=== PATIENT | male | born 1965 | race Caucasian/White ===

== ENCOUNTER → 2016-06-26 | Outpatient (CLI) | payer OTHER ==
[~2016-06-26] MED LIST: CHOL100010 PO; CINN500T PO; CLOB-65 EXT; FEXO3TAB PO; FINA5TAB PO; FLM4 PO; FURO80TA63 PO; INSU1INJ33 SC; INSUINJ4 SQ; LIDO5DIS10 TD; LORA-741 PO; LPR50X PO; LPT/40 PO; MAGN1TAB19 PO; METH-446 PO; MORP1TAB11 PO; MULT-884 PO; NTRGSL/4 UT; NVLGI SC; NXM/40 PO; OMEG10007 PO; OXYC-57 PO; PARO1TAB27 PO; POTA-74 PO; PROM25TA16 PO; RANI300T PO; SPIR50TA3 PO; SYMIN160 INH; TRAZ50TA35 PO; VNTHFA/IN INH; ZFRODT4HP PO; ZOLP5TAB6 PO; ZRX5 PO
[2016-06-26 17:59] LABS: BASO % 0.7 %; BASO ABS # 0.05 K/uL (0-0.2); COMPLETE YES; EOS % 4.8 %; HEMATOCRIT 41.6 % (42-52); IG% 0.1 %; LYMPH % 48.8 %; LYMPH ABS # 3.37 K/uL (1.2-3.4); MEAN CELL VOLUME 90.8 fL (80-100); MEAN CORPUSCULAR HEMOGLOBIN 32.5 pg (25-34); MEAN CORPUSCULAR HGB CONC 35.8 g/dl (32-36); MEAN PLATELET VOLUME 10.6 fL (7.4-10.4); NEUT % 32.6 %; PLATELET COUNT 263 K/uL (130-400); RED BLOOD COUNT 4.58 M/uL (4.7-6.1); WHITE BLOOD COUNT 6.91 K/uL (4.8-10.8)
[2016-06-26 19:00] LABS: ALT/SGPT 27 U/L (12-78); BLOOD UREA NITROGEN 12 mg/dl (7-18); BUN/CREATININE RATIO 11.2 (10-20); CALCIUM 8.7 mg/dl (8.5-10.1); CARBON DIOXIDE 27 mmol/L (21-32); CHLORIDE 101 mmol/L (98-107); GLUCOSE 215 mg/dl (70-99); POTASSIUM 3.7 mmol/L (3.5-5.1); SODIUM 138 mmol/L (136-145)
[2016-06-26 19:10] LABS: ALKALINE PHOSPHATASE 95 U/L (45-117); AST/SGOT 19 U/L (15-37); THYROID STIMULATING HORMONE 0.946 uIu/ml (0.300-4.500)
== END | disposition home or self-care (01) ==
LOC: C.RAD1850 15:59
PROVIDERS: ATTEND Family Medicine
DX: R06.02 Shortness of breath (principal)

== ENCOUNTER → 2016-07-09 | Outpatient (CLI) | payer OTHER ==
[2016-07-09 13:18] LABS: CHOLESTEROL/HDL RATIO 4.7
== END | disposition home or self-care (01) ==
LOC: C.LAB 10:38
PROVIDERS: ATTEND Nurse Practitioner Family
DX: E78.5 Hyperlipidemia, unspecified (principal)

== ENCOUNTER → 2016-07-28 | Outpatient (CLI) | payer OTHER ==
--- NOTE | 2016-07-28 12:36 | DIAGNOSTIC IMAGING REPORT ---
CHEST 2 VIEWS ROUTINE CLINICAL HISTORY: [id number] dyspnea COMPARISON STUDY: 03/11/2015 FINDINGS: The bones soft tissues and hemidiaphragms are normal. The cardiomediastinal silhouette is normal. The lungs are clear. The pulmonary vasculature is normal. IMPRESSION: Negative chest. Electronically signed by: Gaudencio Manley M.D. 07/28/2016 12:34 PM Dictated Date/Time: 07/28/2016 12:34 PM
== END | disposition home or self-care (01) ==
LOC: C.RAD 11:25
PROVIDERS: ATTEND Family Medicine
DX: R06.02 Shortness of breath (principal)

== ENCOUNTER → 2016-07-28 | Outpatient (CLI) | payer OTHER | END | disposition home or self-care (01) | LOC: C.RDSM 08:00 | PROVIDERS: ATTEND Physical Medicine & Rehabilitation Sports Medicine | DX: M25.561 Pain in right knee (principal); R06.02 Shortness of breath ==

== ENCOUNTER → 2016-08-21 | Outpatient (CLI) | payer OTHER ==
[2016-08-21 17:47] LABS: BLOOD UREA NITROGEN 13 mg/dl (7-18); BUN/CREATININE RATIO 9.4 (10-20); CALCIUM 8.4 mg/dl (8.5-10.1); CARBON DIOXIDE 33 mmol/L (21-32); CHLORIDE 103 mmol/L (98-107); GLUCOSE 177 mg/dl (70-99); SODIUM 141 mmol/L (136-145)
[2016-08-22 06:28] LABS: ESTIMATED AVERAGE GLUCOSE 169 mg/dl; HA1C FLAG Normal (Normal)
== END ==
LOC: C.LAB 16:05
PROVIDERS: ATTEND Family Medicine
DX: E11.9 Type 2 diabetes mellitus without complications (principal); E55.9 Vitamin D deficiency, unspecified; R60.9 Edema, unspecified

== ENCOUNTER → 2016-10-21 | Outpatient (CLI) | payer OTHER ==
[2016-10-21 17:12] LABS: BLOOD UREA NITROGEN 16 mg/dl (7-18); BUN/CREATININE RATIO 12.5 (10-20); CALCIUM 8.8 mg/dl (8.5-10.1); CARBON DIOXIDE 32 mmol/L (21-32); CHLORIDE 102 mmol/L (98-107); GLUCOSE 128 mg/dl (70-99); MAGNESIUM 2.3 mg/dl (1.8-2.4); PHOSPHORUS 3.8 mg/dl (2.5-4.9); SODIUM 142 mmol/L (136-145)
== END | disposition home or self-care (01) ==
LOC: C.LAB 15:36
PROVIDERS: ATTEND Internal Medicine Nephrology
DX: E87.6 Hypokalemia (principal)

== ENCOUNTER → 2016-12-18 | Outpatient (CLI) | payer OTHER ==
[2016-12-18 17:14] LABS: BLOOD UREA NITROGEN 10 mg/dl (7-18); BUN/CREATININE RATIO 9.1 (10-20); CALCIUM 8.6 mg/dl (8.5-10.1); CARBON DIOXIDE 32 mmol/L (21-32); CHLORIDE 100 mmol/L (98-107); GLUCOSE 152 mg/dl (70-99); POTASSIUM 3.7 mmol/L (3.5-5.1); SODIUM 137 mmol/L (136-145)
[2016-12-18 17:16] LABS: MAGNESIUM 2.1 mg/dl (1.8-2.4)
[2016-12-18 17:17] LABS: URINE TOTAL PROTEIN < 5.0 mg/dl (0-11.9)
[2016-12-19 07:19] LABS: ESTIMATED AVERAGE GLUCOSE 163 mg/dl; HA1C FLAG Normal (Normal)
--- NOTE | 2016-12-24 07:35 | CODING QUERY MEDICAL NECESSITY ---
CQSUPPORTING DIAGNOSIS NEEDED A supporting diagnosis is required for the test/procedure performed on this patient in order for us to be reimbursed by the patient's insurance. Please provide a supporting diagnosis for the following test/procedure listed below next to the test name along with your signature. *If there is no additional diagnosis for this patient that would support the following test/procedure please document that below next to the test/procedure. Test(s)/Procedure(s) that require a supporting diagnosis: DOS 12/18/16 VITAMIN B12 TEST ORDERED BY LEXIE PLUMMER Provider Signature: Date: Thank you Yazmin Andrews Health Information Management Once completed, please kindly fax back to [phone] For questions please call [phone]
== END | disposition home or self-care (01) ==
LOC: C.LAB 15:27
PROVIDERS: ATTEND Physician Assistant
DX: E11.42 Type 2 diabetes mellitus with diabetic polyneuropathy (principal); E11.22 Type 2 diabetes mellitus with diabetic chronic kidney disease; N18.3 Chronic kidney disease, stage 3 (moderate); E55.9 Vitamin D deficiency, unspecified; R60.9 Edema, unspecified; E11.9 Type 2 diabetes mellitus without complications; Z79.899 Other long term (current) drug therapy

== ENCOUNTER → 2016-12-26 | Day surgery (SDC) | payer OTHER ==
[2016-12-18 10:22] VITALS: Ht 182.9 cm; Wt 119.1 kg
[~2016-12-26] VITALS: Ht 182.9 cm; Wt 119.1 kg
[~2016-12-26] MED LIST changes: -FINA5TAB PO; -FLM4 PO; -INSUINJ4 SQ; -LIDO5DIS10 TD; +LIDOCAINE HCL 2% 2 ML VIAL (20MG/ML) ONE; -OMEG10007 PO; +PROPOFOL IV EMULSION 10 MG/ML 20 ML VIAL IV ONE; +SODIUM CHLORIDE 0.9% 500ML 500 ML IV ONE
--- NOTE | 2016-12-26 12:54 | Endo History and Physical ---
History & Physical Date of Service: Dec 26, 2016. Chief Complaint: Dysphagia, Hx of colon polyps Referring Physician: Dr Elkins History of Present Illness 51 yo CM who presents for EGD secondary to dysphagia and GERD and colonoscopy secondary to history of colon polyps. Past Medical History Diabetes, Arthritis, Male Genitourinary Prob., Reflux, High Cholesterol, Sleep Apnea, Hypertension, COPD Past Surgical History Hx Cardiac Surgery: Yes (HEART CATH, NO STENT) Hx Internal Defibrillator: No Hx Pacemaker: No Hx Abdominal Surgery: Yes (LT INGUINAL HERNIA REPAIR, APPY, STEPHANY) Hx of Implantable Prosthesis: No Hx Post-Op Nausea and Vomiting: No Hx Cancer Surgery: No Hx Thoracic Surgery: No Hx Orthopedic: Yes (LT/RT ELBOW, BACK SURGERY, CERVICAL SURGERY (FULL ROM), LT CTR, RT SHOULDER) Hx Urinary Tract Surgery: No Family History None Social History Smoking Status: Former Smoker Hx Substance Use: Yes (SEE MED LIST) Hx Alcohol Use: No Allergies Coded Allergies: Codeine (Verified Allergy, Intermediate, PRURITIS, HIVES, 12/18/16) CAN TOLERATE HYDROCODONE (ON AT HOME) Iodinated Diagnostic Agents (Verified Allergy, Unknown, HIVES, 12/18/16) Iodine (Verified Allergy, Unknown, HIVES, 12/18/16) Meperidine (Verified Allergy, Unknown, HIVES, 12/18/16) Morphine (Verified Allergy, Unknown, PRURITIS, HIVES, 12/18/16) CAN TOLERATE HYDROCODONE (ON AT HOME) Metformin (Verified Adverse Reaction, Intermediate, severe diarrhea, cramping, 12/18/16) Amoxicillin (Verified Adverse Reaction, Mild, GI SYMPTOMS, 12/18/16) Clavulanic Acid (Verified Adverse Reaction, Mild, GI SYMPTOMS, 12/18/16) Current Medications Reported Home Medications Medications Dose Route/Sig Max Daily Dose Days Date Category Dose Instructions Mucinex Allergy (Fexofenadine HCl) 180 Mg Tab 2 Tabs PO QPM 12/18/16 Reported Trazodone (Trazodone HCl) 50 Mg Tab 50 Mg PO HS 12/18/16 Reported Ventolin Hfa (Albuterol) 200 Puffs/20376 Mcg Aers 2-4 Puffs INH Q6H PRN 12/18/16 Reported Symbicort 160/4.5 Inhaler (Budesonide/Formoterol Fumarate) Aero 2 Puffs INH BID PRN 12/18/16 Reported Paxil (Paroxetine HCl) 20 Mg Tab 20 Mg PO QPM 12/18/16 Reported Robaxin (Methocarbamol) 750 Mg Tab 750 Mg PO TID PRN 12/18/16 Reported Tresiba Flextouch (Insulin Degludec) 100 Unit/Ml Inj 50-76 Units SC HS 12/18/16 Reported Percocet 5MG/325MG (Oxycodone/Acetaminophen) Tab 1 Tablet PO TID 03/04/16 Reported Morphine Sulfate Er (Morphine Sulfate) 15 Mg Tab 1 Tab PO BID 03/04/16 Reported Lipitor (Atorvastatin) 40 Mg Tab 40 Mg PO HS 03/04/16 Reported Nitrostat (Nitroglycerin) 0.4 Mg Tab 0.4 Mg UT PRN PRN 10/29/15 Reported Temovate 0.05% (Clobetasol Propionate) Cr 1 Appln EXT DIRECTED PRN 10/29/15 Reported Paxil (Paroxetine HCl) 20 Mg Tab 20 Mg PO QPM 10/29/15 Reported Lasix (Furosemide) 80 Mg Tab 120 Mg PO QAM 10/29/15 Reported Zolpidem Tartrate 5 Mg Tab 1 Tab PO HS PRN 06/04/15 Reported Metoprolol Tartrate 50 Mg Tab 1 Tab PO BID 06/04/15 Reported Magnesium Oxide (Magnesium Oxide (Mg Supplement) 400 Mg Tab 1 Tab PO QPM 06/04/15 Reported Ativan (Lorazepam) 0.5 Mg Tab 0.5 Mg PO TID 06/04/15 Reported Cinnamon 500 Mg Tab 2 Tab PO QAM 06/04/15 Reported Aldactone (Spironolactone) 50 Mg Tab 50 Mg PO QAM 03/11/15 Reported Zantac (Ranitidine Hcl) 300 Mg Tab 300 Mg PO BID 12/17/14 Reported Promethazine HCl 25 Mg Tab 25 Mg PO UD PRN 12/17/14 Reported Potassium Chloride Er (Potassium Chloride) 10 Meq Tab 10 Meq PO BID 12/17/14 Reported Novolog (Insulin Aspart) 100 Unit/ Inj Units SC TIDM 12/17/14 Reported sliding scale 20 UNITS WITH BREAKFAST 30 UNITS WITH LUNCH 50 UNITS WITH SUPPER + Nexium (Esomeprazole Magnesium) 40 Mg Cap 40 Mg PO BIDM 12/17/14 Reported Vital Signs Weight (Kilograms): 119.09 Height (Feet): 6 Height (Inches): 0 Date Time Temp Pulse Resp B/P (MAP) Pulse Ox O2 Delivery O2 Flow Rate FiO2 12/26/16 12:23 36.7 60 20 119/73 (88) 95 Room Air Physical Exam General Appearance: WD/WN, no apparent distress Respiratory/Chest: Auscultation: breath sounds normal Cardiovascular: Heart Auscultation: RRR Abdomen: Bowel Sounds: normal Inspection & Palpation: soft, non-distended, no tenderness, guarding & rebound Assessment and Plan Assessment: 51 yo CM who presents for EGD secondary to dysphagia and GERD and colonoscopy secondary to history of colon polyps. Plan: Proceed with EGD and colonoscopy.
--- NOTE | 2016-12-26 13:32 | GI REPORT ---
Procedure Date: 12/26/2016 1:02 PM Procedure: Upper GI endoscopy Indications: Dysphagia, Gastro-esophageal reflux disease Medicines: Monitored Anesthesia Care Complications: No immediate complications. Estimated Blood Loss: Estimated blood loss: none. Procedure: Pre-Anesthesia Assessment: - Prior to the procedure, a History and Physical was performed, and patient medications and allergies were reviewed. The patient's tolerance of previous anesthesia was also reviewed. The risks and benefits of the procedure and the sedation options and risks were discussed with the patient. All questions were answered, and informed consent was obtained. Prior Anticoagulants: The patient has taken no previous anticoagulant or antiplatelet agents. ASA Grade Assessment: III - A patient with severe systemic disease. After reviewing the risks and benefits, the patient was deemed in satisfactory condition to undergo the procedure. After obtaining informed consent, the endoscope was passed under direct vision. Throughout the procedure, the patient's blood pressure, pulse, and oxygen saturations were monitored continuously. The On-site loaner was introduced through the mouth, and advanced to the second part of duodenum. The upper GI endoscopy was accomplished without difficulty. The patient tolerated the procedure well. Findings: The esophagus was normal. A small hiatus hernia was present. One 10 mm sessile polyp with bleeding and no stigmata of recent bleeding was found in the gastric body. The polyp was removed with a saline injection-lift technique using a hot snare at 20 schneider. Resection and retrieval were complete. One hemostatic clip was successfully placed (MR conditional). Localized mild inflammation characterized by erythema was found in the gastric antrum. Biopsies were taken with a cold forceps for histology. The examined duodenum was normal. Impression: - Normal esophagus. - Small hiatus hernia. - One gastric polyp. Resected and retrieved. Clip (MR conditional) was placed. - Gastritis. Biopsied. - Normal examined duodenum. Recommendation: - Resume previous diet. - Continue present medications. - Return to primary care physician as previously scheduled. - Await pathology results. Garrison Fish, DO 12/26/2016 1:31:49 PM This report has been signed electronically. Note Initiated On: 12/26/2016 1:02 PM I attest to the content of the Intraoperative Record and orders documented therein, exceptions below
--- NOTE | 2016-12-26 14:00 | Anesthesiology Progress Note ---
Anesthesia Post Op Note Date & Time Dec 26, 2016 at 14:00 Vital Signs Vital Signs Past 12 Hours Date Time Temp Pulse Resp B/P (MAP) Pulse Ox O2 Delivery O2 Flow Rate FiO2 12/26/16 12:23 36.7 60 20 119/73 (88) 95 Room Air Notes Mental Status: alert / awake / arousable, participated in evaluation Pt Amnestic to Procedure: Yes Nausea / Vomiting: adequately controlled Pain: adequately controlled Airway Patency, RR, SpO2: stable & adequate BP & HR: stable & adequate Hydration State: stable & adequate Anesthetic Complications: no major complications apparent
--- NOTE | 2016-12-26 14:23 | GI REPORT ---
Procedure Date: 12/26/2016 1:31 PM Procedure: Colonoscopy Indications: High risk colon cancer surveillance: Personal history of colonic polyps Medicines: Monitored Anesthesia Care Complications: No immediate complications. Estimated Blood Loss: Estimated blood loss: none. Procedure: Pre-Anesthesia Assessment: - Prior to the procedure, a History and Physical was performed, and patient medications and allergies were reviewed. The patient's tolerance of previous anesthesia was also reviewed. The risks and benefits of the procedure and the sedation options and risks were discussed with the patient. All questions were answered, and informed consent was obtained. Prior Anticoagulants: The patient has taken no previous anticoagulant or antiplatelet agents. ASA Grade Assessment: III - A patient with severe systemic disease. After reviewing the risks and benefits, the patient was deemed in satisfactory condition to undergo the procedure. After I obtained informed consent, the scope was passed under direct vision. Throughout the procedure, the patient's blood pressure, pulse, and oxygen saturations were monitored continuously. The Scope was introduced through the anus and advanced to the cecum, identified by appendiceal orifice and ileocecal valve. The colonoscopy was performed without difficulty. The patient tolerated the procedure well. The quality of the bowel preparation was fair. The ileocecal valve and the rectum were photographed. Findings: Solid stool was found in the cecum, precluding visualization. Three flat polyps were found in the transverse colon. The polyps were 4 to 7 mm in size. These polyps were removed with a hot snare. Resection was complete, but the polyp tissue was only partially retrieved. Internal hemorrhoids were found during retroflexion. The hemorrhoids were small. Impression: - Stool in the cecum. - Three 4 to 7 mm polyps in the transverse colon, removed with a hot snare. Complete resection. Partial retrieval. - Internal hemorrhoids. Recommendation: - Resume previous diet. - Continue present medications. - Repeat colonoscopy for surveillance based on pathology results. - Return to primary care physician as previously scheduled. Garrison Fish, DO 12/26/2016 2:22:16 PM This report has been signed electronically. Note Initiated On: 12/26/2016 1:31 PM I attest to the content of the Intraoperative Record and orders documented therein, exceptions below
[2016-12-26 14:26] VITALS: BP 111/75; PULSE 56; O2SAT 95
--- NOTE | 2016-12-26 14:41 | Discharge Instructions ---
Endoscopy Patient Instructions Date / Procedure(s) Performed Dec 26, 2016. Colonoscopy, EGD Allergy Information Coded Allergies: Codeine (Verified Allergy, Intermediate, PRURITIS, HIVES, 12/18/16) CAN TOLERATE HYDROCODONE (ON AT HOME) Iodinated Diagnostic Agents (Verified Allergy, Unknown, HIVES, 12/18/16) Iodine (Verified Allergy, Unknown, HIVES, 12/18/16) Meperidine (Verified Allergy, Unknown, HIVES, 12/18/16) Morphine (Verified Allergy, Unknown, PRURITIS, HIVES, 12/18/16) CAN TOLERATE HYDROCODONE (ON AT HOME) Metformin (Verified Adverse Reaction, Intermediate, severe diarrhea, cramping, 12/18/16) Amoxicillin (Verified Adverse Reaction, Mild, GI SYMPTOMS, 12/18/16) Clavulanic Acid (Verified Adverse Reaction, Mild, GI SYMPTOMS, 12/18/16) Discharge Date / Findings Dec 26, 2016. EGD: Gastric polyp s/p resection, Gastritis with biopsies, Hiatal hernia Colonoscopy: Colon polyps, Internal hemorrhoids Medication Instructions Stopped Medication(s): Insulin OK to resume all medications today as prescribed Reported Home Medications Medications Dose Route/Sig Max Daily Dose Days Date Category Dose Instructions Mucinex Allergy (Fexofenadine HCl) 180 Mg Tab 2 Tabs PO QPM 12/18/16 Reported Trazodone (Trazodone HCl) 50 Mg Tab 50 Mg PO HS 12/18/16 Reported Ventolin Hfa (Albuterol) 200 Puffs/67622 Mcg Aers 2-4 Puffs INH Q6H PRN 12/18/16 Reported Symbicort 160/4.5 Inhaler (Budesonide/Formoterol Fumarate) Aero 2 Puffs INH BID PRN 12/18/16 Reported Paxil (Paroxetine HCl) 20 Mg Tab 20 Mg PO QPM 12/18/16 Reported Robaxin (Methocarbamol) 750 Mg Tab 750 Mg PO TID PRN 12/18/16 Reported Tresiba Flextouch (Insulin Degludec) 100 Unit/Ml Inj 50-76 Units SC HS 12/18/16 Reported Percocet 5MG/325MG (Oxycodone/Acetaminophen) Tab 1 Tablet PO TID 03/04/16 Reported Morphine Sulfate Er (Morphine Sulfate) 15 Mg Tab 1 Tab PO BID 03/04/16 Reported Lipitor (Atorvastatin) 40 Mg Tab 40 Mg PO HS 03/04/16 Reported Nitrostat (Nitroglycerin) 0.4 Mg Tab 0.4 Mg UT PRN PRN 10/29/15 Reported Temovate 0.05% (Clobetasol Propionate) Cr 1 Appln EXT DIRECTED PRN 10/29/15 Reported Paxil (Paroxetine HCl) 20 Mg Tab 20 Mg PO QPM 10/29/15 Reported Lasix (Furosemide) 80 Mg Tab 120 Mg PO QAM 10/29/15 Reported Zolpidem Tartrate 5 Mg Tab 1 Tab PO HS PRN 06/04/15 Reported Metoprolol Tartrate 50 Mg Tab 1 Tab PO BID 06/04/15 Reported Magnesium Oxide (Magnesium Oxide (Mg Supplement) 400 Mg Tab 1 Tab PO QPM 06/04/15 Reported Ativan (Lorazepam) 0.5 Mg Tab 0.5 Mg PO TID 06/04/15 Reported Cinnamon 500 Mg Tab 2 Tab PO QAM 06/04/15 Reported Aldactone (Spironolactone) 50 Mg Tab 50 Mg PO QAM 03/11/15 Reported Zantac (Ranitidine Hcl) 300 Mg Tab 300 Mg PO BID 12/17/14 Reported Promethazine HCl 25 Mg Tab 25 Mg PO UD PRN 12/17/14 Reported Potassium Chloride Er (Potassium Chloride) 10 Meq Tab 10 Meq PO BID 12/17/14 Reported Novolog (Insulin Aspart) 100 Unit/ Inj Units SC TIDM 12/17/14 Reported sliding scale 20 UNITS WITH BREAKFAST 30 UNITS WITH LUNCH 50 UNITS WITH SUPPER + Nexium (Esomeprazole Magnesium) 40 Mg Cap 40 Mg PO BIDM 12/17/14 Reported Provider Instructions Activity Restrictions - No exercising or heavy lifting for 24 hours. - Do not drink alcohol the day of the procedure. - Do not drive a car or operate machinery until the day after the procedure. - Do not make any important decisions or sign important papers in 24 hours after the procedure. Following Day: - Return to full activity which may include returning to work/school. Diet Start your diet with liquids and light foods (jello, soup, juice, toast). Then eat your usual diet if not nauseated. Treatment For Common After Affects For mild abdominal pain, bloating, or excessive gas: - Rest - Eat lightly - Lie on right side Follow-Up Information Follow-up with Dr Elkins as scheduled Anesthesia Information What You Should Know You have had a procedure that required some medicine to reduce anxiety and discomfort. This treatment is called moderate sedation. After receiving the treatment, you may be sleepy, but you will be able to breathe on your own. The effects of the treatment may last for several hours. Follow these instructions along with Activity/Diet recommendations noted above: * Do NOT do anything where dizziness or clumsiness would be dangerous. * Rest quietly at home today, then you can be up and about tomorrow. * Have a responsible person stay with you the rest of today. * You may have had an I.V. today. If so, you may take the dressing off later today. Recommendations Call your doctor if: * Trouble breathing * Continuous vomiting for more than 24 hours * Temperature above 101 degrees * Severe abdominal pain or bloating * Pain not relieved by pain medicine ordered * There is increased drainage or redness from any incision * A large amount of rectal bleeding greater than 2-3 tablespoons. (If you had a polyp/s removed or have hemorrhoids, a small amount of blood - from the rectum is to be expected.) * You have any unanswered questions or concerns. IN THE EVENT OF A SERIOUS EMERGENCY, GO TO THE NEAREST EMERGENCY ROOM Your discharge instructions were prepared by provider Garrison Fish. Patient Instructions Signature Page Tommie Gomez Patient (or Guardian) Signature/Date: I have read and understand the instructions given to me by my caregivers. Caregiver/RN/Doctor Signature/Date: The above-named patient and/or guardian has received patient instructions on this date. + Original Patient Signature Page (only) stays with chart. Please make copy for patient.
== END | disposition home or self-care (01) ==
LOC: C.GI 11:27
PROVIDERS: ATTEND Internal Medicine
DX: Z12.11 Encounter for screening for malignant neoplasm of colon (principal); D12.3 Benign neoplasm of transverse colon; K29.50 Unspecified chronic gastritis without bleeding; K64.8 Other hemorrhoids; D13.1 Benign neoplasm of stomach; K44.9 Diaphragmatic hernia without obstruction or gangrene; K21.9 Gastro-esophageal reflux disease without esophagitis; Z79.899 Other long term (current) drug therapy

== ENCOUNTER 2017-01-20 17:25 | Inpatient (IN) | payer OTHER ==
[~2017-01-20] VITALS: Ht 182.9 cm; Wt 117.6 kg
[~2017-01-20 17:25] MED LIST changes: -ZFRODT4HP PO; -ZRX5 PO
--- NOTE | 2017-01-20 17:50 | EMERGENCY ROOM VISIT NOTE ---
History Report prepared by Apolinar: Annita Villarreal Under the Supervision of: Dr. Gonsalo Warren D.O. 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 The patient states that for the last 2 weeks he has not been feeling well and had labs ordered by his doctor. He reports that he was at [facility] today when his nose started bleeding and he got a call from Randi Fish PA-C about his labs that came back abnormal. He notes that he was told to come into the ED for low potassium and electrolytes. The patient complains of intermittent headaches, shortness of breath, nausea, vomiting, constipation, and urinary frequency. He states that he did have a 14 pound weight loss over the last week. He notes a history of kidney disease and neuropathy. The patient states that he has had some chest pain from his acid reflux that he takes nitroglycerin for. Chest pain from acid reflux takes nitroglycerin. He reports that he is on Aldactone and was taken off of Lasix recently. He states that he recently had an echo done of his heart when he saw his bell spinner. Source of History: patient Onset: today Position: other (global) Quality: other (abnormal labs) Timing: other (episode) Associated Symptoms: + headache, + chest pain, + SOB, + nausea, + vomiting, + urinary symptoms Note: The patient complains of constipation. Review of Systems See HPI for pertinent positives & negatives. A total of 10 systems reviewed and were otherwise negative. Past Medical & Surgical Medical Problems: (1) Diab Gabrielle Wo Compl, Type Ii Or Unspec Type, Not Uncntrld (2) Diabetes (3) Edema (4) Esophageal Reflux (5) Hyperlipidemia Nec/Nos (6) Hypertension Nos (7) Hypomagnesemia (8) Neuropathy (9) severe hypokalemia, acute on crhonic renal injury Surgical Problems: (1) History of cholecystectomy (2) Hx of cervical spine surgery Family History Cancer Diabetes mellitus FH: heart disease FHx: gallbladder disease FHx: lung disease Hypertension Kidney disease Kidney stones Social History Smoking Status: Never Smoker Alcohol Use: none Drug Use: none Marital Status: Housing Status: lives with family Occupation Status: employed Current/Historical Medications Scheduled Atorvastatin (Lipitor), 40 MG PO HS Cinnamon (Cinnamon), 2 TAB PO QAM Esomeprazole Magnesium (Nexium), 40 MG PO BIDM Furosemide (Lasix), 120 MG PO QAM Insulin Aspart (Novolog), UNITS SC TIDM Insulin Degludec (Tresiba Flextouch), 50-76 UNITS SC HS Lorazepam (Ativan), 0.5 MG PO TID Magnesium Oxide (Mg Supplement (Magnesium Oxide), 1 TAB PO QPM Metolazone (Metolazone), 5 MG PO DAILY Metoprolol Tartrate (Metoprolol Tartrate), 1 TAB PO BID Morphine Sulfate (Morphine Sulfate Er), 1 TAB PO BID Oxycodone/Acetaminophen 5MG/325MG (Percocet 5MG/325MG), 1 TABLET PO TID Paroxetine (Paxil), 20 MG PO QPM Potassium Chloride (Potassium Chloride Er), 10 MEQ PO BID Ranitidine Hcl (Zantac), 300 MG PO BID Trazodone Hcl (Trazodone), 50 MG PO HS Scheduled PRN Albuterol Hfa (Ventolin Hfa), 2-4 PUFFS INH Q6H PRN for SOB/Wheezing Budesonide/Formoterol Fumarate (Symbicort 160/4.5 Inhaler ), 2 PUFFS INH BID PRN for Shortness of Breath Nitroglycerin (Nitrostat), 0.4 MG UT PRN PRN for chest pain Ondansetron (Ondansetron Odt), 4 MG PO Q4 PRN for Nausea Promethazine HCl (Promethazine HCl), 25 MG PO UD PRN for Nausea Allergies Coded Allergies: Codeine (Verified Allergy, Intermediate, PRURITIS, HIVES, 01/20/17) CAN TOLERATE HYDROCODONE (ON AT HOME) ON MS CONTIN WELL Iodinated Diagnostic Agents (Verified Allergy, Unknown, HIVES, 01/20/17) Iodine (Verified Allergy, Unknown, HIVES, 01/20/17) Meperidine (Verified Allergy, Unknown, HIVES, 01/20/17) Spironolactone (Unverified Allergy, Unknown, GROWING BREASTS, 01/20/17) Metformin (Verified Adverse Reaction, Intermediate, severe diarrhea, cramping, 01/20/17) Amoxicillin (Verified Adverse Reaction, Mild, GI SYMPTOMS, 01/20/17) Clavulanic Acid (Verified Adverse Reaction, Mild, GI SYMPTOMS, 01/20/17) Physical Exam Vital Signs Date Time Temp Pulse Resp B/P (MAP) Pulse Ox O2 Delivery O2 Flow Rate FiO2 01/20/17 19:02 121/77 01/20/17 18:55 69 15 91 01/20/17 18:31 124/78 01/20/17 18:25 67 10 91 01/20/17 18:20 74 01/20/17 18:13 69 18 124/70 94 Room Air 01/20/17 18:11 124/70 01/20/17 17:30 36.6 70 18 156/88 93 Room Air Physical Exam GENERAL: Patient is awake, alert, and in no acute distress. Patient is resting comfortably and showing no signs of anxiety EYES: The conjunctivae are clear. The pupils are round and reactive. EARS, NOSE, MOUTH AND THROAT: The nose is without any evidence of any deformity. Mucous membranes are moist tongue is midline NECK: The neck is nontender and supple. RESPIRATORY: Lung sounds diminished throughout, scattered rhonchi, no tachypnea or conversational dyspnea noted. CARDIOVASCULAR: Regular rate and rhythm noted there no murmurs rubs or gallops normal S1 normal S2 GASTROINTESTINAL: The abdomen is soft. Bowel sounds are present in all quadrants. Abdomen is nontender MUSCULOSKELETAL/EXTREMITIES: There is no evidence of gross deformity full range of motion is noted in the hips and shoulders SKIN: There is no obvious evidence of any rash. Pedal edema with venostasis changes NEUROLOGIC: Patient is awake alert and oriented x3 strength is symmetric patellar reflexes are 1+ bilaterally Medical Decision & Procedures ER Provider Diagnostic Interpretation: X-ray results as stated below per interpretation by me and the radiologist. CHEST ONE VIEW PORTABLE FINDINGS: Anterior cervical spine fusion is incidentally noted. There is no pneumothorax or pleural effusion. There is no consolidation to suggest pneumonia. Pulmonary vascularity is normal. Cardiomediastinal silhouette is normal. No lucency is identified under the hemidiaphragms to suggest pneumoperitoneum. IMPRESSION: No acute cardiopulmonary findings. Electronically signed by: El Phelan M.D. 01/20/2017 6:43 PM Dictated Date/Time: 01/20/2017 6:43 PM Laboratory Results Test 01/20/17 17:55 Prothrombin Time 10.9 SECONDS (9.0-12.0) Prothromb Time International Ratio 1.0 (0.9-1.1) Activated Partial Thromboplast Time 26.7 SECONDS (21.0-31.0) Partial Thromboplastin Ratio 1.0 Osmolality 287 mOsm/kg (280-300) Total Bilirubin 0.9 mg/dl (0.2-1) Direct Bilirubin 0.2 mg/dl (0-0.2) Aspartate Amino Transf (AST/SGOT) 31 U/L (15-37) Alanine Aminotransferase (ALT/SGPT) 25 U/L (12-78) Alkaline Phosphatase 94 U/L (45-117) Troponin I 0.016 ng/ml (0-0.045) Pro-B-Type Natriuretic Peptide 143 pg/ml (0-900) Total Protein 8.3 gm/dl (6.4-8.2) Albumin 4.1 gm/dl (3.4-5.0) Lipase 104 U/L (73-393) Hepatitis C Antibody Screen NEG (NEG) Laboratory results per my review. Medications Administered Medications (Trade) Dose Ordered Sig/Mamadou Route Start Time Stop Time Status Last Admin Dose Admin Sodium Chloride 500 ml @ 999 mls/hr Q31M STAT IV 01/20/17 17:53 01/20/17 18:23 DC 01/20/17 18:09 999 MLS/HR Potassium Chloride (Kcl 10 Meq / Wtr) 10 meq NOW STAT IV 01/20/17 17:53 01/20/17 17:54 DC 01/20/17 18:09 10 MEQ Potassium Chloride (Kcl 10 Meq / Wtr) 10 meq NOW STAT IV 01/20/17 18:48 01/20/17 18:49 DC 01/20/17 18:48 10 MEQ Ondansetron HCl (Zofran Inj) 4 mg Q6H PRN IV 01/20/17 19:00 02/19/17 18:59 01/20/17 21:53 4 MG Potassium Chloride (Klor-Con M10) 40 meq NOW STAT PO 01/20/17 18:51 01/20/17 19:29 DC 01/20/17 18:51 40 MEQ ECG Indication: weakness Rate (beats per minute): 70 Rhythm: normal sinus Findings: ST depression (inferior and lateral), no ectopy Comparison ECG Date: 10/29/15 Change: Changes are new. ED Course 1734: The patient was evaluated in room A3. A complete history and physical examination were performed. 175: Potassium Chloride 10meq IV, NSS 500 @ 999 mls/hr IV. ' 1810: I discussed the patient's case with Dr. Camarillo of [facility] [place]. The patient will be evaluated for further management. 1847: Potassium Chloride 10meq IV. 185: Upon reevaluation, the patient is doing well. I discussed results and treatment plan with the patient. He verbalizes agreement and understanding. I spoke with Dr. Camarillo of the [facility] [place]. The patient will be evaluated for further management and care. Medical Decision Differential diagnosis: Etiologies such as premature contractions, electrolyte abnormality, cardiac dysrhythmia, thyroid dysfunction, pulmonary embolism, infection, gastrointestinal, as well as others were entertained. Nursing notes reviewed. The patient's recent laboratory values were reviewed. The patient is a 51-year-old male who has a history of heart failure as well as renal problems who was sent to the emergency department after laboratory studies revealed hypokalemia and hyponatremia. The patient has had some medication changes recently and I do feel this is the cause for his abnormal laboratory studies however they were repeated in the emergency department. I discussed the patient's laboratory results with him as well as his family members. I also discussed his case with the on-call [facility] hospitalist group. He was treated with IV potassium as well as normal saline in the emergency department. He was reevaluated multiple times. Medication Reconcilliation Current Medication List: was personally reviewed by me Blood Pressure Screening Patient's blood pressure: Elevated blood pressure Blood pressure disposition: Elevated BP felt to be situational Consults Time Called: 1805 Consulting Physician: Dr. Rabia GARCIAS Returned Call: 1810 I discussed the patient's case with Dr. Rabia GARCIAS. The patient will be evaluated for further management. Impression Primary Impression: Weakness Additional Impressions: Hyponatremia Hypokalemia Abnormal EKG Scribe Attestation The scribe's documentation has been prepared under my direction and personally reviewed by me in its entirety. I confirm that the note above accurately reflects all work, treatment, procedures, and medical decision making performed by me. Departure Information Dispostion Being Evaluated By Hospitalist Referrals Saleeby, Hussam G., M.D. (PCP) Patient Instructions My [facility] Problem Qualifiers
[2017-01-20] MEDS ORDERED: POTASSIUM CHLORIDE 10 MEQ / 100ML WTR IV STA ×2 (17:53→18:48)
[2017-01-20] MEDS ORDERED: SODIUM CHLORIDE 0.9% 500ML 500 ML IV STA (17:53)
[2017-01-20] MEDS ORDERED: ZRX5 PO (17:59)
[2017-01-20] MEDS ORDERED: ZFRODT4HP PO (17:59)
[2017-01-20 18:09] LABS: BASO % 0.4 %; BASO ABS # 0.04 K/uL (0-0.2); COMPLETE YES; EOS % 0.5 %; IG% 0.2 %; LYMPH % 33.6 %; MEAN CORPUSCULAR HEMOGLOBIN 31.9 pg (25-34); MEAN CORPUSCULAR HGB CONC 36.7 g/dl (32-36); MEAN PLATELET VOLUME 10.2 fL (7.4-10.4); MONO % 12.6 %; NEUT % 52.7 %; PLATELET COUNT 302 K/uL (130-400); RED BLOOD COUNT 5.17 M/uL (4.7-6.1); WHITE BLOOD COUNT 9.23 K/uL (4.8-10.8)
[2017-01-20 18:27] LABS: PROTHROMBIN TIME (PATIENT) 10.9 SECONDS (9.0-12.0)
[2017-01-20 18:39] LABS: BUN/CREATININE RATIO 19.4 (10-20); CALCIUM 9.5 mg/dl (8.5-10.1); CREATININE 1.4 mg/dl (0.60-1.40); MAGNESIUM 2.1 mg/dl (1.8-2.4)
--- NOTE | 2017-01-20 18:45 | DIAGNOSTIC IMAGING REPORT ---
CHEST ONE VIEW PORTABLE CLINICAL HISTORY: Abdominal pain. COMPARISON STUDY: Chest radiograph July 28, 2016. FINDINGS: Anterior cervical spine fusion is incidentally noted. There is no pneumothorax or pleural effusion. There is no consolidation to suggest pneumonia. Pulmonary vascularity is normal. Cardiomediastinal silhouette is normal. No lucency is identified under the hemidiaphragms to suggest pneumoperitoneum. IMPRESSION: No acute cardiopulmonary findings. Electronically signed by: El Phelan M.D. 01/20/2017 6:43 PM Dictated Date/Time: 01/20/2017 6:43 PM
[2017-01-20] MEDS ORDERED: POTASSIUM CHLORIDE 10 MEQ TABCR PO STA (18:51)
[2017-01-20] MEDS ORDERED: ALUMINUM/MAGNESIUM/SIMETH (MAALOX MAX) 30 ML UDC PO PRN (19:00)
[2017-01-20] MEDS ORDERED: ZOLPIDEM TARTRATE 5 MG TAB PO PRN (19:00)
[2017-01-20] MEDS ORDERED: POLYETHYLENE (MIRALAX) 17 GM PACK PO PRN ×2 (19:00→19:15)
[2017-01-20] MEDS ORDERED: ACETAMINOPHEN 325 MG TAB PO PRN (19:00)
[2017-01-20] MEDS ORDERED: ALBUTEROL HFA 8 GM INHALER INH PRN (19:00)
[2017-01-20] MEDS ORDERED: PROMETHAZINE HCL 25 MG TAB PO PRN (19:00)
[2017-01-20] MEDS ORDERED: ONDANSETRON INJ 2 MG/ML 2 ML VIAL IV PRN (19:00)
[2017-01-20] MEDS ORDERED: MAGNESIUM HYDROXIDE SUSP 30 ML UDC PO PRN (19:00)
[2017-01-20] MEDS ORDERED: NITROGLYCERIN 0.4 MG SL PER TAB CHARGE UT PRN (19:00)
--- NOTE | 2017-01-20 19:25 | History and Physical ---
History & Physical Date of Service Jan 20, 2017. History & Physical severe hypokalemia, acute on chronic renal injury, [id number]
[2017-01-20] MEDS ORDERED: POLYETHYLENE (MIRALAX) 17 GM PACK PO ONE (21:00)
[2017-01-20] MEDS ORDERED: TRAZODONE HCL 50 MG TAB PO SCH (21:00)
[2017-01-20 21:08] VITALS: BP 145/69; PULSE 68; TEMP 37.4; O2SAT 92; BMI 35.4
--- NOTE | 2017-01-20 21:08 | HISTORY & PHYSICAL EXAMINATION ---
DATE OF ADMISSION: 01/20/2017 This is a level 3 inpatient admission, 40 minutes. CHIEF COMPLAINT: Severe hypokalemia and constipation. HISTORY OF PRESENT ILLNESS: The patient is a 51-year-old white male with a significant past medical history of diabetes, on insulin pump, GERD, dyslipidemia, hypertension, neuropathy, history of CHF and fluid retention, coming to the hospital Emergency Department because of the above chief complaint. The patient was advised to come to the Emergency Room because of abnormal labs. He reports having problem of weight gaining 2 weeks ago after stopping medication of Aldactone. He had gained 14 pounds. About 2 weeks ago, his pantry attendant changed his medication with Lasix plus metolazone. After he taking this medication, he has good urine output. The lower extremity swelling was significantly improved and weight lost was 14 pounds. However, he reports today he may have some nose bleedings. He was told has lab abnormals was well, which is potassium 2.0. He was advised to come to the Emergency Department. He complained about intermittent abdominal pain, but no bowel movement for 1 week, passing gas. Also, reports intermittent headache, shortness of breath, nausea, occasional vomiting, but no vomiting for recent 2 days. He has a history of chronic kidney disease and also neuropathy. Occasionally has chest pain which is from acid reflux. He takes a nitroglycerin for that. In the Emergency Room, he was found to have significant low potassium at 2.0 in repeated lab. When I interviewed with him, he was awake, alert and oriented, conversational, follows all commands. He confirmed me the above information. Denied fever or chills. Denied cough, sputum. Denied nausea, vomiting. Denied diarrhea, but positive for constipation. He reported generalized weakness. PAST MEDICAL HISTORY: Like I mentioned in the above, diabetic, edema, insulin pump, GERD, dyslipidemia, hypertension, hypomagnesemia, neuropathy. PAST SURGICAL HISTORY: Include, cholecystectomy and cervical spine surgery. FAMILY HISTORY: Include cancer, diabetic, heart disease, gallbladder disease, lung disease, hypertension, kidney disease and a kidney stone. SOCIAL HISTORY: He never smoked. Denied alcohol abuse disorder, denied illicit drug abuse. Lives with his family. MEDICATIONS: Currently include, Lipitor 40 mg p.o. at bedtime, cinnamon 2 tab p.o. q.a.m., Nexium 40 mg p.o. b.i.d., Lasix 120 mg p.o. q.a.m., insulin aspart use t.i.d., insulin Degludec 50 -76 units subQ at bedtime, Ativan 0.5 mg p.o. t.id Mag oxide 400mg., 1 tab p.o. q.p.m., metolazone 5 mg p.o. daily, metoprolol 1 tab p.o. b.i.d., morphine 1 tab p.o. b.i.d. Percocet 5/325 mg one tab p.o. t.i.d., Paxil 20 mg p.o. q.p.m., potassium chloride 10 mEq p.o. b.i.d., ranitidine 300 mg p.o. b.i.d., trazodone 50 mg p.o. at bedtime. Albuterol 2-4 puffs q 6 hours as needed for shortness of breath, Symbicort 160/4.5 inhaler two puffs inhaled b.i.d. p.r.n. for shortness of breath, Nitrostat 0.4 mg p.r.n. for chest pain, Zofran 4 mg p.o. q. 4 hours p.r.n. for nausea, promethazine 25 mg p.o. use as directed for nausea. ALLERGIES: TO CODEINE, IODINATED DIAGNOSTIC AGENTS, MEPERIDINE, MORPHINE, SPIRONOLACTONE, METFORMIN, AMOXICILLIN, CLAVULANIC ACID. PHYSICAL EXAMINATION: VITAL SIGNS: Temperature 36.6, pulse 70, respiration rate 18, blood pressure 156/88. Improved to 124/70, pulse ox was 93% on room air. GENERAL: The patient is a white male, awake, alert, and oriented, conversational, obesity, BMI 35.4. HEAD: Normocephalic. EYES: Pupils equal, round responds to light. EARS: Ear was normal. NOSE: Normal. NECK: Supple. Thyroid no enlargement. Trachea midline. HEART: Regular rhythm. S1, S2. LUNGS: Decreased breathing sounds. There was no obvious wheezing, rhonchi or crackles. ABDOMEN: Mildly distended. Mild diffuse tender. EXTREMITIES: Lower extremities, no obvious swelling. Homans sign was negative. Calf was nontender. SKIN: No abrasions. NEUROLOGICAL: Cranial nerve II-XII was intact. There was no local deficit. LABORATORY STUDIES: WBC 9.2, hemoglobin 16, platelet 302. PT/INR was 10/1. Sodium 129, potassium 2, chloride 83, bicarbonate 38. BUN 27, creatinine 1.4. Blood glucose 242. Uric acid 10.2. Calcium 9.5. AST, ALT liver function test was normal. Total protein 8.3. IMAGING STUDIES: Emergency Room did a chest x-ray. There was no acute pulmonary finding. EKG was done in the Emergency Room, which was normal sinus rhythm. There was nonspecific T-wave changes, and there was prolonged QT. ASSESSMENT AND PLAN: A 51-year-old white male with the conditions seen below. 1. Severe hypokalemia. 2. Elevated uric acid level. 3. Abdominal pain likely because of constipation. 4. History of congestive heart failure. 5. Possible acute on chronic kidney injuries. 6. Insulin-dependent diabetic, on insulin pump and uncontrolled, recent A1c was 7.3 on 12/18/2016. 7. History of gastroesophageal reflux disease. 8. History of hypertension. 9. Neuropathy. PLAN: 1. Because the patient has severe hypokalemia, I will give 40 mEq IV for now and we will check potassium level at midnight. We will tele admission. Follow up tomorrow morning lab. I will hold Lasix and metolazone for now. Tomorrow, we will reevaluation after the labs levels are repeated. I will consult pantry attendant to adjust his medication. We will watch renal functions. 2. The patient need to follow up with PCP for the elevated uric acid levels. 3. For the uncontrolled diabetic type 2, on insulin pump. We will have pharmacy consultation for blood glucose management. 4. History of congestive heart failure, currently is compensated, but obviously diuretic cause severe hypokalemia and mild hyponatremia. 5. Hyponatremia. We will continue current home medications for the treatment of anxiety, neuropathy, chronic pain, hypertension, dyslipidemia, and the above-mentioned insulin-dependent diabetes. Discussed with patient and family about the care plan. I answered all the questions. The patient is full code. MTDD
[2017-01-20] MEDS ORDERED: PHARMACY GLYCEMIC MGMT CONSULT PRN (21:30)
[2017-01-20] MEDS: POTASSIUM CHLR 10 MEQ / WTR 10 MEQ in PREMIXED WATER 100 ML IV SCH ×3 (21:32→23:58)
[2017-01-20] MEDS: METOPROLOL TARTRATE 50 MG TAB PO SCH (21:33)
[2017-01-20] MEDS: MAGNESIUM OXIDE 400 MG TAB PO SCH (21:34)
[2017-01-20] MEDS: PAROXETINE 20 MG TAB PO SCH (21:34)
[2017-01-20] MEDS: ATORVASTATIN 40 MG TAB PO SCH (21:35)
[2017-01-20] MEDS: RANITIDINE HCL 150 MG TAB PO SCH (21:35)
[2017-01-20] MEDS: HEPARIN SOD 5000 UNIT/0.5 ML CARP SQ SCH (21:37)
[2017-01-20] MEDS: LORAZEPAM 0.5 MG TAB PO SCH (21:43)
[2017-01-20] MEDS: MoRPHine SULFATE CR 15 MG TAB (MS CONTIN) PO SCH (21:43)
[2017-01-20] MEDS: OXYCODONE/ACETAMINOPHEN 5-325 TAB PO SCH (21:44)
[2017-01-20] MEDS ORDERED: GLUCOSE 10 TABS/TUBE PO PRN (22:15)
[2017-01-20] MEDS ORDERED: GLUCOSE 40% GEL 15 GM TUBE PO PRN (22:15)
[2017-01-20] MEDS ORDERED: DEXTROSE 50% 50 ML SYR IV PRN (22:15)
[2017-01-20] MEDS ORDERED: GLUCAGON FOR INJ 1 MG VIAL SQ PRN (22:15)
[2017-01-20] MEDS ORDERED: INSULIN GLARGINE SOLOSTAR 100 UNITS/ML 3 ML PEN SC SCH (22:30)
[2017-01-20] MEDS: INSULIN ASPART 100 UNITS/ML 3 ML PEN SC SCH (22:33)
[2017-01-20] MEDS ORDERED: PNEUMOCOCCAL ADMINISTRATION CHARGE ONE (23:15)
[2017-01-20] MEDS ORDERED: PNEUMOCOCCAL POLYSACCHARIDES 25 MCG/0.5 ML VIAL/SYR IM. ONE (23:15)
[2017-01-20 23:52] LABS: BUN/CREATININE RATIO 17.5 (10-20); CALCIUM 8.9 mg/dl (8.5-10.1); CREATININE 1.4 mg/dl (0.60-1.40); POTASSIUM 2.3 mmol/L (3.5-5.1)
[2017-01-20 23:59] VITALS: BP 150/77; PULSE 73; TEMP 37; O2SAT 94
[2017-01-21 00:56] LABS: THYROID STIMULATING HORMONE 1.54 uIu/ml (0.300-4.500)
[2017-01-21] MEDS: POTASSIUM CHLR 10 MEQ / WTR 10 MEQ in PREMIXED WATER 100 ML IV SCH (01:53)
[2017-01-21] MEDS ORDERED: POTASSIUM CHLORIDE 20 MEQ TABCR PO STA ×2 (03:00→16:10)
[2017-01-21 04:00] VITALS: BP 125/77; PULSE 58; TEMP 36.5; O2SAT 95
[2017-01-21 05:49] LABS: BASO % 0.3 %; BASO ABS # 0.03 K/uL (0-0.2); COMPLETE YES; EOS % 1.2 %; HEMATOCRIT 42.4 % (42-52); IG% 0.2 %; LYMPH % 42.8 %; LYMPH ABS # 4.21 K/uL (1.2-3.4); MEAN CORPUSCULAR HEMOGLOBIN 32.4 pg (25-34); MEAN CORPUSCULAR HGB CONC 36.8 g/dl (32-36); MEAN PLATELET VOLUME 10.3 fL (7.4-10.4); MONO % 15.4 %; NEUT % 40.1 %; PLATELET COUNT 262 K/uL (130-400); RED BLOOD COUNT 4.82 M/uL (4.7-6.1); WHITE BLOOD COUNT 9.83 K/uL (4.8-10.8)
[2017-01-21 06:20] LABS: BUN/CREATININE RATIO 18.5 (10-20); CALCIUM 8.9 mg/dl (8.5-10.1); CREATININE 1.1 mg/dl (0.60-1.40); MAGNESIUM 2.4 mg/dl (1.8-2.4); POTASSIUM 2.4 mmol/L (3.5-5.1)
[2017-01-21] MEDS ORDERED: POTASSIUM CHLORIDE 10 MEQ TABCR PO SCH (07:15)
[2017-01-21] MEDS: PANTOprazole SOD 40 MG TAB PO SCH ×2 (07:27→16:53)
[2017-01-21] MEDS: RANITIDINE HCL 150 MG TAB PO SCH ×2 (07:27→20:14)
[2017-01-21] MEDS: METOPROLOL TARTRATE 50 MG TAB PO SCH ×2 (07:28→20:13)
[2017-01-21] MEDS: LORAZEPAM 0.5 MG TAB PO SCH ×2 (07:30→14:00)
[2017-01-21] MEDS: HEPARIN SOD 5000 UNIT/0.5 ML CARP SQ SCH ×2 (07:31→20:13)
[2017-01-21] MEDS: OXYCODONE/ACETAMINOPHEN 5-325 TAB PO SCH ×2 (07:31→14:00)
[2017-01-21] MEDS: MoRPHine SULFATE CR 15 MG TAB (MS CONTIN) PO SCH ×2 (07:31→20:19)
[2017-01-21] MEDS: INSULIN ASPART 100 UNITS/ML 3 ML PEN SC SCH ×4 (07:36→20:12)
[2017-01-21 07:46] VITALS: BP 125/80; PULSE 62; TEMP 36.4; O2SAT 91
[2017-01-21] MEDS ORDERED: CINNAMON PO SCH (09:00)
[2017-01-21] MEDS ORDERED: POTASSIUM CHLORIDE 20 MEQ TABCR PO ONE ×2 (09:45→12:00)
--- NOTE | 2017-01-21 10:48 | Clinical Documentation Query ---
QUERY 1 OF [address] CAMARENA, In your clinical opinion is this patient being managed for: (x ) Chronic kidney disease, stage 2-3 ( ) Not Agree ( ) Other explanation of clinical findings (Please Explain) ( ) Unable to determine (Please Define) ( ) Need to Discuss The medical record reflects the following clinical findings, treatment, and risk factors. Clinical Indicators: 51 yo male presenting with hypokalemia and hyponatremia, noted to have kidney disease. Review of historical GFR showed range of 57-76.8 Treatment: monitor PRP, treat comorbid conditions Risk Factors: DM with neuropathy, HTN QUERY 2 OF 2 In your clinical opinion is this patient being managed for: (x ) Chronic diastolic CHF ( ) Not Agree ( ) Other explanation of clinical findings (Please Explain) ( ) Unable to determine (Please Define) ( ) Need to Discuss The medical record reflects the following clinical findings, treatment, and risk factors. Clinical Indicators: Pt noted to have a history of CHF. Review of cardiac cath from 2016 showed EF of 65%. Treatment:chronic meds include lasix, metolazone and metoprolol Risk Factors:DM, HTN Please clarify and document your clinical opinion in the progress notes and discharge summary. Terms such as "probable", "suspected", "likely", "questionable", "possible", or "still to be ruled out" are acceptable. IF IN AGREEMENT, YOU MUST DOCUMENT ABOVE DIAGNOSTIC STATEMENT IN DAILY PROGRESS NOTES AND DISCHARGE SUMMARY. This document is not part of the patient's record. Thank You, Elsa Rodriguez, RN [phone]
--- NOTE | 2017-01-21 11:19 | Pharmacy Progress Note ---
Glycemic Control Intl Consult Date of Service Jan 21, 2017. Scope Glycemic Pharmacist consulted by Dr Camarillo on 01/20/17 for glycemic control and to write orders per [facility] inpatient glycemic control protocol Objective Weight (Kilograms): 118.000 Accuchecks BSG (last 24hrs): Test 01/20/17 17:55 01/20/17 20:54 01/20/17 22:28 01/20/17 23:09 Random Glucose 242 mg/dl (70-99) 194 mg/dl (70-99) Bedside Glucose 217 mg/dl (70-99) 239 mg/dl (70-99) Test 01/21/17 05:13 Random Glucose 156 mg/dl (70-99) Laboratory Data (last 24hrs) Test 01/20/17 17:55 01/20/17 23:09 01/21/17 05:13 Anion Gap 8.0 mmol/L 8.0 mmol/L 8.0 mmol/L BUN/Creatinine Ratio 19.4 17.5 18.5 Blood Urea Nitrogen 27 mg/dl 24 mg/dl 20 mg/dl Creatinine 1.40 mg/dl 1.40 mg/dl 1.10 mg/dl Potassium Level 2.0 mmol/L 2.3 mmol/L 2.4 mmol/L Sodium Level 129 mmol/L 133 mmol/L 137 mmol/L White Blood Count 9.23 K/uL 9.83 K/uL Red Blood Count 5.17 M/uL 4.82 M/uL Hemoglobin 16.5 g/dL 15.6 g/dL Hematocrit 45.0 % 42.4 % Mean Corpuscular Volume 87.0 fL 88.0 fL Mean Corpuscular Hemoglobin 31.9 pg 32.4 pg Mean Corpuscular Hemoglobin Concent 36.7 g/dl 36.8 g/dl Platelet Count 302 K/uL 262 K/uL Mean Platelet Volume 10.2 fL 10.3 fL Neutrophils (%) (Auto) 52.7 % 40.1 % Lymphocytes (%) (Auto) 33.6 % 42.8 % Monocytes (%) (Auto) 12.6 % 15.4 % Eosinophils (%) (Auto) 0.5 % 1.2 % Basophils (%) (Auto) 0.4 % 0.3 % Neutrophils # (Auto) 4.86 K/uL 3.94 K/uL Lymphocytes # (Auto) 3.10 K/uL 4.21 K/uL Monocytes # (Auto) 1.16 K/uL 1.51 K/uL Eosinophils # (Auto) 0.05 K/uL 0.12 K/uL Basophils # (Auto) 0.04 K/uL 0.03 K/uL Recent Pertinent Medications Outpatient Anti-diabetic Regimen: * Tresiba 50-76 units HS * Novolog TIDM 20/30/50 units * A1c = 7.3 % 12/18/16 The patient is currently receiving: * Basal insulin: Lantus 40 units HS * Correctional Insulin: Novolog Correction per scale ACHS Goal Range: Low 110 mg/dL - High 140 mg/dL Correction Factor: 15 mg/dL/unit * Prandial insulin: Per carb ratio of 1 unit per 5 grams CHO consumed Risk Factors for Insulin Resistance: * IVF * Diet Assessment & Plan ASSESSMENT: * 51 yo diabetic M admitted with acute hypokalemia * Most recent A1c indicative of adequate outpatient glycemic control * Pt takes ~150-176 units of insulin per day at home * Overnight pharmacist initiated basal/bolus regimen for BSGs in the low-mid 200 's * Fasting BSG this AM = 156 mg/dL * Plan will be to likely increase Lantus tonight more towards home regimen and change CF/CR based on BSG trend * ADA & AACE recommend a goal blood sugar range 140-180 mg/dl for the majority of critically ill & non-critically ill patients. However, more stringent targets may be selected in individual cases. Tighten to 110-140 mg/dL based on outpatient control. PLAN FOR INPATIENT GLYCEMIC CONTROL: * Basal insulin with LANTUS 50 units SQ HS * Correctional Insulin with NOVOLOG per scale ACHS + 0200 check * Goal Range: Low 110 mg/dL - High 140 mg/dL * Correction Factor: 15 mg/dL/unit * Nutritional / Prandial insulin per carb ratio of 1 unit per 5 grams CHO consumed * If BSGs rise through the night, consider tightening to CF 10, CR 4 * Please note that the plan above was derived based on current level of insulin resistance and hospital stress. These recommendations are appropriate for inpatient admission only. Plan of care upon discharge will need to be reassessed to avoid potential outpatient hypo/hyperglycemia. Thank you.
--- NOTE | 2017-01-21 11:20 | CARDIOLOGY CONSULTATION REPORT ---
DATE OF CONSULTATION: 01/21/2017 DATE OF CONSULTATION: 01/21/2017 HISTORY OF PRESENT ILLNESS: Mr. Gomze is a 51-year-old white male with history of Hypertension, Dyslipidemia, poorly controlled Type 2 Diabetes Mellitus, Sleep Apnea, obesity, Chronic Leg Edema, Intimal Thickening of Bilateral Carotids, Nonobstructive CAD on Cardiac Catheterization 05/2015 (showing luminal irregularities only), and RV Systolic Dysfunction who presented acutely to our office on 01/14/2017 complaining of diffuse edema including his legs, fingers, and abdomen along with increased SOB and GRIFFITH over the preceding year or possibly longer. It seemed to be getting progressively worse as time went on. For example, he complained of dyspnea when walking form his living room to the kitchen and then back to the living room. He would feel short of breath for up to a minute or 2, and then recover his breathing. His also noticed that he was working harder to breathe when that occurred. The patient gained approximately 14 pounds in the preceding weeks before I saw him. He was not observing a low sodium diet and even admitted to "salting his pizza". Additionally, the patient had stopped taking spironolactone leading up to this due to gynecomastia. When I saw him he was taking between 120 mg to 240 mg of Lasix each day with a variable diuretic response. He appeared to be volume overloaded, had diffuse edema, JVP was above the clavicles bilaterally, and he had +1 pitting edema to the level of the knee bilaterally. His lungs were clear. At that point he was advised to take Lasix 120 mg daily, add Metolazone 5 mg daily 1 hour before morning Lasix dose, and to take KCl 20 mEq b.i.d. follow-up blood work was scheduled for 1 week later, and an echocardiogram was also ordered. Over the ensuing week, the patient had a brisk diuretic response -- losing 14 pounds of fluid weight. He still had exertional dyspnea, but his edema was significantly better. Unfortunately, the patient was noted to have a marked hypokalemia as of yesterday, with a serum potassium level of 2.0 mmol/L. He was referred for admission. He patient has been stable in the ICU. His rhythm has been predominantly normal sinus rhythm to sinus bradycardia. He has not had any dysrhythmias. His current serum potassium level is up to 2.4, so we still have a ways to go with that. Creatinine has improved from 1.40 overnight to 1.10 mg/dL. The patient offers no other complaints. He denies any chest pain, heaviness, tightness, or pressure. He denies any orthopnea or PND. No palpitations, tachypalpitations, syncope or near syncope. MEDICATIONS: 1. Protonix 40 mg b.i.d. 2. KCl 10 mEq b.i.d. 3. Lantus 40 units subcutaneous injection at bedtime. 4. NovoLog sliding scale insulin. 5. Heparin 5000 units subcutaneous injection q. 12 hours. 6. Lipitor 40 mg daily. 7. Lorazepam 0.5 mg t.i.d. 8. Lopressor 50 mcg b.i.d. 9. Morphine sulfate 15 mg p.o. b.i.d. 10. Percocet 5/325 1 tablet p.o. t.i.d. 11. Paxil 20 mg daily. 12. Desyrel 50 mg at bedtime. 13. Mag Ox 400 mg q.p.m. 14. Ranitidine 300 mg b.i.d. 15. Tylenol p.r.n. 16. Milk of Magnesia p.r.n. 17. Maalox Max p.r.n. 18. Ambien 5 mg at bedtime p.r.n. for sleep. 19. Zofran p.r.n. 20. MiraLax p.r.n. 21. Sublingual nitroglycerin p.r.n. 22. Phenergan 25 mg p.o. q. 8 hours p.r.n. for nausea. ALLERGIES: 1. AMOXICILLIN. 2. CLAVULANIC ACID. 3. CODEINE. 4. IODINATED CONTRAST MEDIA. 5. IODINE. 6. MEPERIDINE. 7. METFORMIN. 8. SPIRONOLACTONE CAUSED GYNECOMASTIA. PAST MEDICAL HISTORY: 1. Anxiety. 2. Mild CAD on cardiac cauterization May 2015 (luminal irregularities only). 3. History of biliary dyskinesia. 4. Obesity. 5. Carotid artery intimal thickening. 6. Stage 3 chronic kidney disease. 7. Chronic reflux esophagitis. 8. Chronic sinusitis. 9. Poorly controlled type 2 diabetes mellitus. 10. Diabetic nephropathy and neuropathy. 11. Dysesthesia. 12. Dyslipidemia. 13. Edema. 14. BPH. 15. History of erectile dysfunction. 16. Esophageal dysmotility. 17. Fibromyalgia. 18. Prior history of tobacco use. 19. Hypertension. 20. History of hyperventilation. 21. Lumbar radiculopathy. 22. Hyperuricemia. 23. Psoriasis. 24. Obstructive sleep apnea on CPAP. 25. History of RV dilatation and systolic dysfunction. 26. Status post appendectomy, colonoscopy, elbow surgery, hernia repair, neck surgery, and shoulder surgery. 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 He is a former smoker. He is physically disabled, no longer working. He does admit to drinking socially. FAMILY HISTORY: Significant for heart disease and diabetes mellitus in his father, cancer in his mother. Family history of hypertension. PHYSICAL EXAMINATION: VITAL SIGNS: Temperature 36.4?C, pulse 62 and regular, respiration rate is 14 unlabored, blood pressure 125/80, SPO2 is 91% on room air. I&O +798 mL total. Body weight 118.4 kg (260.48 pounds, down 14 pounds from 01/14/2017). GENERAL: The patient is in no acute distress. HEAD, EYES, EARS, NOSE, AND THROAT: Head is atraumatic, normocephalic. EOM intact. Sclera anicteric. Faces symmetric. No perioral cyanosis. Mucous membranes moist. NECK: Without adenopathy or JVD. Jugular venous pressure is just above the clavicle lying in a 45 degree angle. Carotid upstrokes are +2 bilaterally without bruits. CHEST AND LUNGS: Are with slightly harsh breath sounds in the left base, otherwise clear. No wheezes, rales, or crackles. CARDIOVASCULAR SYSTEM: S1 and S2 are regular without murmur, gallop, or rub. PMI is nondisplaced. No lifts, heaves, or thrills. No abdominal, aortic or renal bruits. ABDOMINAL EXAMINATION: Bowel sounds present. No masses, organomegaly, or tenderness. EXTREMITIES: Are without edema. Intact posterior tibial and radial pulses bilaterally. NEUROLOGIC EXAMINATION: The patient is awake, alert and interactive. Answers questions appropriately. Speech is clear. Normal movement in all 4 extremities. Gait pattern not assessed. Telemetry monitoring reveals normal sinus rhythm to sinus bradycardia. EKG on admission shows normal sinus rhythm at the rate of 70 beats per minute with left axis deviation, nonspecific ST T-wave abnormality, QT prolonged. Corrected QT interval is 594 milliseconds. Probable left anterior fascicular block. LABORATORY DATA: White blood cell count is 9.83. Hemoglobin 15.6 g/dL, hematocrit 42.4%, and platelet count 262,000. Sodium is 137 mmol/L, potassium 2.4 mmol/L, BUN 20 mg/dL, creatinine 1.10 mg/dL. Blood sugar is 156 mg/dL. Magnesium level is normal at 2.4 mg/dL. Total CK is 254 units per liter. Troponin I is normal at 0.016 mg/mL on admission. TSH normal at 1.540 uIU/mL. ASSESSMENT: 1. Marked hypokalemia. 2. Recent episode of hypervolemia, likely secondary to RV Systolic Dysfunction. 3. Sleep apnea. 4. Noncompliant with low sodium diet. 5. Chronic kidney disease. 6. No angina pectoris or anginal equivalent symptoms. 7. Volume status appears to be euvolemic to slightly hypervolemic today. 8. No evidence of dysrhythmia. 9. Long QT. PLAN: 1. The patient is doing reasonably well. Fortunately his rhythm has remained stable despite prolonged QT and hypokalemia. 2. Continue supplemental potassium chloride. Increase oral supplement upon discharge. 3. Continue to closely monitor daily laboratories. 4. Continue Lopressor 50 mg b.i.d. 5. Continue Insulin for treatment of diabetes mellitus. 6. Continue Protonix for GI protection. 7. Continue long-term Lipitor 40 mg daily. 8. The patient will likely need to be on a diuretic upon discharge. Potentially restart on Lasix +/- Amiloride. 9. Recommend remaining off of metolazone for the time being. 10. The patient is stable from a cardiac standpoint for transfer to telemetry unit. CARDIOLOGY ATTENDING ADDENDUM (Dr. Talbert): Patient seen, interviewed, and examined. Agree with above assessment and recommendations by Theo Venegas PA-C. No evidence of dysrhythmias or myocardial ischemia. Upon discharge, will work closely with the patient to establish an outpatient diuretic regimen which will achieve euvolemia without electrolyte depletion. [facility]
[2017-01-21 12:00] VITALS: BP 123/80; PULSE 63; TEMP 36.6; O2SAT 90
[2017-01-21 14:02] LABS: URINE APPEARANCE CLEAR (CLEAR); URINE BILIRUBIN NEG (NEG); URINE COLOR YELLOW; URINE NITRITE NEG (NEG); URINE PH 7.5 (4.5-7.5); URINE SPECIFIC GRAVITY 1.015 (1.000-1.030); UROBILINOGEN NEG (NEG)
[2017-01-21 14:08] LABS: MANUAL MICROSCOPIC REQUIRED? NO; REVIEW REQ? NO
[2017-01-21 14:30] LABS: BLOOD UREA NITROGEN 17 mg/dl (7-18); BUN/CREATININE RATIO 13.8 (10-20); CALCIUM 9.5 mg/dl (8.5-10.1); CARBON DIOXIDE 37 mmol/L (21-32); CHLORIDE 94 mmol/L (98-107); GLUCOSE 213 mg/dl (70-99); SODIUM 135 mmol/L (136-145)
[2017-01-21 15:02] VITALS: Ht 182.9 cm; Wt 117.6 kg
[2017-01-21 16:00] VITALS: BP 121/86; PULSE 58; TEMP 36.6; O2SAT 93
--- NOTE | 2017-01-21 16:14 | Progress Note ---
Subjective Date of Service: Jan 21, 2017. Subjective Pt evaluation today including: conversation w/ patient Pt is feeling "wiped out". States he has had several bowel movements and his abd is softer. No abd pain. Tolerating PO. No chest pain or SOB. Pt denies fever, n/v, LE pain or swelling. Problem List Medical Problems: (1) Abnormal EKG Status: Acute (2) Diab Gabrielle Wo Compl, Type Ii Or Unspec Type, Not Uncntrld Status: Chronic (3) Esophageal Reflux Status: Chronic (4) Hyperlipidemia Nec/Nos Status: Chronic (5) Hypertension Nos Status: Chronic (6) Hypokalemia Status: Acute (7) Hyponatremia Status: Acute (8) Neuropathy Status: Chronic (9) Weakness Status: Acute Review of Systems All Other Systems: Reviewed and Negative Objective Vital Signs Date Time Temp Pulse Resp B/P (MAP) Pulse Ox O2 Delivery O2 Flow Rate FiO2 01/21/17 12:00 36.6 63 18 123/80 (94) 90 Room Air 01/21/17 12:00 Room Air 01/21/17 08:00 Room Air 01/21/17 07:46 36.4 62 18 125/80 (95) 91 Room Air 01/21/17 04:00 Room Air 01/21/17 04:00 36.5 58 18 125/77 (93) 95 Nasal Cannula 2.0 01/20/17 23:59 Room Air 01/20/17 23:59 37.0 73 16 150/77 (101) 94 Nasal Cannula 2.0 01/20/17 21:08 37.4 68 15 145/69 92 Room Air 01/20/17 20:19 36.6 72 20 139/87 95 01/20/17 20:19 71 18 111/69 98 Room Air 01/20/17 20:01 139/87 01/20/17 19:59 136/86 01/20/17 19:55 72 20 01/20/17 19:48 111/69 01/20/17 19:31 127/75 01/20/17 19:25 69 18 95 01/20/17 19:02 121/77 01/20/17 18:55 69 15 91 01/20/17 18:31 124/78 01/20/17 18:25 67 10 91 01/20/17 18:20 74 01/20/17 18:13 69 18 124/70 94 Room Air 01/20/17 18:11 124/70 01/20/17 17:30 36.6 70 18 156/88 93 Room Air Physical Exam General Appearance: WD/WN, no apparent distress Eyes: normal inspection, EOMI Respiratory/Chest: normal breath sounds, no respiratory distress Cardiovascular: regular rate, rhythm, no edema Abdomen: non tender, soft Extremities: non-tender, no pedal edema Neurologic/Psychiatric: alert, oriented x 3 Skin: normal color, warm/dry Laboratory Results Last 24 Hours Test 01/20/17 17:55 01/20/17 20:54 01/20/17 22:28 01/20/17 23:09 White Blood Count 9.23 K/uL Red Blood Count 5.17 M/uL Hemoglobin 16.5 g/dL Hematocrit 45.0 % Mean Corpuscular Volume 87.0 fL Mean Corpuscular Hemoglobin 31.9 pg Mean Corpuscular Hemoglobin Concent 36.7 g/dl Platelet Count 302 K/uL Mean Platelet Volume 10.2 fL Neutrophils (%) (Auto) 52.7 % Lymphocytes (%) (Auto) 33.6 % Monocytes (%) (Auto) 12.6 % Eosinophils (%) (Auto) 0.5 % Basophils (%) (Auto) 0.4 % Neutrophils # (Auto) 4.86 K/uL Lymphocytes # (Auto) 3.10 K/uL Monocytes # (Auto) 1.16 K/uL Eosinophils # (Auto) 0.05 K/uL Basophils # (Auto) 0.04 K/uL RDW Standard Deviation 38.5 fL RDW Coefficient of Variation 12.0 % Immature Granulocyte % (Auto) 0.2 % Immature Granulocyte # (Auto) 0.02 K/uL Prothrombin Time 10.9 SECONDS Prothromb Time International Ratio 1.0 Activated Partial Thromboplast Time 26.7 SECONDS Partial Thromboplastin Ratio 1.0 Sodium Level 129 mmol/L 133 mmol/L Potassium Level 2.0 mmol/L 2.3 mmol/L Chloride Level 83 mmol/L 86 mmol/L Carbon Dioxide Level 38 mmol/L 39 mmol/L Anion Gap 8.0 mmol/L 8.0 mmol/L Blood Urea Nitrogen 27 mg/dl 24 mg/dl Creatinine 1.40 mg/dl 1.40 mg/dl Est Creatinine Clear Calc Drug Dose 81.1 ml/min 80.9 ml/min Estimated GFR () 66.0 66.0 Estimated GFR (Non- 57.0 57.0 BUN/Creatinine Ratio 19.4 17.5 Random Glucose 242 mg/dl 194 mg/dl Osmolality 287 mOsm/kg Calcium Level 9.5 mg/dl 8.9 mg/dl Magnesium Level 2.1 mg/dl Total Bilirubin 0.9 mg/dl Direct Bilirubin 0.2 mg/dl Aspartate Amino Transf (AST/SGOT) 31 U/L Alanine Aminotransferase (ALT/SGPT) 25 U/L Alkaline Phosphatase 94 U/L Troponin I 0.016 ng/ml Pro-B-Type Natriuretic Peptide 143 pg/ml Total Protein 8.3 gm/dl Albumin 4.1 gm/dl Lipase 104 U/L Hepatitis C Antibody Screen NEG Bedside Glucose 217 mg/dl 239 mg/dl Total Creatine Kinase 254 U/L Thyroid Stimulating Hormone (TSH) 1.540 uIu/ml Test 01/21/17 05:13 01/21/17 11:13 01/21/17 12:45 01/21/17 13:50 White Blood Count 9.83 K/uL Red Blood Count 4.82 M/uL Hemoglobin 15.6 g/dL Hematocrit 42.4 % Mean Corpuscular Volume 88.0 fL Mean Corpuscular Hemoglobin 32.4 pg Mean Corpuscular Hemoglobin Concent 36.8 g/dl Platelet Count 262 K/uL Mean Platelet Volume 10.3 fL Neutrophils (%) (Auto) 40.1 % Lymphocytes (%) (Auto) 42.8 % Monocytes (%) (Auto) 15.4 % Eosinophils (%) (Auto) 1.2 % Basophils (%) (Auto) 0.3 % Neutrophils # (Auto) 3.94 K/uL Lymphocytes # (Auto) 4.21 K/uL Monocytes # (Auto) 1.51 K/uL Eosinophils # (Auto) 0.12 K/uL Basophils # (Auto) 0.03 K/uL RDW Standard Deviation 39.9 fL RDW Coefficient of Variation 12.4 % Immature Granulocyte % (Auto) 0.2 % Immature Granulocyte # (Auto) 0.02 K/uL Sodium Level 137 mmol/L 135 mmol/L Potassium Level 2.4 mmol/L mmol/L Chloride Level 89 mmol/L 94 mmol/L Carbon Dioxide Level 39 mmol/L 37 mmol/L Anion Gap 8.0 mmol/L 4.0 mmol/L Blood Urea Nitrogen 20 mg/dl 17 mg/dl Creatinine 1.10 mg/dl 1.20 mg/dl Est Creatinine Clear Calc Drug Dose 103.0 ml/min 94.4 ml/min Estimated GFR () 88.4 79.5 Estimated GFR (Non- 76.2 68.6 BUN/Creatinine Ratio 18.5 13.8 Random Glucose 156 mg/dl 213 mg/dl Calcium Level 8.9 mg/dl 9.5 mg/dl Magnesium Level 2.4 mg/dl Bedside Glucose 171 mg/dl Urine Color YELLOW Urine Appearance CLEAR Urine pH 7.5 Urine Specific [place] 1.015 Urine Protein NEG Urine Glucose (UA) NEG Urine Ketones NEG Urine Occult Blood NEG Urine Nitrite NEG Urine Bilirubin NEG Urine Urobilinogen NEG Urine Leukocyte Esterase NEG Urine Osmolality 427 mOms/kg Urine Random Sodium 48 mEq/L Test 01/21/17 15:30 Assessment and Plan 51 y/o M who was admitted on 01/20 with severe hypokalemia Severe hypokalemia: likely related to high level lasix use Pt was on PO replacement as outpt, but likely not enough Improved QT prolongation noted on admission, now resolved with K improvement Trop neg Ongoing replacement, moving slowly. Does not tolerate IV replacement Recheck later tonight and in AM Cardiology recs noted, continue to hold metolazone and increase K on d/c Bradycardia: likely related to electrolyte issues, monitor Abdominal pain: likely related to constipation Resolved with multiple bowel movements HypoNa: resolved, monitor DM: insulin pump A1c / on 12/18/16 HTN/CHF: stable, monitor with changes in diuretics Pain/anxiety: pt has been very groggy and difficult to arouse at times Will hold ativan, pain meds, tramadol until more alert
--- NOTE | 2017-01-21 17:19 | Nephrology Consultation ---
Nephrology Consultation Date & Providers Date of Consultation: Jan 21, 2017. Primary Care Provider: Dioni Elkins M.D. Referring Provider: Reason for Consultation Hypokalemia, CKD History of Present Illness Mr. Gomez is a 51 year old white male who is seen at the request of Dr. Camarillo for evaluation of hypokalemia and CKD. Medical records in the hospital EMR were reviewed and are summarized as follows: Mr. Gomez has stage III CKD ( moderate impairment). His baseline creatinine has been 1.4 w/ EGFR 57 cc/min. His organ tuner is Dr. Rob Morales. Mr. Gomez suffers from obesity, MARY JANE, RV systolic dysfunction, BPH, fatty liver disease, AODM and chronic lower extremity edema. He has been poorly compliant w/ a low salt diet. As an outpatient he has required high dose loop diuretic therapy and Aldactone for treatment of his LE edema. Recently he stopped the Aldactone due to gynecomastia. He rapidly gained 14 lbs fluid weight. He was then started on a combination of Furosemide 120 mg and Metolazone 5 mg each morning. He had a rapid diuresis and became progressively weak. Laboratory studies were obtained which revealed hypochloremic metabolic alkalosis c/w diuretic therapy and profound hypokalemia. He was subsequently admitted to the hospital for correction of his electrolyte imbalance. Past Medical/Surgical History Medical: # CKD w/ baseline creatinine 1.4 # BMI 35 # MARY JANE # RV systolic dysfunction # BPH # Fatty liver disease # AODM # Chronic lower extremity edema # ASCVD Allergies Coded Allergies: Codeine (Verified Allergy, Intermediate, PRURITIS, HIVES, 01/20/17) CAN TOLERATE HYDROCODONE (ON AT HOME) ON MS CONTIN WELL Iodinated Diagnostic Agents (Verified Allergy, Unknown, HIVES, 01/20/17) Iodine (Verified Allergy, Unknown, HIVES, 01/20/17) Meperidine (Verified Allergy, Unknown, HIVES, 01/20/17) Spironolactone (Unverified Allergy, Unknown, GROWING BREASTS, 01/20/17) Metformin (Verified Adverse Reaction, Intermediate, severe diarrhea, cramping, 01/20/17) Amoxicillin (Verified Adverse Reaction, Mild, GI SYMPTOMS, 01/20/17) Clavulanic Acid (Verified Adverse Reaction, Mild, GI SYMPTOMS, 01/20/17) Inpatient Medications Current Inpatient Medications Medications (Trade) Dose Ordered Sig/Mamadou Route Start Time Stop Time Status Last Admin Dose Admin Heparin Sodium (Porcine) (Heparin Sq 5000 Unit/0.5ml) 5,000 unit Q12 SQ 01/20/17 21:00 02/19/17 20:59 01/21/17 07:31 5,000 UNIT Acetaminophen (Tylenol Tab) 650 mg Q4H PRN PO 01/20/17 19:00 02/19/17 18:59 Al Hydrox/Mg Hydrox/Simethicone (Maalox Max Susp) 15 ml Q4H PRN PO 01/20/17 19:00 02/19/17 18:59 Magnesium Hydroxide (Milk Of Magnesia Susp) 30 ml Q12H PRN PO 01/20/17 19:00 02/19/17 18:59 Zolpidem Tartrate (Ambien Tab) 5 mg HSZ PRN PO 01/20/17 19:00 02/19/17 18:59 Ondansetron HCl (Zofran Inj) 4 mg Q6H PRN IV 01/20/17 19:00 02/19/17 18:59 01/20/17 21:53 4 MG Polyethylene (Miralax Powder Packet) 17 gm DAILY PRN PO 01/20/17 19:00 02/19/17 18:59 Albuterol (Ventolin Hfa Inhaler) 2 puffs Q6H PRN INH 01/20/17 19:00 02/19/17 18:59 Atorvastatin Calcium (Lipitor Tab) 40 mg HS PO 01/20/17 21:00 02/19/17 20:59 01/20/17 21:35 40 MG Lorazepam (Ativan Tab) 0.5 mg TID PO 01/20/17 21:00 02/19/17 20:59 01/21/17 07:30 0.5 MG Metoprolol Tartrate (Lopressor Tab) 50 mg BID PO 01/20/17 21:00 02/19/17 20:59 01/21/17 07:28 50 MG Morphine Sulfate (Oramorph Sr Tab) 15 mg BID PO 01/20/17 21:00 02/03/17 20:59 01/21/17 07:31 15 MG Nitroglycerin (Nitrostat Tab) 0.4 mg PRN PRN [place] 01/20/17 19:00 02/19/17 18:59 Oxycodone/ Acetaminophen (Percocet 5-325mg Tab) 1 tab TID PO 01/20/17 21:00 02/03/17 20:59 01/21/17 07:31 1 TAB Paroxetine HCl (pAXil TAB) 20 mg QPM PO 01/20/17 21:00 02/19/17 20:59 01/20/17 21:34 20 MG Promethazine HCl (Phenergan Tab) 25 mg Q8H PRN PO 01/20/17 19:00 02/19/17 18:59 Trazodone HCl (Desyrel Tab) 50 mg HS PO 01/20/17 21:00 02/19/17 20:59 01/20/17 21:34 50 MG Pantoprazole Sodium (Protonix Tab) 40 mg BIDM PO 01/21/17 07:15 02/20/17 07:59 01/21/17 07:27 40 MG Magnesium Oxide (Mag-Ox Tab) 400 mg QPM PO 01/20/17 21:00 02/19/17 20:59 01/20/17 21:34 400 MG Ranitidine HCl (zANTac TAB) 300 mg BID PO 01/20/17 21:00 02/19/17 20:59 01/21/17 07:27 300 MG Miscellaneous Information (Consult Glycemic Management Pharmacy) 1 ea UD PRN N/A 01/20/17 21:30 02/19/17 21:29 Insulin Aspart (novoLOG ASPART) SLIDING SCALE ACHS SC 01/20/17 22:30 02/19/17 22:29 01/21/17 11:28 18 UNITS Glucose (Glucose 40% Gel) 15-30 GRAMS 15 GRAMS... UD PRN PO 01/20/17 22:15 02/19/17 22:14 Glucose (Glucose Chew Tab) 4-8 Tablets 4 Tabl... UD PRN PO 01/20/17 22:15 02/19/17 22:14 Dextrose (Dextrose 50% 50ML Syringe) 25-50ML OF 50% DW IV FOR... UD PRN IV 01/20/17 22:15 02/19/17 22:14 Glucagon (Glucagon Inj) 1 mg UD PRN SQ 01/20/17 22:15 02/19/17 22:14 Insulin Glargine (Lantus Solostar Pen) 50 units HS MI 01/21/17 21:00 02/20/17 20:59 Insulin Aspart (novoLOG ASPART) SLIDING SCALE 0200 MI 01/22/17 02:00 02/21/17 01:59 Family History Cancer Diabetes mellitus FH: heart disease FHx: gallbladder disease FHx: lung disease Hypertension Kidney disease Kidney stones Negative for CKD / ESRD Social History Smoking Status: Former Smoker Drug Use: none Marital Status: Housing Status: lives with family Occupation: employed . Medically disabled. Former smoker. Review of Systems Constitutional: No fever Respiratory: No cough Cardiovascular: No chest pain Abdomen: No pain A complete review of systems was performed. Pertinent positives are noted above. All other systems are negative. Physical Exam Date Time Temp Pulse Resp B/P (MAP) Pulse Ox O2 Delivery O2 Flow Rate FiO2 01/21/17 12:00 36.6 63 18 123/80 (94) 90 Room Air 01/21/17 12:00 Room Air 01/21/17 08:00 Room Air 01/21/17 07:46 36.4 62 18 125/80 (95) 91 Room Air 01/21/17 04:00 Room Air 01/21/17 04:00 36.5 58 18 125/77 (93) 95 Nasal Cannula 2.0 01/20/17 23:59 Room Air 01/20/17 23:59 37.0 73 16 150/77 (101) 94 Nasal Cannula 2.0 01/20/17 21:08 37.4 68 15 145/69 92 Room Air 01/20/17 20:19 36.6 72 20 139/87 95 01/20/17 20:19 71 18 111/69 98 Room Air 01/20/17 20:01 139/87 01/20/17 19:59 136/86 01/20/17 19:55 72 20 01/20/17 19:48 111/69 01/20/17 19:31 127/75 01/20/17 19:25 69 18 95 01/20/17 19:02 121/77 01/20/17 18:55 69 15 91 01/20/17 18:31 124/78 01/20/17 18:25 67 10 91 01/20/17 18:20 74 01/20/17 18:13 69 18 124/70 94 Room Air 01/20/17 18:11 124/70 01/20/17 17:30 36.6 70 18 156/88 93 Room Air General Appearance: no apparent distress Head: normocephalic, atraumatic Eyes: PERRL, EOMI ENT: + pertinent finding (dry mucous membranes) Neck: no adenopathy, no JVD Respiratory/Chest: lungs clear, no respiratory distress Cardiovascular: regular rate, rhythm Abdomen/GI: normal bowel sounds, non tender, soft Extremities/Musculoskelatal: no calf tenderness, no pedal edema, + pertinent finding (poor skin turgor) Neurologic/Psych: alert, oriented x 3 Laboratory Results Last 24 Hours Test 01/20/17 17:55 01/20/17 20:54 01/20/17 22:28 01/20/17 23:09 White Blood Count 9.23 K/uL Red Blood Count 5.17 M/uL Hemoglobin 16.5 g/dL Hematocrit 45.0 % Mean Corpuscular Volume 87.0 fL Mean Corpuscular Hemoglobin 31.9 pg Mean Corpuscular Hemoglobin Concent 36.7 g/dl Platelet Count 302 K/uL Mean Platelet Volume 10.2 fL Neutrophils (%) (Auto) 52.7 % Lymphocytes (%) (Auto) 33.6 % Monocytes (%) (Auto) 12.6 % Eosinophils (%) (Auto) 0.5 % Basophils (%) (Auto) 0.4 % Neutrophils # (Auto) 4.86 K/uL Lymphocytes # (Auto) 3.10 K/uL Monocytes # (Auto) 1.16 K/uL Eosinophils # (Auto) 0.05 K/uL Basophils # (Auto) 0.04 K/uL RDW Standard Deviation 38.5 fL RDW Coefficient of Variation 12.0 % Immature Granulocyte % (Auto) 0.2 % Immature Granulocyte # (Auto) 0.02 K/uL Prothrombin Time 10.9 SECONDS Prothromb Time International Ratio 1.0 Activated Partial Thromboplast Time 26.7 SECONDS Partial Thromboplastin Ratio 1.0 Sodium Level 129 mmol/L 133 mmol/L Potassium Level 2.0 mmol/L 2.3 mmol/L Chloride Level 83 mmol/L 86 mmol/L Carbon Dioxide Level 38 mmol/L 39 mmol/L Anion Gap 8.0 mmol/L 8.0 mmol/L Blood Urea Nitrogen 27 mg/dl 24 mg/dl Creatinine 1.40 mg/dl 1.40 mg/dl Est Creatinine Clear Calc Drug Dose 81.1 ml/min 80.9 ml/min Estimated GFR () 66.0 66.0 Estimated GFR (Non- 57.0 57.0 BUN/Creatinine Ratio 19.4 17.5 Random Glucose 242 mg/dl 194 mg/dl Osmolality 287 mOsm/kg Calcium Level 9.5 mg/dl 8.9 mg/dl Magnesium Level 2.1 mg/dl Total Bilirubin 0.9 mg/dl Direct Bilirubin 0.2 mg/dl Aspartate Amino Transf (AST/SGOT) 31 U/L Alanine Aminotransferase (ALT/SGPT) 25 U/L Alkaline Phosphatase 94 U/L Troponin I 0.016 ng/ml Pro-B-Type Natriuretic Peptide 143 pg/ml Total Protein 8.3 gm/dl Albumin 4.1 gm/dl Lipase 104 U/L Hepatitis C Antibody Screen NEG Bedside Glucose 217 mg/dl 239 mg/dl Total Creatine Kinase 254 U/L Thyroid Stimulating Hormone (TSH) 1.540 uIu/ml Test 01/21/17 05:13 01/21/17 11:13 01/21/17 12:45 01/21/17 13:50 White Blood Count 9.83 K/uL Red Blood Count 4.82 M/uL Hemoglobin 15.6 g/dL Hematocrit 42.4 % Mean Corpuscular Volume 88.0 fL Mean Corpuscular Hemoglobin 32.4 pg Mean Corpuscular Hemoglobin Concent 36.8 g/dl Platelet Count 262 K/uL Mean Platelet Volume 10.3 fL Neutrophils (%) (Auto) 40.1 % Lymphocytes (%) (Auto) 42.8 % Monocytes (%) (Auto) 15.4 % Eosinophils (%) (Auto) 1.2 % Basophils (%) (Auto) 0.3 % Neutrophils # (Auto) 3.94 K/uL Lymphocytes # (Auto) 4.21 K/uL Monocytes # (Auto) 1.51 K/uL Eosinophils # (Auto) 0.12 K/uL Basophils # (Auto) 0.03 K/uL RDW Standard Deviation 39.9 fL RDW Coefficient of Variation 12.4 % Immature Granulocyte % (Auto) 0.2 % Immature Granulocyte # (Auto) 0.02 K/uL Sodium Level 137 mmol/L 135 mmol/L Potassium Level 2.4 mmol/L mmol/L Chloride Level 89 mmol/L 94 mmol/L Carbon Dioxide Level 39 mmol/L 37 mmol/L Anion Gap 8.0 mmol/L 4.0 mmol/L Blood Urea Nitrogen 20 mg/dl 17 mg/dl Creatinine 1.10 mg/dl 1.20 mg/dl Est Creatinine Clear Calc Drug Dose 103.0 ml/min 94.4 ml/min Estimated GFR () 88.4 79.5 Estimated GFR (Non- 76.2 68.6 BUN/Creatinine Ratio 18.5 13.8 Random Glucose 156 mg/dl 213 mg/dl Calcium Level 8.9 mg/dl 9.5 mg/dl Magnesium Level 2.4 mg/dl Bedside Glucose 171 mg/dl Urine Color YELLOW Urine Appearance CLEAR Urine pH 7.5 Urine Specific [place] 1.015 Urine Protein NEG Urine Glucose (UA) NEG Urine Ketones NEG Urine Occult Blood NEG Urine Nitrite NEG Urine Bilirubin NEG Urine Urobilinogen NEG Urine Leukocyte Esterase NEG Urine Osmolality 427 mOms/kg Urine Random Sodium 48 mEq/L Test 01/21/17 15:30 Potassium Level 2.5 mmol/L Impression (1) Hypokalemia (2) Chronic systolic dysfunction of right ventricle (3) Chronic kidney disease (4) Weakness Recommendations HYPOKALEMIA: -- Serum Mg is within acceptable limits -- Patient is intolerant of IV KCl due to "burning" -- Potassium deficit is on the order of 300 - 400 mEq -- Patient has already been given KCl 20 mEq this am. Will provide additional 80 mEq and obtain a follow up potassium level RV DYSFUNCTION -- Patient is clinically volume contracted at this time -- Hold Metolazone & Furosemide -- When diuretic therapy is again indicated would recommend Torsemide for improved bioavailability and longer half life along with Amiloride to limit urinary potassium losses CHRONIC KIDNEY DISEASE: -- Baseline creatinine has been 1.4 w/ EGFR 57 cc/min. Kidney function is stable at this time.
[2017-01-21 20:03] VITALS: BP 116/77; PULSE 90; TEMP 36.5; O2SAT 92
[2017-01-21] MEDS: ATORVASTATIN 40 MG TAB PO SCH (20:13)
[2017-01-21] MEDS: MAGNESIUM OXIDE 400 MG TAB PO SCH (20:14)
[2017-01-21] MEDS: PAROXETINE 20 MG TAB PO SCH (20:14)
[2017-01-21] MEDS ORDERED: INSULIN GLARGINE SOLOSTAR 100 UNITS/ML 3 ML PEN SC SCH (21:00)
[2017-01-21 22:00] LABS: BUN/CREATININE RATIO 14.1 (10-20); CALCIUM 9.6 mg/dl (8.5-10.1); CREATININE 1.2 mg/dl (0.60-1.40); POTASSIUM 3.1 mmol/L (3.5-5.1)
[2017-01-22] VITALS (10 sets, daily range): BP systolic 115–125; BP diastolic 65–86; PULSE 57–64; TEMP 36.5–36.8; O2SAT 92–97
[2017-01-22] MEDS ORDERED: INSULIN ASPART 100 UNITS/ML 3 ML PEN SC SCH (02:00)
[2017-01-22 07:24] LABS: CALCIUM 9.5 mg/dl (8.5-10.1); CREATININE 0.82 mg/dl (0.60-1.40); MAGNESIUM 2.1 mg/dl (1.8-2.4); POTASSIUM 2.8 mmol/L (3.5-5.1)
[2017-01-22] MEDS ORDERED: POTASSIUM CHLORIDE 20 MEQ TABCR PO STA (09:13)
[2017-01-22] MEDS: RANITIDINE HCL 150 MG TAB PO SCH (09:16)
[2017-01-22] MEDS: METOPROLOL TARTRATE 50 MG TAB PO SCH (09:16)
[2017-01-22] MEDS: PANTOprazole SOD 40 MG TAB PO SCH ×2 (09:16→16:29)
[2017-01-22] MEDS: MoRPHine SULFATE CR 15 MG TAB (MS CONTIN) PO SCH (09:20)
[2017-01-22] MEDS: HEPARIN SOD 5000 UNIT/0.5 ML CARP SQ SCH (09:28)
[2017-01-22] MEDS: INSULIN ASPART 100 UNITS/ML 3 ML PEN SC SCH ×3 (09:28→17:16)
[2017-01-22] MEDS ORDERED: NSS + 20MEQ KCL 1000ML 1,000 ML IV SCH (10:30)
--- NOTE | 2017-01-22 10:39 | Nephrology Progress Note ---
Nephrology Progress Note Date of Service Jan 22, 2017. Chief Complaint Hypokalemia, CKD Subjective Mr. Gomez was seen & examined in his hospital room this morning. He complains of thirst and persistent weakness. He was intolerant of IV KCl due to burning at the IV site but has tolerated oral KCl without GI upset. Review of Systems Constitutional: No fever Cardiovascular: No chest pain Respiratory: No dyspnea at rest Abdomen: No pain, No nausea, No vomiting Extremities: No leg edema A complete review of systems was performed. Pertinent positives are noted above. All other systems are negative. Vital Signs Last 8 Hrs Date Time Temp Pulse Resp B/P (MAP) Pulse Ox O2 Delivery O2 Flow Rate FiO2 01/22/17 07:36 36.5 60 16 125/86 (99) 94 Room Air 01/22/17 04:47 36.6 57 20 120/78 (92) 97 2.0 01/22/17 04:00 92 Nasal Cannula 2.0 Last Recorded Weight Weight (Kilograms): 117.600 Physical Exam General Appearance: no apparent distress Head: normocephalic, atraumatic Eyes: PERRL, EOMI ENT: + pertinent finding (dry mucous membranes) Neck: no adenopathy Respiratory/Chest: lungs clear, no respiratory distress Cardiovascular: regular rate, rhythm, no murmur Abdomen/GI: normal bowel sounds, non tender, soft Extremities/Musculoskelatal: no pedal edema Neurologic/Psych: alert, oriented x 3 Family History Cancer Diabetes mellitus FH: heart disease FHx: gallbladder disease FHx: lung disease Hypertension Kidney disease Kidney stones Negative for CKD / ESRD Social History Smoking Status: Current every day smoker Drug Use: none Marital Status: Housing Status: lives with family Occupation: employed . Medically disabled. Former smoker. Laboratory Results Past 24 Hours 01/21/17 13:50 01/21/17 15:30 01/21/17 20:59 01/22/17 06:31 Test 01/21/17 11:13 01/21/17 12:45 01/21/17 13:50 01/21/17 16:14 Bedside Glucose 171 mg/dl (70-99) 176 mg/dl (70-99) Urine Color YELLOW Urine Appearance CLEAR (CLEAR) Urine pH 7.5 (4.5-7.5) Urine Specific [place] 1.015 (1.000-1.030) Urine Protein NEG (NEG) Urine Glucose (UA) NEG (NEG) Urine Ketones NEG (NEG) Urine Occult Blood NEG (NEG) Urine Nitrite NEG (NEG) Urine Bilirubin NEG (NEG) Urine Urobilinogen NEG (NEG) Urine Leukocyte Esterase NEG (NEG) Urine Osmolality 427 mOms/kg (500-800) Urine Random Sodium 48 mEq/L Anion Gap 4.0 mmol/L (3-11) Est Creatinine Clear Calc Drug Dose 94.4 ml/min Estimated GFR () 79.5 Estimated GFR (Non- 68.6 BUN/Creatinine Ratio 13.8 (10-20) Calcium Level 9.5 mg/dl (8.5-10.1) Test 01/21/17 19:52 01/21/17 20:59 01/22/17 06:31 01/22/17 07:49 Bedside Glucose 215 mg/dl (70-99) 140 mg/dl (70-99) Anion Gap 5.0 mmol/L (3-11) 6.0 mmol/L (3-11) Est Creatinine Clear Calc Drug Dose 94.4 ml/min 137.9 ml/min Estimated GFR () 79.5 117.0 Estimated GFR (Non- 68.6 101.0 BUN/Creatinine Ratio 14.1 (10-20) 17.0 (10-20) Calcium Level 9.6 mg/dl (8.5-10.1) 9.5 mg/dl (8.5-10.1) Magnesium Level 2.1 mg/dl (1.8-2.4) Allergies Coded Allergies: Codeine (Verified Allergy, Intermediate, PRURITIS, HIVES, 01/20/17) CAN TOLERATE HYDROCODONE (ON AT HOME) ON MS CONTIN WELL Iodinated Diagnostic Agents (Verified Allergy, Unknown, HIVES, 01/20/17) Iodine (Verified Allergy, Unknown, HIVES, 01/20/17) Meperidine (Verified Allergy, Unknown, HIVES, 01/20/17) Spironolactone (Unverified Allergy, Unknown, GROWING BREASTS, 01/20/17) Metformin (Verified Adverse Reaction, Intermediate, severe diarrhea, cramping, 01/20/17) Amoxicillin (Verified Adverse Reaction, Mild, GI SYMPTOMS, 01/20/17) Clavulanic Acid (Verified Adverse Reaction, Mild, GI SYMPTOMS, 01/20/17) Medications Current Inpatient Medications Medications (Trade) Dose Ordered Sig/Mamadou Route Start Time Stop Time Status Last Admin Dose Admin Heparin Sodium (Porcine) (Heparin Sq 5000 Unit/0.5ml) 5,000 unit Q12 SQ 01/20/17 21:00 02/19/17 20:59 01/22/17 09:28 5,000 UNIT Acetaminophen (Tylenol Tab) 650 mg Q4H PRN PO 01/20/17 19:00 02/19/17 18:59 Al Hydrox/Mg Hydrox/Simethicone (Maalox Max Susp) 15 ml Q4H PRN PO 01/20/17 19:00 02/19/17 18:59 Magnesium Hydroxide (Milk Of Magnesia Susp) 30 ml Q12H PRN PO 01/20/17 19:00 02/19/17 18:59 Zolpidem Tartrate (Ambien Tab) 5 mg HSZ PRN PO 01/20/17 19:00 02/19/17 18:59 Ondansetron HCl (Zofran Inj) 4 mg Q6H PRN IV 01/20/17 19:00 02/19/17 18:59 01/20/17 21:53 4 MG Polyethylene (Miralax Powder Packet) 17 gm DAILY PRN PO 01/20/17 19:00 02/19/17 18:59 Albuterol (Ventolin Hfa Inhaler) 2 puffs Q6H PRN INH 01/20/17 19:00 02/19/17 18:59 Atorvastatin Calcium (Lipitor Tab) 40 mg HS PO 01/20/17 21:00 02/19/17 20:59 01/21/17 20:13 40 MG Lorazepam (Ativan Tab) 0.5 mg TID PO 01/20/17 21:00 02/19/17 20:59 Future Hold 01/21/17 07:30 0.5 MG Metoprolol Tartrate (Lopressor Tab) 50 mg BID PO 01/20/17 21:00 02/19/17 20:59 01/22/17 09:16 50 MG Morphine Sulfate (Oramorph Sr Tab) 15 mg BID PO 01/20/17 21:00 02/03/17 20:59 01/22/17 09:20 15 MG Nitroglycerin (Nitrostat Tab) 0.4 mg PRN PRN UT 01/20/17 19:00 02/19/17 18:59 Oxycodone/ Acetaminophen (Percocet 5-325mg Tab) 1 tab TID PO 01/20/17 21:00 02/03/17 20:59 Future Hold 01/21/17 07:31 1 TAB Paroxetine HCl (pAXil TAB) 20 mg QPM PO 01/20/17 21:00 02/19/17 20:59 01/21/17 20:14 20 MG Promethazine HCl (Phenergan Tab) 25 mg Q8H PRN PO 01/20/17 19:00 02/19/17 18:59 Trazodone HCl (Desyrel Tab) 50 mg HS PO 01/20/17 21:00 02/19/17 20:59 Future Hold 01/20/17 21:34 50 MG Pantoprazole Sodium (Protonix Tab) 40 mg BIDM PO 01/21/17 07:15 02/20/17 07:59 01/22/17 09:16 40 MG Magnesium Oxide (Mag-Ox Tab) 400 mg QPM PO 01/20/17 21:00 02/19/17 20:59 01/21/17 20:14 400 MG Ranitidine HCl (zANTac TAB) 300 mg BID PO 01/20/17 21:00 02/19/17 20:59 01/22/17 09:16 300 MG Miscellaneous Information (Consult Glycemic Management Pharmacy) 1 ea UD PRN N/A 01/20/17 21:30 02/19/17 21:29 Insulin Aspart (novoLOG ASPART) SLIDING SCALE ACHS SC 01/20/17 22:30 02/19/17 22:29 01/22/17 09:28 13 UNITS Glucose (Glucose 40% Gel) 15-30 GRAMS 15 GRAMS... UD PRN PO 01/20/17 22:15 02/19/17 22:14 Glucose (Glucose Chew Tab) 4-8 Tablets 4 Tabl... UD PRN PO 01/20/17 22:15 02/19/17 22:14 Dextrose (Dextrose 50% 50ML Syringe) 25-50ML OF 50% DW IV FOR... UD PRN IV 01/20/17 22:15 10/12/17 22:14 Glucagon (Glucagon Inj) 1 mg UD PRN SQ 01/20/17 22:15 02/19/17 22:14 Insulin Glargine (Lantus Solostar Pen) 50 units HS SC 01/21/17 21:00 02/20/17 20:59 01/21/17 20:13 50 UNITS Insulin Aspart (novoLOG ASPART) SLIDING SCALE 0200 SC 01/22/17 02:00 02/21/17 01:59 Potassium Chloride (Klor-Con Tab) 40 meq ONE ONCE PO 01/22/17 12:00 01/22/17 12:01 Potassium Chloride/Sodium Chloride 1,000 ml @ 125 mls/hr Q8H IV 01/22/17 10:30 01/22/17 18:29 Impression (1) Hypokalemia (2) Chronic systolic dysfunction of right ventricle (3) Chronic kidney disease (4) Weakness Recommendations HYPOKALEMIA: -- Serum Mg is within acceptable limits -- Patient is intolerant of IV KCl due to "burning" -- Potassium deficit is on the order of 300 - 400 mEq -- Patient has already been given KCl 80 mEq po x 1 this am -- Patient appears clinically volume contracted and has a persistent hypochloremic metabolic alkalosis. Will provide 1 L 0.9 NS w/ 20 mEq KCL IV today -- Follow up serum K level has been ordered for ~ 1 pm today RV DYSFUNCTION -- Patient is clinically volume contracted at this time -- Hold Metolazone & Furosemide -- When diuretic therapy is again indicated would recommend Torsemide for improved bioavailability and longer half life along with Amiloride to limit urinary potassium losses CHRONIC KIDNEY DISEASE: -- Baseline creatinine has been 1.4 w/ EGFR 57 cc/min. Kidney function is stable at this time.
[2017-01-22] MEDS ORDERED: POTASSIUM CHLORIDE 20 MEQ TABCR PO ONE (12:00)
--- NOTE | 2017-01-22 13:40 | Cardiology Follow-Up ---
Cardiology Follow-Up Date of Service Jan 22, 2017. Cardiology Follow-Up SUBJECTIVE: 51-year-old man with HTN, DM, chronic leg edema, and CAD (luminal irregularities only at cath 2016) who was taking metolazone for weight gain/ edema/dyspnea and was admitted 2 days ago after being found to have potassium of 2.0. He had an uneventful night and feels well presently. His potassium is up to 2.8. Denies any dyspnea, chest pain, palpitations, presyncope, or syncope. PHYSICAL EXAMINATION: No distress. Vitals: BP 115/74 mm Hg, pulse 62 and regular, respirations 16 and unlabored. Skin: No unusual lesions or ecchymosis. HEENT: Unremarkable. Neck: Jugular venous pulse 1/[address] the angle of the jaw at 90, no carotid bruits. Lungs: Clear and equal breath sounds bilaterally. No wheezing or crackles. Cardiac: Regular rhythm with normal S1 and S2. No murmur or gallop. Abdomen: Benign. Extremities: Nontender with 1+ edema. Intact peripheral pulses. Neurologic: Normal affect, nonfocal. DATA: Normal sodium, potassium 2.8, CO2 35, chloride 97, BUN 14, creatinine 0.82 (17 and 1.2 yesterday). Magnesium 2.1. IMPRESSION: 1. Marked hypokalemia, resolving with supplementation. 2. Recent right greater than left congestive heart failure secondary to RV systolic dysfunction, compensated currently. 3. Mild chronic kidney disease, normal creatinine currently. 4. Coronary artery disease, nonobstructive/no ischemia. DISCUSSION: Agree with Dr. Muller's recommendation for potassium supplementation. Also, agree with torsemide/amiloride diuretic combination to be initiated upon discharge (patient is clinically stable, no immediate need for diuretic). Avoid metolazone if possible. Will need close follow-up as outpatient with close compliance to low-sodium diet and volume status.
[2017-01-22] MEDS ORDERED: POTASSIUM CHLORIDE 10 MEQ TABCR PO ONE (16:00)
[2017-01-22] MEDS ORDERED: POTA-74 PO (17:17)
--- NOTE | 2017-01-22 17:25 | Discharge Instructions ---
Discharge Instructions Date of Service Jan 22, 2017. Admission Reason for Admission: Severe Hypokalemia, Acute On Chronic Renal Injury Discharge Discharge Diagnosis / Problem: Severe Hypokalemia (very low potassium level) Discharge Goals Goal(s): Learn about illness, Diagnostic testing, Therapeutic intervention Activity Recommendations Activity Limitations: resume your previous activity . Instructions / Follow-Up Instructions / Follow-Up From Dr. Trinidad: 1. Low potassium ("hypokalemia") - Your potassium just prior to discharge was 3.4 (normal is 3.5 to 5). Please continue your potassium supplement -- 20meq twice a day as previous. You can start this TONIGHT at bedtime. 2. Please come to [facility] on 01/24/17 or 01/25/17 for a blood draw to recheck your potassium level. Report to the main entrance of [facility] and let the administrative assistant front desk know you are there for a blood draw. Best time is in the morning. I will call you with your test results. Bring the prescription with you for the lab test. 3. STOP your furosemide (lasix) and STOP your metazolone water pills for now. You will likely resume diuretics/water pills next week. 4. Check your weight every day in the morning on a standing scale. Please let Dr. Talbert or Dr. Morales know right away if your weight is rising rapidly over the next few days. Look for weight gains of more than 2-3 pounds in 1-2 days. If that occurs again please contact your doctors. 5. Follow-up with Dr. Morales within 1 week. 6. Return to [facility] with - * difficulty breathing, chest pain, palpitations/racing heart * extreme weakness/fatigue * any other concerns Current Hospital Diet Patient's current hospital diet: Regular Diet, Diabetes Type 2 Diet Discharge Diet Recommended Diet: Diabetes Type 2 Diet Pending Studies Studies pending at discharge: no Laboratory Results Hemoglobin A1c Test 12/18/16 15:40 Range/Units Estimated Average Glucose 163 mg/dl Hemoglobin A1c 7.3 H 4.5-5.6 % Medical Emergencies . Who to Call and When: Medical Emergencies: If at any time you feel your situation is an emergency, please call 911 immediately. . Non-Emergent Contact Non-Emergency issues call your: Primary Care Provider, Semiautomatic Taper Operator Call Non-Emergent contact if: temperature is above 100.5, you have any medication questions . . "Provider Documentation" section prepared by Travis Trinidad. . VTE Core Measure Inpt VTE Proph given/why not?: Unfractionated heparin SQ
--- NOTE | 2017-01-28 06:11 | Discharge Summary ---
Discharge Summary Date of Service Jan 27, 2017. Discharge Summary Admission Date: Jan 20, 2017 at 19:05 Discharge Date: Jan 22, 2017 Discharge Disposition: Home Principal Diagnosis: severe hypokalemia 2nd to diuretic therapy Problems/Secondary Diagnoses: 1. Hypertension 2. T2DM on insulin pump 3. hyperlipidemia 4. MARY JANE 5. obesity 6. chronic LE edema 7. chronic cor pulmonale / RV systolic failure 8. acute kidney injury Immunizations: Have You Had Influenza Vaccine: Unknown History of Tetanus Vaccine?: Unknown History of Pneumococcal: Unknown History of Hepatitis B Vaccine: Unknown Consultations: cardiology - LEXIE Rodriguez nephrology - Maxi Muller MD Medication Reconciliation Changed Medications: Potassium Chloride (Potassium Chloride Er) 10 Meq Tab 20 MEQ PO BID, #120 TAB 2 Refills (Changed from: 10 MEQ; Refills: ) Continued Medications: Albuterol Hfa (Ventolin Hfa) 200 Puffs/48967 Mcg Aers 2-4 PUFFS INH Q6H PRN for SOB/Wheezing Atorvastatin (Lipitor) 40 Mg Tab 40 MG PO HS, TAB Budesonide/Formoterol Fumarate (Symbicort 160/4.5 Inhaler ) Aero 2 PUFFS INH BID PRN for Shortness of Breath Cinnamon (Cinnamon) 500 Mg Tab 2 TAB PO QAM Esomeprazole Magnesium (Nexium) 40 Mg Cap 40 MG PO BIDM, CAP Insulin Aspart (Novolog) 100 Unit/ Inj UNITS SC TIDM sliding scale 20 UNITS WITH BREAKFAST 30 UNITS WITH LUNCH 50 UNITS WITH SUPPER + Insulin Degludec (Tresiba Flextouch) 100 Unit/Ml Inj 50-76 UNITS SC HS Lorazepam (Ativan) 0.5 Mg Tab 0.5 MG PO TID, TAB Magnesium Oxide (Mg Supplement (Magnesium Oxide) 400 Mg Tab 1 TAB PO QPM Metoprolol Tartrate (Metoprolol Tartrate) 50 Mg Tab 1 TAB PO BID Morphine Sulfate (Morphine Sulfate Er) 15 Mg Tab 1 TAB PO BID Nitroglycerin (Nitrostat) 0.4 Mg Tab 0.4 MG UT PRN PRN for chest pain, BTL Ondansetron (Ondansetron Odt) 1 Homepack Ea 4 MG PO Q4 PRN for Nausea, #90 Oxycodone/Acetaminophen 5MG/325MG (Percocet 5MG/325MG) Tab 1 TABLET PO TID Paroxetine (Paxil) 20 Mg Tab 20 MG PO QPM Promethazine HCl (Promethazine HCl) 25 Mg Tab 25 MG PO UD PRN for Nausea, TAB Ranitidine Hcl (Zantac) 300 Mg Tab 300 MG PO BID, TAB Trazodone Hcl (Trazodone) 50 Mg Tab 50 MG PO HS Discontinued Medications: Furosemide (Lasix) 80 Mg Tab 120 MG PO QAM, TAB Metolazone (Metolazone) 5 Mg Tab 5 MG PO DAILY, #10 Referrals At Discharge Follow up Referrals: Video Systems Engineer Referral - Within 1 Week with Rob Morales D.O. Discharge Exam Physical Exam: General Appearance: no apparent distress ENT: pharynx normal Neck: no JVD Respiratory/Chest: lungs clear, no respiratory distress, no accessory muscle use Cardiovascular: regular rate, rhythm, no gallop, no murmur, normal peripheral pulses Abdomen / GI: normal bowel sounds, non tender, soft, no organomegaly Extremities: no pedal edema Neurologic/Psychiatric: alert, oriented x 3 Hospital Course HISTORY OF PRESENT ILLNESS: The patient is a 51-year-old white male with a significant past medical history of type 2 diabetes on insulin pump, GERD, dyslipidemia, hypertension, and chronic cor pulmonale / RV systolic CHF who presented with severe hypokalemia. He reports having gained about 14 pounds of fluid weight over the preceding last 2 weeks. At that time his travel agent added metazolone to his lasix. He had a brisk diuresis with loss of nearly all of the excess fluid weight. He had repeat blood work to ensure stability of his electrolytes and creatinine. At that time his potassium was found to be 2. In addition to the above he reported some mild, intermittent abdominal pain, constipation, shortness of breath, nausea, emesis, headache, and weakness. HOSPITAL COURSE: The patient's hypokalemia was corrected over a 2-day period with IV and oral potassium supplementation. Discharge potassium was 3.4. Acute kidney injury resolved with IV hydration. The DEIRDRE was felt to be due to dehydration. He was seen in consult by both nephrology and cardiology; both concurred the severe hypokalemia was due to the metazolone. He remained compensated from a CHF standpoint his entire stay. Telemetry remained normal as well. At discharge the following were recommended - 1. potassium supplement 20meq BID 2. HOLDING all diuretic therapy until seen in the clinic 3. repeat BMP on 01/24/17 . Total Time Spent: Less than 30 minutes This includes examination of the patient, discharge planning, medication reconciliation, and communication with other providers. Discharge Instructions Please refer to the electronic Patient Visit Report (Discharge Instructions) for additional information. Follow-Up report to [facility] on January 24, 2017 for repeat potassium level see Dr. Rob Morales, nephrology, within 1 week Additional Copies To Theo Venegas,P.Lina.; Rob Morales D.O.; Dioni Elkins M.D.
== END 2017-01-22 17:53 | disposition home or self-care (01) | DRG 641 ==
LOC: C.EDB 17:27 → C.MSICU 19:05 → ENRESERV 19:54 → C.MED 01-21 18:46
PROVIDERS: ADMIT Hospitalist; ATTEND Internal Medicine
DX: E87.6 Hypokalemia (principal); N17.9 Acute kidney failure, unspecified; I13.0 Hypertensive heart and chronic kidney disease with heart failure and stage 1 through stage 4 chronic kidney disease, or unspecified chronic kidney disease; Z83.3 Family history of diabetes mellitus; E87.1 Hypo-osmolality and hyponatremia; Z82.49 Family history of ischemic heart disease and other diseases of the circulatory system; R94.31 Abnormal electrocardiogram [ECG] [EKG]; Z96.41 Presence of insulin pump (external) (internal); K21.9 Gastro-esophageal reflux disease without esophagitis; E78.5 Hyperlipidemia, unspecified; E11.40 Type 2 diabetes mellitus with diabetic neuropathy, unspecified; Z79.4 Long term (current) use of insulin; Z79.01 Long term (current) use of anticoagulants; F41.9 Anxiety disorder, unspecified; I25.10 Atherosclerotic heart disease of native coronary artery without angina pectoris; N18.3 Chronic kidney disease, stage 3 (moderate); E11.22 Type 2 diabetes mellitus with diabetic chronic kidney disease; M79.7 Fibromyalgia; G47.33 Obstructive sleep apnea (adult) (pediatric); I50.9 Heart failure, unspecified; E11.42 Type 2 diabetes mellitus with diabetic polyneuropathy; R60.9 Edema, unspecified

== ENCOUNTER → 2017-01-20 | Outpatient (CLI) | payer OTHER ==
[~2017-01-20] MED LIST changes: -CHOL100010 PO; -LIDOCAINE HCL 2% 2 ML VIAL (20MG/ML) ONE; -MULT-884 PO; -PROPOFOL IV EMULSION 10 MG/ML 20 ML VIAL IV ONE; -SODIUM CHLORIDE 0.9% 500ML 500 ML IV ONE
[2017-01-20 15:08] LABS: ALKALINE PHOSPHATASE 103 U/L (45-117); ALT/SGPT 30 U/L (12-78); AST/SGOT 31 U/L (15-37); BLOOD UREA NITROGEN 24 mg/dl (7-18); BUN/CREATININE RATIO 17.3 (10-20); CALCIUM 9.4 mg/dl (8.5-10.1); CARBON DIOXIDE 39 mmol/L (21-32); CHLORIDE 79 mmol/L (98-107); GLUCOSE 308 mg/dl (70-99); MAGNESIUM 2.4 mg/dl (1.8-2.4); SODIUM 126 mmol/L (136-145); URIC ACID 10.2 mg/dl (2.6-7.2)
[2017-01-20 15:25] LABS: BETA-HYDROXYBUTYRATE 1.07 mg/dL (0.2-2.81)
== END | disposition home or self-care (01) ==
LOC: C.LAB 12:13
PROVIDERS: ATTEND Internal Medicine Nephrology
DX: E11.42 Type 2 diabetes mellitus with diabetic polyneuropathy (principal); R60.9 Edema, unspecified

== ENCOUNTER → 2017-01-24 | Outpatient (CLI) | payer OTHER ==
[~2017-01-24] MED LIST changes: -CLOB-65 EXT; -FEXO3TAB PO; -FURO80TA63 PO; -METH-446 PO; -SPIR50TA3 PO; +ZFRODT4HP PO; -ZOLP5TAB6 PO
[2017-01-24 10:38] LABS: BLOOD UREA NITROGEN 14 mg/dl (7-18); BUN/CREATININE RATIO 13.8 (10-20); CALCIUM 8.8 mg/dl (8.5-10.1); CARBON DIOXIDE 29 mmol/L (21-32); CHLORIDE 103 mmol/L (98-107); GLUCOSE 133 mg/dl (70-99); POTASSIUM 3.8 mmol/L (3.5-5.1); SODIUM 138 mmol/L (136-145)
== END | disposition home or self-care (01) ==
LOC: C.LAB 09:57
PROVIDERS: ATTEND Internal Medicine
DX: E87.6 Hypokalemia (principal)

== ENCOUNTER → 2017-01-27 | Outpatient (CLI) | payer OTHER | END | disposition home or self-care (01) | LOC: C.LAB 12:04 | PROVIDERS: ATTEND Nurse Practitioner Family | DX: N39.0 Urinary tract infection, site not specified (principal) ==

== ENCOUNTER → 2017-01-30 | Outpatient (CLI) | payer OTHER ==
[~2017-01-30] MED LIST changes: +CLOB-65 EXT; +FEXO3TAB PO; +FURO80TA63 PO; +METH-446 PO; +SPIR50TA3 PO; +ZOLP5TAB6 PO; +ZRX5 PO
[2017-01-30 13:57] LABS: BLOOD UREA NITROGEN 7 mg/dl (7-18); BUN/CREATININE RATIO 5.6 (10-20); CALCIUM 8.6 mg/dl (8.5-10.1); CARBON DIOXIDE 33 mmol/L (21-32); CHLORIDE 100 mmol/L (98-107); GLUCOSE 113 mg/dl (70-99); MAGNESIUM 1.9 mg/dl (1.8-2.4); PHOSPHORUS 3.6 mg/dl (2.5-4.9); POTASSIUM 4.1 mmol/L (3.5-5.1); SODIUM 139 mmol/L (136-145)
== END | disposition home or self-care (01) ==
LOC: C.LAB 12:46
PROVIDERS: ATTEND Internal Medicine Nephrology
DX: N18.3 Chronic kidney disease, stage 3 (moderate) (principal)

== ENCOUNTER → 2017-02-10 | Outpatient (CLI) | payer OTHER ==
[~2017-02-10] MED LIST changes: -CLOB-65 EXT; -FEXO3TAB PO; -FURO80TA63 PO; -METH-446 PO; -SPIR50TA3 PO; -ZOLP5TAB6 PO; -ZRX5 PO
[2017-02-10 12:39] LABS: URINE TOTAL PROTEIN < 5.0 mg/dl (0-11.9)
[2017-02-10 12:40] LABS: BLOOD UREA NITROGEN 12 mg/dl (7-18); BUN/CREATININE RATIO 12.2 (10-20); CALCIUM 8.6 mg/dl (8.5-10.1); CARBON DIOXIDE 33 mmol/L (21-32); CHLORIDE 102 mmol/L (98-107); GLUCOSE 126 mg/dl (70-99); PHOSPHORUS 3.6 mg/dl (2.5-4.9); POTASSIUM 3.4 mmol/L (3.5-5.1); SODIUM 142 mmol/L (136-145)
== END | disposition home or self-care (01) ==
LOC: C.LAB 09:59
PROVIDERS: ATTEND Physician Assistant Medical
DX: R60.9 Edema, unspecified (principal)

== ENCOUNTER → 2017-03-20 | Outpatient (CLI) | payer OTHER ==
[2017-03-20 13:47] LABS: BLOOD UREA NITROGEN 10 mg/dl (7-18); BUN/CREATININE RATIO 9.5 (10-20); CALCIUM 8.8 mg/dl (8.5-10.1); CARBON DIOXIDE 32 mmol/L (21-32); CHLORIDE 99 mmol/L (98-107); CREATININE 1.08 mg/dl (0.60-1.40); GLUCOSE 139 mg/dl (70-99); MAGNESIUM 1.9 mg/dl (1.8-2.4); PHOSPHORUS 3.9 mg/dl (2.5-4.9); POTASSIUM 3.5 mmol/L (3.5-5.1); SODIUM 137 mmol/L (136-145)
[2017-03-20 14:31] LABS: ESTIMATED AVERAGE GLUCOSE 166 mg/dl; HA1C FLAG Normal (Normal)
== END | disposition home or self-care (01) ==
LOC: C.LAB 11:49
PROVIDERS: ATTEND Nurse Practitioner Family
DX: R60.9 Edema, unspecified (principal); E11.9 Type 2 diabetes mellitus without complications

== ENCOUNTER → 2017-04-13 | Outpatient (CLI) | payer OTHER ==
[~2017-04-13] MED LIST changes: +CALC1CRE2 TOP; +CEPH500C PO; +DMD20 PO; +ERGO500011 PO; +NOVOLOG SQ; +PHEN-775 PO; +POTA20TA16 PO; +RANI150T3 PO; +TAMS0.4C38 PO; +TRAM-10 PO
[2017-04-13 12:22] LABS: BLOOD UREA NITROGEN 10 mg/dl (7-18); CALCIUM 8.7 mg/dl (8.5-10.1); CARBON DIOXIDE 32 mmol/L (21-32); CREATININE 1.15 mg/dl (0.60-1.40); GLUCOSE 179 mg/dl (70-99); PHOSPHORUS 3.1 mg/dl (2.5-4.9); POTASSIUM 3.8 mmol/L (3.5-5.1); SODIUM 136 mmol/L (136-145)
== END | disposition home or self-care (01) ==
LOC: C.LAB 11:23
PROVIDERS: ATTEND Internal Medicine Nephrology
DX: I12.9 Hypertensive chronic kidney disease with stage 1 through stage 4 chronic kidney disease, or unspecified chronic kidney disease (principal); N18.3 Chronic kidney disease, stage 3 (moderate)

== ENCOUNTER → 2017-04-20 | Outpatient (CLI) | payer OTHER ==
[~2017-04-20] MED LIST changes: -CEPH500C PO; -PHEN-775 PO; -TRAM-10 PO
--- NOTE | 2017-04-20 12:42 | DIAGNOSTIC IMAGING REPORT ---
(RENAL)RETROPERITON COMP CLINICAL HISTORY: 51 years-old Male presenting with N40.1 Benign prostatic hyperplasia with urinary [id number]. TECHNIQUE: Real-time grayscale and limited color Doppler ultrasound imaging of the kidneys and bladder was performed. COMPARISON: 03/20/2015. FINDINGS: Right kidney: Normal echogenicity. Right kidney measures 13.2 cm. No hydronephrosis. No convincing evidence of calculus or mass. Normal perfusion. Left kidney: Normal echogenicity. Left kidney measures 13.5 cm. No hydronephrosis. No convincing evidence of calculus or mass. Normal perfusion. Bladder: Mild circumference of bladder wall thickening suggest chronic outlet obstruction. No median lobe hypertrophy is evident. Bilateral ureteral jets present. Other: Hyperechogenic hepatic parenchyma suggest steatosis.. IMPRESSION: 1. Normal kidneys. No hydronephrosis. 2. Suggestion of chronic bladder outlet obstruction. 3. Hepatic steatosis. Electronically signed by: Hussein Hodges M.D. 04/20/2017 12:40 PM Dictated Date/Time: 04/20/2017 12:38 PM
== END | disposition home or self-care (01) ==
LOC: C.ULTR 10:48
PROVIDERS: ATTEND Urology
DX: N40.1 Benign prostatic hyperplasia with lower urinary tract symptoms (principal); R33.9 Retention of urine, unspecified

== ENCOUNTER → 2017-04-30 | Day surgery (SDC) | payer OTHER ==
[2017-04-20 11:15] VITALS: BMI 37.0
--- NOTE | 2017-04-20 11:57 | PAT Medication Instructions ---
Service Date Apr 20, 2017. Current Home Medication List Albuterol Hfa (Ventolin Hfa), 2-4 PUFFS INH Q6H PRN for SOB/Wheezing Atorvastatin (Lipitor), 40 MG PO HS Budesonide/Formoterol Fumarate (Symbicort 160/4.5 Inhaler ), 2 PUFFS INH BID PRN for PRN Calcipotriene (Calcipotriene), 1 DOSE TOP BID Cinnamon (Cinnamon), 2 TAB PO QAM Ergocalciferol (Vitamin D 49859 Unit), 1 TAB PO WK Esomeprazole Magnesium (Nexium), 40 MG PO BIDM Insulin Degludec (Tresiba Flextouch), 50-76 UNITS SC HS Lorazepam (Ativan), 0.5 MG PO TID Magnesium Oxide (Mg Supplement (Magnesium Oxide), 1 TAB PO QPM Metoprolol Tartrate (Metoprolol Tartrate), 1 TAB PO BID Morphine Sulfate (Morphine Sulfate Er), 1 TAB PO BID Nitroglycerin (Nitrostat), 0.4 MG UT PRN PRN for chest pain Ondansetron (Ondansetron Odt), 4 MG PO Q4 PRN for Nausea Oxycodone/Acetaminophen 5MG/325MG (Percocet 5MG/325MG), 1 TABLET PO TID Paroxetine (Paxil), 20 MG PO QPM Potassium Ext Rel (Klor-Con), 20 MEQ PO BID Promethazine HCl (Promethazine HCl), 25 MG PO UD PRN for Nausea Ranitidine Hcl (Zantac), 150 MG PO BID Tamsulosin Hcl (Flomax), 0.4 MG PO BID Torsemide (Torsemide), 20 MG PO BID Trazodone Hcl (Trazodone), 25 MG PO HS [Novolog], 1 DOSE SQ TIDM Medication Instructions For Your Scheduled Surgery - Continue as directed: Nitroglycerin (Nitrostat), 0.4 MG UT PRN PRN for chest pain Ergocalciferol (Vitamin D 29942 Unit), 1 TAB PO WK - Hold the following medications as of 04/21/17: Cinnamon (Cinnamon), 2 TAB PO QAM - Hold the following medications 24 hours prior to surgery: Calcipotriene (Calcipotriene), 1 DOSE TOP BID - Hold the following medications the morning of surgery: [Novolog], 1 DOSE SQ TIDM Torsemide (Torsemide), 20 MG PO BID Potassium Ext Rel (Klor-Con), 20 MEQ PO BID - Take the following medications the morning of surgery with a sip of water OTHERWISE NOTHING TO EAT OR DRINK AFTER MIDNIGHT: Albuterol Hfa (Ventolin Hfa), 2-4 PUFFS INH Q6H PRN for SOB/Wheezing (use if needed; BRING TO HOSPITAL) Budesonide/Formoterol Fumarate (Symbicort 160/4.5 Inhaler ), 2 PUFFS INH BID PRN Oxycodone/Acetaminophen 5MG/325MG (Percocet 5MG/325MG), 1 TABLET PO TID (may take if needed up to 4 hours prior to surgery) Esomeprazole Magnesium (Nexium), 40 MG PO BIDM Lorazepam (Ativan), 0.5 MG PO TID Ondansetron (Ondansetron Odt), 4 MG PO Q4 PRN for Nausea Metoprolol Tartrate (Metoprolol Tartrate), 1 TAB PO BID Morphine Sulfate (Morphine Sulfate Er), 1 TAB PO BID (may take if needed up to 4 hours prior to surgery) Ranitidine Hcl (Zantac), 150 MG PO BID Tamsulosin Hcl (Flomax), 0.4 MG PO BID Promethazine HCl (Promethazine HCl), 25 MG PO UD PRN for Nausea - Take the following medications as scheduled the night before surgery: [Novolog], 1 DOSE SQ TIDM Insulin Degludec (Tresiba Flextouch), 50-76 UNITS SC HS Albuterol Hfa (Ventolin Hfa), 2-4 PUFFS INH Q6H PRN for SOB/Wheezing Atorvastatin (Lipitor), 40 MG PO HS Budesonide/Formoterol Fumarate (Symbicort 160/4.5 Inhaler ), 2 PUFFS INH BID PRN Paroxetine (Paxil), 20 MG PO QPM Trazodone Hcl (Trazodone), 25 MG PO HS Oxycodone/Acetaminophen 5MG/325MG (Percocet 5MG/325MG), 1 TABLET PO TID Esomeprazole Magnesium (Nexium), 40 MG PO BIDM Lorazepam (Ativan), 0.5 MG PO TID Ondansetron (Ondansetron Odt), 4 MG PO Q4 PRN for Nausea Torsemide (Torsemide), 20 MG PO BID Metoprolol Tartrate (Metoprolol Tartrate), 1 TAB PO BID Morphine Sulfate (Morphine Sulfate Er), 1 TAB PO BID Ranitidine Hcl (Zantac), 150 MG PO BID Tamsulosin Hcl (Flomax), 0.4 MG PO BID Promethazine HCl (Promethazine HCl), 25 MG PO UD PRN for Nausea Potassium Ext Rel (Klor-Con), 20 MEQ PO BID Magnesium Oxide (Mg Supplement (Magnesium Oxide), 1 TAB PO QPM If you have any questions please call us at [phone] or [phone] or [phone]
[2017-04-20 12:07] LABS: BASO % 0.6 %; BASO ABS # 0.04 K/uL (0-0.2); EOS % 2.4 %; EOS ABS # 0.17 K/uL (0-0.5); HEMATOCRIT 44.7 % (42-52); HEMOGLOBIN 15.6 g/dL (14.0-18.0); IG# 0.01 K/uL (0.00-0.02); LYMPH % 47.6 %; LYMPH ABS # 3.39 K/uL (1.2-3.4); MEAN CELL VOLUME 90.7 fL (80-100); MEAN CORPUSCULAR HEMOGLOBIN 31.6 pg (25-34); MEAN CORPUSCULAR HGB CONC 34.9 g/dl (32-36); MEAN PLATELET VOLUME 9.8 fL (7.4-10.4); MONO % 12.9 %; MONO ABS # 0.92 K/uL (0.11-0.59); NEUT % 36.4 %; NEUT ABS # 2.59 K/uL (1.4-6.5); PLATELET COUNT 223 K/uL (130-400); RED CELL DISTRIBUTION WIDTH CV 12.8 % (11.5-14.5); RED CELL DISTRIBUTION WIDTH SD 42.1 fL (36.4-46.3); WHITE BLOOD COUNT 7.12 K/uL (4.8-10.8)
[2017-04-20 13:24] LABS: CALCIUM 8.3 mg/dl (8.5-10.1); CREATININE 1.2 mg/dl (0.60-1.40); POTASSIUM 3.7 mmol/L (3.5-5.1)
[~2017-04-30] VITALS: Ht 182.9 cm; Wt 124.7 kg
[~2017-04-30] MED LIST changes: +CEPH500C PO; +CHECK SCOPOLAMINE PATCH PLACEMENT SCH; +CIPROFLOXACIN / D5W 400 MG IV SCH; +CONRAY 30% 150ML BOTTLE ONE; +DEXAMETHASONE SOD INJ 4 MG/ML VIAL ONE; -DMD20 PO; +FENTANYL CITRATE INJ 50 MCG/1 ML 2 ML VIAL ONE; +GLYCOPYRROLATE INJ 0.2 MG/ML VIAL ONE; +LACTATED RINGER'S 1000ML 1,000 ML IV SCH; +LIDOCAINE HCL 2% 2 ML VIAL (20MG/ML) ONE; +MIDAZOLAM HCL 1 MG/ML 2ML VIAL ONE; -NVLGI SC; +ONDANSETRON INJ 2 MG/ML 2 ML VIAL ONE; +OXYCODONE/ACETAMINOPHEN 7.5-325 TAB PO PRN; +PHEN-775 PO; +POTA-639 PO; -POTA-74 PO; -POTA20TA16 PO; +PROPOFOL IV EMULSION 10 MG/ML 20 ML VIAL IV ONE; -RANI300T PO; +SCOPOLAMINE 1.5 MG TDSY TD ONE; +SCOPOLAMINE 1.5 MG TDSY TD SCH; +TORS20TA3 PO; +TRAM-10 PO
[2017-04-30 08:48] VITALS: BP 113/73; PULSE 55; TEMP 36.7; O2SAT 95; Ht 182.9 cm; Wt 124.7 kg
--- NOTE | 2017-04-30 10:20 | History & Physical Bridge Note ---
H&P Re-Evaluation Bridge Note: I have examined the patient, reviewed the History & Physical and in the interval since the performance of the History & Physical I have noted the following changes of clinical significance: No changes noted
--- NOTE | 2017-04-30 10:32 | Discharge Instructions ---
Discharge Instructions Date of Service Apr 30, 2017. Admission Reason for Admission: Benign Prostatic Hypertrophy, Urinary Retention Discharge Discharge Diagnosis / Problem: Hematuria Discharge Goals Goal(s): Decrease discomfort, Improve function Activity Recommendations Activity Limitations: resume your previous activity Lifting Limitations: no more than 25 pounds, gradually increase as tolerated Exercise/Sports Limitations: gradually increase as tolerated Shower/Bathe: no limitations . Instructions / Follow-Up Instructions / Follow-Up May have blood in urine. May have discomfort. Sanders care instructions as per protocol. Current Hospital Diet Patient's current hospital diet: DM Discharge Diet Recommended Diet: Diabetes Type 2 Diet Procedures Procedures Performed: Cysto and Retrogrades Pending Studies Studies pending at discharge: no Laboratory Results Hemoglobin A1c Test 03/20/17 12:11 Range/Units Estimated Average Glucose 166 mg/dl Hemoglobin A1c 7.4 H 4.5-5.6 % Medical Emergencies . Who to Call and When: Medical Emergencies: If at any time you feel your situation is an emergency, please call 911 immediately. . Non-Emergent Contact Non-Emergency issues call your: Primary Care Provider, Urologist Call Non-Emergent contact if: you have a fever, temperature is above 101, temperature is above 101.5, your pain is not controlled, your pain is worsening . . "Provider Documentation" section prepared by Maxi Moffett,. . VTE Core Measure Inpt VTE Proph given/why not?: SCD's
--- NOTE | 2017-04-30 11:47 | [facility] Operative Report ---
Operative Report Operative Date Apr 30, 2017. Pre-Operative Diagnosis Hematuria, Obstruction Post-Operative Diagnosis Cysto, bilateral retrograde Procedure(s) Performed Same Surgeon Zuhair Journalism Instructor Surgeon(s) None Estimated Blood Loss Minimal Findings Large prostate with signs of chronic obstruction Anesthesia General Complication(s) None Disposition Recovery Room / PACU Indications Hematuria and dysuria with signs of obstruction Description of Procedure Patient was consented and brought back to the operating room. Patient was placed under anesthesia in the supine position. Patient was prepped and draped in the regular sterile fashion. A time out was completed. A 30 degree Cystoscope was placed into the bladder and the entire bladder was examined. The UO's were identified. Each ureter orifice was cannulized with a catheter and a retrograde pyelogram was completed. No filling defects were noted. The entire bladder was assessed. No masses or lesions. Of note, the patient had signs of chronic retention and mild enlarged prostate. The bladder was emptied. The scope was removed. The patient was cleaned, aroused from anesthesia, and transferred to the pacu in stable condition having tolerated the procedure well with no complications. I was present and participated in all aspects of the procedure. The patient will be monitored in the PACU until transferred. I attest to the content of the Intraoperative Record and any orders documented therein. Any exceptions are noted below.
--- NOTE | 2017-04-30 12:01 | Anesthesiology Progress Note ---
Anesthesia Post Op Note Date & Time Apr 30, 2017 at 12:01 Vital Signs Pain Intensity: 0 Vital Signs Past 12 Hours Date Time Temp Pulse Resp B/P (MAP) Pulse Ox O2 Delivery O2 Flow Rate FiO2 04/30/17 12:00 36.5 04/30/17 11:57 Room Air 04/30/17 11:56 147/88 04/30/17 11:55 66 16 98 04/30/17 11:55 65 04/30/17 11:51 125/83 04/30/17 11:50 63 16 04/30/17 11:50 64 98 04/30/17 11:46 115/85 04/30/17 11:45 64 14 04/30/17 11:45 63 14 99 04/30/17 11:41 129/85 04/30/17 11:40 64 11 98 04/30/17 11:40 64 11 04/30/17 11:36 116/87 04/30/17 11:35 63 10 98 04/30/17 11:35 64 10 04/30/17 11:31 119/89 04/30/17 11:30 63 12 04/30/17 11:30 63 12 98 04/30/17 11:26 115/86 04/30/17 11:25 63 12 04/30/17 11:25 64 12 98 04/30/17 11:24 127/81 04/30/17 11:10 36.4 66 10 131/74 88 Oxymask 10 04/30/17 08:48 36.7 55 18 113/73 (86) 95 Room Air Notes Mental Status: alert / awake / arousable, participated in evaluation Pt Amnestic to Procedure: Yes Nausea / Vomiting: adequately controlled Pain: adequately controlled Airway Patency, RR, SpO2: stable & adequate BP & HR: stable & adequate Hydration State: stable & adequate Anesthetic Complications: no major complications apparent
[2017-04-30 12:13] VITALS: BP 139/69; PULSE 65; TEMP 36.4; O2SAT 93
--- NOTE | 2017-04-30 12:25 | DIAGNOSTIC IMAGING REPORT ---
RETROGRADE INCLUDES KUB CLINICAL HISTORY: BILATERAL RETROGRADES COMPARISON STUDY: No previous studies for comparison. FINDINGS: 34 seconds of fluoroscopic time was utilized. 13 fluoroscopic spot images are provided for interpretation. The right ureter was catheterized in a retrograde fashion. No ureteral or collecting system lesions are visualized. The left ureter was catheterized in a retrograde fashion. No ureteral or collecting system lesions are visualized. Renal pelvic filling defects are felt to represent air bubbles. IMPRESSION: No suspicious uroepithelial masses are visualized. No evidence of hydronephrosis. Electronically signed by: Demarcus Way M.D. 04/30/2017 12:24 PM Dictated Date/Time: 04/30/2017 12:22 PM
[2017-04-30 12:50] VITALS: BP 112/65; PULSE 69; O2SAT 92
[2017-04-30 13:20] VITALS: BP 152/87; PULSE 65; TEMP 36.5; O2SAT 93
== END | disposition home or self-care (01) ==
LOC: C.ACU 08:07
PROVIDERS: ATTEND Urology
DX: R31.9 Hematuria, unspecified (principal); N13.8 Other obstructive and reflux uropathy; N40.1 Benign prostatic hyperplasia with lower urinary tract symptoms; R33.9 Retention of urine, unspecified; J44.9 Chronic obstructive pulmonary disease, unspecified; I12.9 Hypertensive chronic kidney disease with stage 1 through stage 4 chronic kidney disease, or unspecified chronic kidney disease; N18.3 Chronic kidney disease, stage 3 (moderate); I25.10 Atherosclerotic heart disease of native coronary artery without angina pectoris; F41.9 Anxiety disorder, unspecified; E78.5 Hyperlipidemia, unspecified; E66.9 Obesity, unspecified; Z90.89 Acquired absence of other organs; Z82.49 Family history of ischemic heart disease and other diseases of the circulatory system; Z83.3 Family history of diabetes mellitus; Z87.891 Personal history of nicotine dependence; Z98.890 Other specified postprocedural states; Z68.37 Body mass index [BMI] 37.0-37.9, adult

== ENCOUNTER → 2017-06-23 | Outpatient (CLI) | payer OTHER ==
[~2017-06-23] MED LIST changes: -CHECK SCOPOLAMINE PATCH PLACEMENT SCH; -CIPROFLOXACIN / D5W 400 MG IV SCH; -CONRAY 30% 150ML BOTTLE ONE; -DEXAMETHASONE SOD INJ 4 MG/ML VIAL ONE; +DMD20 PO; -FENTANYL CITRATE INJ 50 MCG/1 ML 2 ML VIAL ONE; -GLYCOPYRROLATE INJ 0.2 MG/ML VIAL ONE; -LACTATED RINGER'S 1000ML 1,000 ML IV SCH; -LIDOCAINE HCL 2% 2 ML VIAL (20MG/ML) ONE; -MIDAZOLAM HCL 1 MG/ML 2ML VIAL ONE; -ONDANSETRON INJ 2 MG/ML 2 ML VIAL ONE; -OXYCODONE/ACETAMINOPHEN 7.5-325 TAB PO PRN; -PHEN-775 PO; -POTA-639 PO; +POTA20TA16 PO; -PROPOFOL IV EMULSION 10 MG/ML 20 ML VIAL IV ONE; -SCOPOLAMINE 1.5 MG TDSY TD ONE; -SCOPOLAMINE 1.5 MG TDSY TD SCH; -TORS20TA3 PO
[2017-06-23 15:49] LABS: ALBUMIN 3.9 gm/dl (3.4-5.0); BLOOD UREA NITROGEN 13 mg/dl (7-18); CALCIUM 8.3 mg/dl (8.5-10.1); CARBON DIOXIDE 28 mmol/L (21-32); CREATININE 1.32 mg/dl (0.60-1.40); PHOSPHORUS 3.3 mg/dl (2.5-4.9); POTASSIUM 3.5 mmol/L (3.5-5.1); SODIUM 132 mmol/L (136-145)
[2017-06-23 15:50] LABS: GLUCOSE 418 mg/dl (70-99)
== END | disposition home or self-care (01) ==
LOC: C.LAB1850 14:14
PROVIDERS: ATTEND Internal Medicine Nephrology
DX: I10 Essential (primary) hypertension (principal)

== ENCOUNTER → 2017-07-17 | Outpatient (CLI) | payer OTHER | END | disposition home or self-care (01) | LOC: C.LABSPEC 13:33 | PROVIDERS: ATTEND Dermatology | DX: L01.00 Impetigo, unspecified (principal) ==

== ENCOUNTER → 2017-09-01 | Outpatient (CLI) | payer OTHER ==
[~2017-09-01] MED LIST changes: +POTA-639 PO; -POTA20TA16 PO
== END | disposition home or self-care (01) ==
LOC: C.PATHSPEC 17:55
PROVIDERS: ATTEND Plastic Surgery
DX: C72.59 Malignant neoplasm of other cranial nerves (principal)

== ENCOUNTER → 2017-09-10 | Outpatient (CLI) | payer OTHER ==
[2017-09-10 19:56] LABS: BLOOD UREA NITROGEN 12 mg/dl (7-18); CALCIUM 8.4 mg/dl (8.5-10.1); CARBON DIOXIDE 31 mmol/L (21-32); CREATININE 1.07 mg/dl (0.60-1.40); GLUCOSE 254 mg/dl (70-99); PHOSPHORUS 3.5 mg/dl (2.5-4.9); POTASSIUM 3.6 mmol/L (3.5-5.1); SODIUM 135 mmol/L (136-145)
== END | disposition home or self-care (01) ==
LOC: C.LAB 16:34
PROVIDERS: ATTEND Internal Medicine Nephrology
DX: Z87.898 Personal history of other specified conditions (principal); R60.9 Edema, unspecified; E55.9 Vitamin D deficiency, unspecified

== ENCOUNTER → 2017-09-28 | Outpatient (CLI) | payer OTHER ==
--- NOTE | 2017-09-28 13:32 | DIAGNOSTIC IMAGING REPORT ---
CERVICAL WITHOUT CONTRAST CLINICAL HISTORY: 51 years-old Male presenting with LOW BACK PAIN, CERVICALGIA, prior cervical spine surgery, no known injury or history of cancer. TECHNIQUE: Multisequence, multiplanar MR imaging of the cervical spine was performed without the use of intravenous contrast. IV contrast: None. COMPARISON: CT from 01/13/2014 and MR from 01/03/2014. FINDINGS: Localizer images: Unremarkable. Straightening of normal cervical lordosis likely due to the presence of anterior cervical discectomy and fusion with plate and screw fixation of C4-C6. Interbody spacers noted at these levels. At the nonoperative levels, vertebral bodies maintain normal height and alignment. Minimal bony edema evident at the posterior aspect of the superior endplate of C7, likely degenerative in etiology. Intervertebral discs at the nonoperative levels are preserved. There is significant adjacent level degenerative change, which is overall similar to prior exam in 2013. Degenerative changes further detailed below: C2-3: No significant spinal canal narrowing. Right uncovertebral hypertrophy results in moderate right neural foraminal narrowing. C3-4: Disk osteophyte complex in effacement of the ventral thecal sac and contouring of the spinal cord. Posterior CSF spaces preserved at this level. There is also mild right and moderate left neural foraminal narrowing secondary to disc osteophyte complex/uncovertebral hypertrophy. C4-5: No significant spinal canal or neural foraminal narrowing. C5-6: Uncovertebral hypertrophy on the right results in mild right neural foraminal narrowing. No significant spinal canal narrowing. C6-7: Disc osteophyte complex/uncovertebral hypertrophy and ligamentum flavum thickening significantly in circumferential narrowing of the spinal canal. There is suggestion of an annular fissure of the disc at this level. Mild flattening of the spinal cord, similar morphology to prior exam. Severe bilateral neural foraminal narrowing also noted. C7-T1: No significant neural foraminal or spinal canal narrowing. Spinal cord maintains normal signal intensity despite contouring at C3-4 and flattening at C6-7. Paraspinal musculature without evidence of edema. No epidural collection. IMPRESSION: 1. Postsurgical changes of anterior cervical discectomy and fusion of C4-C6. No MR evidence of hardware competition apart from significant adjacent level degenerative change. 2. Adjacent level degenerative change at C3-4 and C6-7 is similar to prior exam in 2014 and does not appear significantly progressed. Severe spinal canal stenosis at C6-7 as on prior exam. No spinal cord edema or myelomalacia evident. Neural foraminal narrowing is also most severe at this level with additional degenerative changes as detailed above. Electronically signed by: Hussein Hodges M.D. 09/28/2017 1:31 PM Dictated Date/Time: 09/28/2017 1:23 PM
--- NOTE | 2017-09-28 13:50 | DIAGNOSTIC IMAGING REPORT ---
MRI OF THE THORACIC SPINE WITHOUT IV CONTRAST CLINICAL HISTORY: Thoracic back pain. COMPARISON STUDY: Chest CT dated 03/11/2015. TECHNIQUE: MRI of the thoracic spine is performed utilizing various T1 and T2-weighted sequences in the axial and sagittal planes. IV contrast was not administered for this examination. FINDINGS: Vertebral body height and alignment are maintained throughout the thoracic spine. Marrow signal intensity is heterogeneous. Degenerative endplate edema is seen at T6-T7, T7-T8, and T9-T10. No destructive bony process is identified. The transverse and spinous processes are intact as visualized. No destructive osseous lesion is seen. Fusion hardware is partially visualized in the lower cervical region. Posterior disc bulges are seen at T3-T4, as well as from T6-T7 through T9-T10. Degenerative disc desiccation and mild loss of height is noted throughout the thoracic spine. There is no large disc herniation or acquired compromise of the central canal. No significant neural foraminal stenosis is seen throughout the thoracic region. The thoracic spinal cord is normal in morphology and signal intensity. There is a 5.7 x 2.1 cm lipoma identified in the soft tissues of the right upper back. The paraspinous soft tissues are otherwise normal in appearance. The lung parenchyma is grossly unremarkable, but not well evaluated by MRI. Small hepatic cysts are incidentally noted. IMPRESSION: 1. There is no disc herniation or significant acquired compromise of the central canal in the thoracic spine. 2. Degenerative disc disease and degenerative endplate change as detailed above. 3. The thoracic spinal cord is normal in morphology and signal intensity. Dictated: 09/28/2017 1:23 PM Transcribed: 09/28/2017 1:49 PM JIHAN_Faraz Electronically signed by: Danish Steen M.D. 09/28/2017 1:52 PM Dictated Date/Time: 09/28/2017 1:23 PM
== END | disposition home or self-care (01) ==
LOC: C.MRI 11:50
PROVIDERS: ATTEND Nurse Practitioner Primary Care
DX: M48.02 Spinal stenosis, cervical region (principal); M51.34 Other intervertebral disc degeneration, thoracic region; M25.552 Pain in left hip; M54.16 Radiculopathy, lumbar region; M46.1 Sacroiliitis, not elsewhere classified; F11.20 Opioid dependence, uncomplicated; G89.4 Chronic pain syndrome; M54.32 Sciatica, left side; M79.1 Myalgia

== ENCOUNTER → 2017-10-01 | Outpatient (CLI) | payer OTHER ==
--- NOTE | 2017-10-01 13:13 | DIAGNOSTIC IMAGING REPORT ---
MRI OF THE LUMBAR SPINE WITHOUT CONTRAST CLINICAL HISTORY: Low back pain radiating into both lower extremities. COMPARISON STUDY: Lumbar spine MRI June 08, 2015. TECHNIQUE: Utilizing a 1.5 Ama magnet and dedicated coil, multiplanar, multiecho imaging of the lumbar spine was performed without IV contrast. FINDINGS: For purposes of numbering on this exam, the L5-S1 disc space is assigned to axial image 27 of 30. There is a left pars defect at the L5 level. There is minimal interval C6 of L5 on S1. Alignment is otherwise anatomic. Vertebral body heights are maintained. There is no suspicious marrow replacement. No intracanalicular mass or fluid collection is present. Conus terminates at the upper L1 level. Paravertebral soft tissues are unremarkable. There is mild disc space narrowing at L5-S1. L1-2: The central canal and neural foramen are patent. L2-3: The central canal and neural foramen are patent. L3-4: The central canal and neural foramen are patent. L4-5: There is moderate facet arthrosis. The central canal and neural foramen are patent. L5-S1: There is facet arthrosis. Central canal neural foramen are patent. IMPRESSION: 1. Patent central canal and neural foramen. No disc herniation. 2. Left L5 pars defect with minimal anterolisthesis of L5 on S1. 3. Mild disc space narrowing at L5-S1. Electronically signed by: El Phelan M.D. 10/01/2017 1:11 PM Dictated Date/Time: 10/01/2017 1:06 PM
== END | disposition home or self-care (01) ==
LOC: C.MRI 12:00
PROVIDERS: ATTEND Nurse Practitioner Primary Care
DX: M25.552 Pain in left hip (principal); M54.16 Radiculopathy, lumbar region; M46.1 Sacroiliitis, not elsewhere classified; F11.20 Opioid dependence, uncomplicated; G89.4 Chronic pain syndrome; M54.2 Cervicalgia; M54.32 Sciatica, left side; M79.1 Myalgia

== ENCOUNTER → 2017-12-10 | Outpatient (CLI) | payer OTHER ==
[~2017-12-10] MED LIST changes: -CEPH500C PO; -DMD20 PO; +TORS20TA3 PO; -TRAM-10 PO
[2017-12-10 12:18] LABS: BASO % 0.6 %; BASO ABS # 0.04 K/uL (0-0.2); EOS % 2.4 %; EOS ABS # 0.16 K/uL (0-0.5); HEMATOCRIT 45.2 % (42-52); HEMOGLOBIN 15.3 g/dL (14.0-18.0); IG# 0.01 K/uL (0.00-0.02); LYMPH % 41.9 %; MEAN CELL VOLUME 92.1 fL (80-100); MEAN CORPUSCULAR HEMOGLOBIN 31.2 pg (25-34); MEAN CORPUSCULAR HGB CONC 33.8 g/dl (32-36); MEAN PLATELET VOLUME 10.7 fL (7.4-10.4); MONO % 8.8 %; MONO ABS # 0.59 K/uL (0.11-0.59); NEUT % 46.2 %; NEUT ABS # 3.09 K/uL (1.4-6.5); PLATELET COUNT 258 K/uL (130-400); RED CELL DISTRIBUTION WIDTH CV 12.9 % (11.5-14.5); RED CELL DISTRIBUTION WIDTH SD 43.2 fL (36.4-46.3); WHITE BLOOD COUNT 6.69 K/uL (4.8-10.8)
[2017-12-10 12:40] LABS: ALBUMIN 3.8 gm/dl (3.4-5.0); BLOOD UREA NITROGEN 8 mg/dl (7-18); CALCIUM 8.8 mg/dl (8.5-10.1); CARBON DIOXIDE 29 mmol/L (21-32); CREATININE 1.07 mg/dl (0.60-1.40); GLUCOSE 147 mg/dl (70-99); PHOSPHORUS 3.3 mg/dl (2.5-4.9); POTASSIUM 4.8 mmol/L (3.5-5.1); SODIUM 138 mmol/L (136-145)
== END | disposition home or self-care (01) ==
LOC: C.LAB 10:42
PROVIDERS: ATTEND Internal Medicine Nephrology
DX: N18.3 Chronic kidney disease, stage 3 (moderate) (principal)

== ENCOUNTER 2019-04-14 06:33 | Inpatient (IN) ==
--- NOTE | 2019-03-29 15:55 | PAT Medication Instructions ---
Medication Instructions Date of Service March 29, 2019 Home Medications Medication Instructions Recorded tamsulosin 0.4 mg capsule 0.4 mg PO BID 90 Days #180 cap 01/13/19 celecoxib 200 mg capsule 200 mg PO DAILY #30 cap 02/04/19 paroxetine HCl 20 mg tablet 20 mg PO DAILY #90 tab 03/28/19 albuterol sulfate 90 mcg/actuation aerosol inhaler 2 puffs INH UD PRN aspirin 81 mg tablet,delayed release 162 mg PO DAILY budesonide-formoterol HFA 160 mcg-4.5 mcg/actuation aerosol inhaler 2 puffs INH BID cinnamon bark 500 mg capsule 2,000 mg PO DAILY esomeprazole magnesium 40 mg capsule,delayed release 40 mg PO BID hydrocodone-homatropine 5 mg-1.5 mg/5 mL oral syrup 5 ml PO UD PRN insulin degludec 200 unit/mL (3 mL) subcutaneous pen 76 units SQ HS metoprolol succinate 25 mg capsule sprinkle, ext. release 24 hr 25 mg PO QAM ondansetron 4 mg disintegrating tablet 4 mg PO Q6H PRN pregabalin 100 mg capsule 100 mg PO BID ranitidine HCl 150 mg capsule 150 mg PO BID tamsulosin 0.4 mg capsule 0.4 mg PO BID desoximetasone 0.25 % topical cream 1 appln TOP USEASDIRECTD insulin aspart U-100 100 unit/mL (3 mL) subcutaneous pen 150 units SQ USEASDIRECTD nitroglycerin 0.4 mg sublingual tablet 0.4 mg SL USEASDIRECTD PRN celecoxib 200 mg capsule 200 mg PO DAILY Pain Medicine 1 dose PO UD PRN Pain Rub / Roller 1 dose TOPICAL UD PRN atorvastatin 40 mg PO HS bismuth subsalicylate [Anti-Diarrheal] 262 mg PO UD PRN potassium chloride [Klor-Con 10] 20 meq PO BID promethazine 25 mg PO UD PRN torsemide 40 mg PO QAM trazodone 50 mg PO HS paroxetine HCl 20 mg tablet 20 mg PO DAILY Continue as directed nitroglycerin 0.4 mg sublingual tablet 0.4 mg SL USEASDIRECTD PRN ASK your surgeon for instructions celecoxib 200 mg capsule 200 mg PO DAILY Pain Medicine 1 dose PO UD PRN STOP taking 2 weeks before surgery If surgery is within 2 weeks, stop taking as soon as possible. cinnamon bark 500 mg capsule 2,000 mg PO DAILY STOP taking 24 hours before surgery desoximetasone 0.25 % topical cream 1 appln TOP USEASDIRECTD Pain Rub / Roller 1 dose TOPICAL UD PRN DO NOT take the morning of surgery insulin aspart U-100 100 unit/mL (3 mL) subcutaneous pen 150 units SQ USEASDIRECTD hydrocodone-homatropine 5 mg-1.5 mg/5 mL oral syrup 5 ml PO UD PRN bismuth subsalicylate [Anti-Diarrheal] 262 mg PO UD PRN potassium chloride [Klor-Con 10] 20 meq PO BID torsemide 40 mg PO QAM Take morning of surgery With a small sip of water, OTHERWISE NOTHING TO EAT OR DRINK AFTER MIDNIGHT: albuterol sulfate 90 mcg/actuation aerosol inhaler 2 puffs INH UD PRN (if needed, and bring with you to the hospital) aspirin 81 mg tablet,delayed release 162 mg PO DAILY budesonide-formoterol HFA 160 mcg-4.5 mcg/actuation aerosol inhaler 2 puffs INH BID esomeprazole magnesium 40 mg capsule,delayed release 40 mg PO BID metoprolol succinate 25 mg capsule sprinkle, ext. release 24 hr 25 mg PO QAM ondansetron 4 mg disintegrating tablet 4 mg PO Q6H PRN (if needed) pregabalin 100 mg capsule 100 mg PO BID ranitidine HCl 150 mg capsule 150 mg PO BID tamsulosin 0.4 mg capsule 0.4 mg PO BID promethazine 25 mg PO UD PRN (if needed) paroxetine HCl 20 mg tablet 20 mg PO DAILY Take evening before surgery albuterol sulfate 90 mcg/actuation aerosol inhaler 2 puffs INH UD PRN (if needed) budesonide-formoterol HFA 160 mcg-4.5 mcg/actuation aerosol inhaler 2 puffs INH BID esomeprazole magnesium 40 mg capsule,delayed release 40 mg PO BID hydrocodone-homatropine 5 mg-1.5 mg/5 mL oral syrup 5 ml PO UD PRN (if needed) insulin degludec 200 unit/mL (3 mL) subcutaneous pen 76 units SQ HS ondansetron 4 mg disintegrating tablet 4 mg PO Q6H PRN (if needed) pregabalin 100 mg capsule 100 mg PO BID ranitidine HCl 150 mg capsule 150 mg PO BID tamsulosin 0.4 mg capsule 0.4 mg PO BID insulin aspart U-100 100 unit/mL (3 mL) subcutaneous pen 150 units SQ USEASDIRECTD atorvastatin 40 mg PO HS bismuth subsalicylate [Anti-Diarrheal] 262 mg PO UD PRN (if needed) potassium chloride [Klor-Con 10] 20 meq PO BID promethazine 25 mg PO UD PRN (if needed) trazodone 50 mg PO HS Other Notes If you have any questions please call us at [phone] or [phone] or [phone] or [phone]
--- NOTE | 2019-03-30 10:21 | Anesthesiology Consultation ---
Date of Service March 30, 2019 neuropathy in upper and lower extremities. per patient, blood sugars run high often on the 400s. Dr. Ulloa is aware. Assessment & Plan (1) Encounter for pre-operative examination: Cardiology clearance 06/14/2018: Earlier this summer, the patient was much more active and did not experience any limiting cardiopulmonary symptoms. Although he does experience some exertional dyspnea ever responds quickly to his rescue inhaler -- this is consistent with his COPD. Also, patient has a chronic atypical chest pain syndrome which is noncardiac. Based on his normal biventricular systolic function, normal EKG tracing, and minimal coronary artery disease in 2016 -- patient is a low to intermediate cardiac surgical risk for his upcoming L-spine surgery. Patient was advised to take his usual dose of Toprol XL and his inhalers the morning of surgery. There is no need for further cardiac workup at this time. CHECK BSG AM DOS Chart Review Chart Review: Acceptable Risk for Surgery and Patient seen in Pre Admission Testing Teaching & Discussion Instructed NPO after midnight before surgery, except medications with 15 cc of water. Medication instructions provided according to the PAT guidelines. Also discussed proper usage of inhalers--patient has been using Symbicort PRN and no Ventolin. Instructed to use Symbicort BID as prescribed and Ventolin up to 4 times daily as needed. History Surgery Operation Date: 04/14/19 08:15 Proposed Procedures p L4-L5 Laminectomy and Fusion; L5-S1 Posterior Lumbar Interbody Fusion - Kolton Ulloa, Height/Weight Height: 6 ft Weight: 128.4 kg Allergies Allergy/AdvReac Type Severity Reaction Status Date / Time codeine Allergy Unknown PRURITIS, Verified 04/14/19 07:04 HIVES Iodinated Contrast Media Allergy Unknown HIVES Verified 04/14/19 07:04 iodine Allergy Unknown HIVES WITH Verified 04/14/19 07:04 TOPICAL IODINE meperidine Allergy Unknown HIVES Verified 04/14/19 07:04 spironolactone Allergy Unknown GROWING Verified 04/14/19 07:04 BREASTS amoxicillin AdvReac Unknown GI SYMPTOMS Verified 04/14/19 07:04 clavulanic acid AdvReac Unknown GI SYMPTOMS Verified 04/14/19 07:04 meloxicam AdvReac Unknown Diarrhea Verified 04/14/19 07:04 metformin AdvReac Unknown severe Verified 04/14/19 07:04 diarrhea, cramping coban AdvReac Intermediate Rash Uncoded 04/14/19 07:14 adhesives AdvReac skin tears Uncoded 04/14/19 07:13 Medications Home Medications Medication Instructions Recorded Confirmed Last Taken albuterol sulfate 90 mcg/actuation 2 puffs INH UD PRN 12/03/18 04/14/19 04/13/19 16:00 aerosol inhaler aspirin 81 mg tablet,delayed 81 mg PO DAILY tab 12/03/18 04/14/19 04/14/19 05:30 release blood sugar diagnostic #10 ea 12/03/18 04/13/19 Unknown blood-glucose sensor #3 ea 12/03/18 04/13/19 Unknown budesonide-formoterol HFA 160 2 puffs INH BID 12/03/18 04/14/19 04/14/19 05:30 mcg-4.5 mcg/actuation aerosol inhaler cinnamon bark 500 mg capsule 2,000 mg PO DAILY cap 12/03/18 04/14/19 04/10/19 19:30 esomeprazole magnesium 40 mg 40 mg PO BID cap 12/03/18 04/13/19 04/14/19 05:30 capsule,delayed release hydrocodone-homatropine 5 mg-1.5 5 ml PO UD PRN ml 12/03/18 04/14/19 Unknown mg/5 mL oral syrup insulin degludec 200 unit/mL (3 76 units SQ HS ml 12/03/18 04/14/19 04/13/19 21:00 mL) subcutaneous pen lancets #50 ea 12/03/18 04/13/19 Unknown metoprolol succinate 25 mg capsule 25 mg PO QAM 12/03/18 04/13/19 04/14/19 05:30 sprinkle, ext. release 24 hr ondansetron 4 mg disintegrating 4 mg PO Q6H PRN 12/03/18 04/14/19 04/13/19 21:00 tablet pen needle, diabetic 32 gauge x #10 ea 12/03/18 04/13/19 Unknown 32" pregabalin 100 mg capsule 100 mg PO BID 12/03/18 04/13/19 04/14/19 05:30 ranitidine HCl 150 mg capsule 150 mg PO BID 12/03/18 04/13/19 04/14/19 05:30 tamsulosin 0.4 mg capsule 0.4 mg PO BID 90 Days #180 cap 01/13/19 04/13/19 04/14/19 05:30 desoximetasone 0.25 % topical cream 1 appln TOP USEASDIRECTD gm 02/02/19 04/14/19 Unknown insulin aspart U-100 100 unit/mL 40 units SQ USEASDIRECTD ml 02/02/19 04/14/19 04/13/19 21:00 (3 mL) subcutaneous pen nitroglycerin 0.4 mg sublingual 0.4 mg SL USEASDIRECTD PRN tab 02/02/19 04/14/19 Unknown tablet celecoxib 200 mg capsule 200 mg PO DAILY #30 cap 02/04/19 04/14/19 04/13/19 21:00 atorvastatin 40 mg PO HS 03/25/19 04/14/19 04/13/19 21:00 bismuth subsalicylate 262 mg PO UD PRN 03/25/19 04/14/19 Unknown [Anti-Diarrheal] potassium chloride [Klor-Con 10] 20 meq PO BID 03/25/19 04/14/19 04/13/19 21:00 promethazine 25 mg PO UD PRN 03/25/19 04/14/19 Unknown torsemide 40 mg PO QAM 03/25/19 04/14/19 04/13/19 08:00 trazodone 50 mg PO HS 03/25/19 04/14/19 04/13/19 21:00 paroxetine HCl 20 mg tablet 20 mg PO DAILY #90 tab 03/28/19 04/14/19 04/13/19 06:30 Active Medications Generic Name Dose Route Start Last Admin Trade Name Freq PRN Reason Stop Dose Admin Sodium Chloride 1,000 mls @ 15 mls/hr 04/14/19 06:00 04/14/19 07:29 Nss 1000ml IV 04/15/19 05:59 15 mls/hr .Q24H CHUCKY Administration Acetaminophen 1,000 mg in 100 mls @ 400 mls/hr 04/14/19 06:00 04/14/19 07:28 Ofirmev IV 04/14/19 23:59 400 mls/hr PREOP CHUCKY Administration Past Medical History Medical History Acid reflux Arthritis Asthma CAD (coronary artery disease) Mild nonobstructive. Luminal irregularities only noted on 2016 cath. Chest pain OCC -- cardiology aware, felt 2/2 reflux esophagitis. Pt states he was instructed by Dr. Talbert to use nitroglycerin for relief. 2016 cath showed only luminal irregularities. Chronic kidney disease Claustrophobia COPD (chronic obstructive pulmonary disease) Rx'd Symbicort BID but not using consistently; using for rescue instead of Ventolin. Pt educated on proper usage of inhalers. Degenerative disc disease Diabetes Diarrhea FREQUENT OVER LAST FEW MONTHS Frequent falls Heart palpitations Hyperlipidemia Obesity Sleep apnea CPAP Exercise / Class Metabolic Activity III < 4 Walking/Shop/Light housework (+SOB with ambulation on flat surface, winded very easily.) Past Family History Family History Mother Cancer uterine Family history of diabetes mellitus Past Surgical History Surgical History History of anesthesia reaction IN SLOW TO WAKE UP FROM SURGERY, NO LONGER HAS PROBLEM History of back surgery "T5 AND T7" History of cardiac cath 2-3 YR AGO - [facility] - NO FINDINGS History of carpal tunnel surgery of left wrist History of cholecystectomy History of colonoscopy History of elbow surgery BILAT History of left inguinal hernia REPAIR History of neck surgery HARDWARE IN History of shoulder surgery R Hx of appendectomy Past Anesthesia History No Hx of Anesthesia Complications and No Family Hx of Anesthesia Complications History of PONV No Hx of PONV and No Hx of Motion Sickness Social History Smoking Status: Former smoker Do You Dip or Chew Tobacco: No Smoking End Date: QUIT 7 YRS AGO Hx Alcohol Use: No Hx Substance Use: No substance use type: prescription drug Review of Systems Pt denies any recent chest pain, cough, fever or URI. +worsened SOB, +seasonal allergies, +heart palpitations Physical Exam Vital Signs BP: 119/78 P: 66bpm SPO2: 95% RA T: 98.4 F R: 20 Constitutional + obese ENMT Mouth: + chipped teeth (one lower L molar); no dental restorations and no loose teeth Thyromental Distance: > or= 3.5 Finger Breadths (3.5) Mallampati Class: IV Neck + short neck, + thick neck and + limited neck extension (limited by pain) Respiratory normal respiratory effort Auscultation: lungs clear to auscultation bilaterally; no crackles, no rhonchi and no wheezes Cardiovascular Rate/Rhythm: regular rate and regular rhythm Heart Sounds: no murmur Vessels: no carotid bruit Extremities: no edema Testing Laboratory Results 03/30/19 11:50 03/30/19 11:50 PT 10.5 Seconds (9.0-12.0) 03/30/19 11:50 INR 1.0 (0.9-1.1) 03/30/19 11:50 APTT 25.6 Seconds (21.0-31.0) 03/30/19 11:50 Blood Type O Negative 03/30/19 11:50 Antibody Screen NEGATIVE 03/30/19 11:50 04/14/19 06:52 POC Glucose 188 H A1C 12/20/18 = 8.1% (surgeon's office made aware) Electrocardiogram Date: 03/30/19 Findings: + NSR @ (62) Compared with EKG of 01/22/2017, nonspecific T wave abnormality, improved in inferior leads. T wave inversion no longer evident in anterior leads. Chest X-Ray Date: 03/30/19 FINDINGS: PA and lateral chest radiographs are compared to study dated 01/20/2017. The cardiomediastinal silhouette is unremarkable. The lungs and pleural spaces are clear. There is no pneumothorax. The bony thorax appears int act. Fusion hardware is noted in the lower cervical spine. IMPRESSION: No active disease in the chest. Echocardiogram Date: 01/16/17 EF: 60-65% Left ventricular size wall motion and systolic function are normal. There is mild concentric LVH. Grade 1 diastolic dysfunction. No significant valvular p athology. Cardiac Catheterization Date: 06/04/15 LM: normal. splits into trifurcation with LAD, large Ramus, LCx. Minimal luminal irregularities throughout. LAD: normal. Minimal luminal irregularities. LCx: normal. Minimal luminal irregularities. Ramus: normal. RCA: normal. LVgram: limited. LVEF approximately 65-70%.
--- NOTE | 2019-03-30 12:10 | XRay Report ---
TWO VIEW CHEST CLINICAL HISTORY: Preoperative examination. FINDINGS: PA and lateral chest radiographs are compared to study dated 01/20/2017. The cardiomediastin al silhouette is unremarkable. The lungs and pleural spaces are clear. There is no pneumothorax. The bony thorax appears intact. Fusion hardware is noted in the lower cervical spine. IMPRESSION: No active disease in the chest. Electronically signed by: Danish Steen M.D. 03/30/2019 12:09 PM
[2019-03-30 12:31] LABS: Basophils # (auto) 0.04 K/uL (0-0.2); Basophils % (auto) 0.6 %; Eosinophils # (auto) 0.12 K/uL (0-0.5); Eosinophils % (auto) 1.9 %; Hematocrit (blood only) 45.1 % (42-52); Hemoglobin 15.3 g/dL (14.0-18.0); Immature Granulocytes # (auto) 0.01 K/uL (0.00-0.02); Immature Granulocytes % (auto) 0.2 %; Lymphocytes # (auto) 2.33 K/uL (1.2-3.4); Lymphocytes % (auto) 37.3 %; Mean Corpuscular Hgb Conc 33.9 g/dL (32-36); Mean Corpuscular Volume 94.4 fL (80-100); Mean Platelet Volume 10.3 fL (7.4-10.4); Monocytes # (auto) 0.65 K/uL (0.11-0.59); Monocytes % (auto) 10.4 %; Neutrophils % (auto) 49.6 %; Platelet Count 213 K/uL (130-400); RDW Coefficient of Variation 12.8 % (11.5-14.5); RDW Standard Deviation 43.9 fL (36.4-46.3); Red Blood Count 4.78 M/uL (4.7-6.1); White Blood Count 6.25 K/uL (4.8-10.8)
[2019-03-30 12:47] LABS: Partial Thromboplastin Ratio 0.9; Partial Thromboplastin Time 25.6 Seconds (21.0-31.0); Prothrombin Time 10.5 Seconds (9.0-12.0)
[2019-03-30 12:50] LABS: BUN Creatinine Ratio 10.7 (10-20); Calcium 8.9 mg/dl (8.5-10.1); Creatinine Clr Calc Pharmacy 96.3 ml/min; Est GFR (African American) 78.4; Est GFR (Non-African American) 67.7; Potassium 4.4 mmol/L (3.5-5.1)
--- NOTE | 2019-04-13 11:20 | History and Physical Report ---
DATE OF ADMISSION: 04/14/2019 He is being preoped for a laminectomy L4-L5 and PLIF procedure L5-S1. CHIEF COMPLAINT: Back pain, lower extremity difficulty, paresthesias, inability to stand upright. PAST MEDICAL HISTORY: Obesity, diabetes, hypertension, rheumatoid arthritis, high cholesterol, kidney disease and ulcer disease. PAST SURGICAL HISTORY: Include spine surgery in the cervical spine in 2006, cholecystectomy, elbow surgery, hernia repair, back surgery in 1987. ALLERGIES: AMOXICILLIN, CODEINE, IODINE. FAMILY HISTORY: Heart disease, diabetes. SOCIAL HISTORY: He is . No alcohol, tobacco, quit several years ago. REVIEW OF SYSTEMS: Denies any blurred vision, double vision, tinnitus or vertigo. Ear, nose and throat negative. Denies any chest pain, palpitations. No nausea, vomiting. No urgency, frequency. He has frequent urination. Skin rashes positive. He has lightheadedness, dizziness, numbness and tingling, stiffness, muscle cramps, muscle weakness and gait abnormality. No immune deficiency. MEDICATIONS: Numerous, reviewed and I held off on dictation because of the length of the medications. They are scanned and tabulated in the computer. PHYSICAL EXAMINATION: GENERAL: He is 6 feet 2 inches, 180 pounds. VITAL SIGNS: Blood pressure 140/80, pulse 80, respirations 16. HEENT: Pupils react to light and accommodation. Ear, nose and throat clear. CARDIAC: Normal S1, S2, no S3. LUNGS: Clear to auscultation. No rales, rhonchi, wheezing. ABDOMEN: Soft, nontender, bowel sounds present in all quadrants. He has weakness with dorsiflexion, plantarflexion, decreased range of motion. No upper motor neuron issues. Images demonstrate a grade 1 spondylolisthesis and spinal stenosis. IMPRESSION: Stenosis and listhesis, lumbar spine. PLAN: Includes laminectomy and fusion L4-L5 and PLIF procedure.
[~2019-04-14 06:33] MED LIST changes: -CALC1CRE2 TOP; +CEFAZOLIN 3000MG 72.5 ML IV SCH; -CINN500T PO; -ERGO500011 PO; -INSU1INJ33 SC; -LORA-741 PO; -LPR50X PO; -LPT/40 PO; +LR 15ML/HR IV SCH; -MAGN1TAB19 PO; -MORP1TAB11 PO; -NOVOLOG SQ; -NTRGSL/4 UT; -NXM/40 PO; -OXYC-57 PO; -PARO1TAB27 PO; -POTA-639 PO; -PROM25TA16 PO; -RANI150T3 PO; -SYMIN160 INH; -TAMS0.4C38 PO; -TORS20TA3 PO; -TRAZ50TA35 PO; -VNTHFA/IN INH; -ZFRODT4HP PO
[2019-04-14] MEDS: ACETAMINOPHEN 1,000 MG/100 ML VIAL IV SCH (07:28)
[2019-04-14] MEDS: SODIUM CHLORIDE 0.9% 1,000 ML IV SCH ×2 (07:29→08:11)
[2019-04-14] MEDS ORDERED: ROCURONIUM BROMIDE 10 MG/ML 5 ML VIAL ONE (07:39)
[2019-04-14] MEDS ORDERED: ONDANSETRON INJ 2 MG/ML 2 ML VIAL ONE ×2 (07:39→09:03)
[2019-04-14] MEDS ORDERED: GLYCOPYRROLATE 0.2 MG/ML VIAL ONE ×2 (07:39→07:44)
[2019-04-14] MEDS ORDERED: PROPOFOL IV EMULSION 10 MG/ML 20 ML VIAL IV ONE (07:39)
[2019-04-14] MEDS ORDERED: LIDOCAINE HCL 2% 2 ML VIAL/AMP(20MG/ML) INFIL ONE (07:39)
[2019-04-14] MEDS ORDERED: DEXAMETHASONE SOD INJ 4 MG/ML VIAL ONE (07:39)
[2019-04-14] MEDS ORDERED: NEOSTIGMINE METHYLSULFATE 5 MG/5 ML SYR ONE (07:39)
[2019-04-14] MEDS ORDERED: MIDAZOLAM HCL 1 MG/ML 2ML VIAL ONE (07:40)
[2019-04-14] MEDS ORDERED: fentaNYL citrate 100 MCG/2 ML VIAL ONE ×5 (07:40→12:43)
--- NOTE | 2019-04-14 07:46 | History & Physical Bridge Note ---
Date of Service April 14, 2019 History & Physical Bridge Note I have examined the patient, reviewed the History & Physical and in the interval since the performance of the History & Physical I have noted the following changes of clinical significance: PROCEDURE; LAMINECTOMY AND FUSION L4-5 AND PLIF L5-S1
[2019-04-14] MEDS ORDERED: VANCOMYCIN HCL 1000MG/20ML VIAL ONE (07:53)
[2019-04-14] MEDS ORDERED: BUPIVACAINE 0.5 % 5 MG/1 ML MPF 30ML VIAL ONE (07:54)
[2019-04-14] MEDS ORDERED: GELATIN SPONGE SZ 100 ONE (07:54)
[2019-04-14] MEDS ORDERED: BACITRACIN INJ 50,000 UNIT VIAL ONE (07:54)
[2019-04-14] MEDS ORDERED: THROMBIN FOR SOLN 20000 UNIT KIT ONE (07:54)
[2019-04-14] MEDS ORDERED: EPINEPHrine INJ 1 MG/ML AMP ONE (07:55)
[2019-04-14] MEDS ORDERED: ALBUTEROL HFA INHALER 8.5 GM ONE (08:28)
[2019-04-14] MEDS ORDERED: BACITRACIN INJ 50,000 UNIT VIAL IR ONE (09:38)
[2019-04-14] MEDS ORDERED: THROMBIN FOR SOLN 20000 UNIT KIT EXT SCH (09:45)
[2019-04-14] MEDS: GELATIN SPONGE SZ 100 EXT PRN ×2 (09:50→10:41)
[2019-04-14] MEDS: BUPIVACAINE 0.25% 30 ML VIAL INFIL SCH ×2 (10:04→10:06)
[2019-04-14] MEDS ORDERED: CEFAZOLIN 1000MG 1,000 MG/7.5 ML SYR IV STA (11:47)
--- NOTE | 2019-04-14 11:48 | Fluoroscopy Report ---
FL spine 1V any level HISTORY: Back pain. FLUOROSCOPY TIME: 14 seconds. FINDINGS: Intraoperative fluoroscopy was provided for the lumbar spine. 1 fluoroscopic spot images we re obtained. IMPRESSION: Fluoroscopy provided for a L5-S1 laminectomy and fusion. The above report was generated using voice recognition software. It may contain grammatical, syntax or spelling errors. Electronically signed by: Gaudencio Manley M.D. 04/14/2019 11:46 AM
--- NOTE | 2019-04-14 12:11 | Post Operative Brief Note ---
PG Immediate Post Op with CF Date of Surgery April 14, 2019 Pre & Post Diagnosis Operation Date: 04/14/19 08:15 Pre-Op Diagnosis: Spondylolisthesis Post-Op Diagnosis: Spondylolisthesis I identified the patient and participated in the time-out.: Yes Procedure Operation Date: 04/14/19 08:15 Actual Procedures p L4-S1 Laminectomy;Fusion L4-S1; Instrumentation L5-S1(Not Applicable) - Kolton Ulloa DO Surgeon Kolton Ulloa DO [employer] salma Estimated Blood Loss 600 Findings Consistent with Post-Op Diagnosis Specimens Specimen Description: none per surgeon Drains Sanders Catheter and Hemovac Drain Complications none Disposition Accompanied Patient To Recovery: Yes Overlapping Procedure I was immediately available: during the entire case.
--- NOTE | 2019-04-14 12:31 | Operative Report ---
PG Post Operative Report Pre & Post Diagnosis Operation Date: 04/14/19 08:15 Pre-Op Diagnosis: Spondylolisthesis Post-Op Diagnosis: Spondylolisthesis I identified the patient and participated in the time-out.: Yes Procedure Operation Date: 04/14/19 08:15 Actual Procedures p L4-S1 Laminectomy;Fusion L4-S1; Instrumentation L5-S1(Not Applicable) - Kolton Ulloa DO Surgeon Kolton Ulloa DO Wall[employer] Work[employer] salma Estimated Blood Loss 600 Findings Consistent with Post-Op Diagnosis Specimens No specimens Drains Hemovac Complications 0 Indications Instability lumbar spine progressive pain inability to stand upright and ambulate Description of Procedure Patient was taken to the operating room a general intubated anesthetic provided to the patient placed prone on the Gwyn table. A he was scrubbed prepped and draped sterile. Formal timeout taken Made a skin incision fashion incision dissected down to the L5-S1 and L4-5 levels lumbar spine. The procedure was made difficult because of the patient's morbid obesity. We put in deep self-retaining retractors. Then did pick decompress the neural elements the spinal listhesis was quite evident L5-S1 stenosis situation up at L4-5 we decompress the neural elements 5 S1 L4-5 lumbar spine foraminotomies partial facetectomies. I then instrumented the spine I safely got pedicle screws into the sacrum on the left and L5 on the left. I struggled on the right-hand side with anatomic landmarks very difficult getting screw placement particularly at L5 I tried several times. At the conclusion of the screw placement I felt I had excellent fixation of the pedicle screws both at 5 and the sacrum. The L4 segment of lumbar spine was not unstable did not need any pedicle screw instrumentation because there is no gross instability. Irrigated thoroughly and bone grafted out of the transverse processes of L4-5 and sacrum combination of morselized autograft demineralized bone matrix. Very pleased with the grafting procedure procedure placement of the implants and decompression. We then began our closure over Hemovac drain and vancomycin powder sterile dressings applied the patient returned to PACU improved stable condition there were no apparent comp complications. Sponge and needle count included at the end the procedure and to be accurate. Bone graft used was combination of morselized autograft and demineralized bone matrix I attest to the content of the Intraoperative Record and any orders documented therein. Any exceptions are noted below.
[2019-04-14] MEDS ORDERED: NovoLIN-R INSULIN PER UNIT CHARGE ONE (12:34)
[2019-04-14] MEDS ORDERED: ATROPINE SULFATE 0.1 MG/ML 10ML SYR IV PRN (12:43)
[2019-04-14] MEDS ORDERED: ePHEDrine sulfate 50 MG/ML AMP IV PRN (12:43)
[2019-04-14] MEDS ORDERED: ONDANSETRON INJ 2 MG/ML 2 ML VIAL IV PRN ×2 (12:43→14:30)
[2019-04-14] MEDS ORDERED: INSULIN HUMAN REGULAR PER UNIT 5 UNITS in SYRINGE 0 ML IV STA (12:44)
[2019-04-14] MEDS ORDERED: HYDROmorphone INJ 1 MG/ML SYRINGE ONE (12:44)
[2019-04-14] MEDS: fentaNYL citrate 100 MCG/2 ML VIAL IV PRN ×4 (12:46→13:18)
[2019-04-14] MEDS ORDERED: METOPROLOL TARTRATE 1 MG/ML VIAL IV ONE (13:04)
[2019-04-14] MEDS ORDERED: fentaNYL citrate 100 MCG/2 ML VIAL IV PRN (13:34)
[2019-04-14] MEDS ORDERED: METOPROLOL TARTRATE 1 MG/ML VIAL IV STA (13:38)
--- NOTE | 2019-04-14 14:02 | Anesthesiology Progress Note ---
Date of Service April 14, 2019 Anesthesia Post Procedure Vital Signs Vital Signs: Temp Pulse Pulse Pulse Resp BP BP 04/14/19 13:50 37.4 C 96 H 13 113/77 04/14/19 13:40 95 H 14 123/83 04/14/19 13:30 93 H 15 129/74 04/14/19 13:20 95 H 9 L 143/75 H 04/14/19 13:10 97 H 13 136/91 04/14/19 13:07 106 H 137/102 H 04/14/19 13:00 102 H 14 137/102 H 04/14/19 12:50 99 H 10 L 149/88 H 04/14/19 12:40 108 H 17 142/82 H 04/14/19 12:30 111 H 13 157/92 H 04/14/19 12:20 36.7 C 111 H 8 L 151/87 H 04/14/19 07:33 36.4 C L 72 20 144/88 H Pulse Ox 04/14/19 13:50 93 04/14/19 13:40 93 04/14/19 13:30 94 04/14/19 13:20 93 04/14/19 13:10 94 04/14/19 13:07 04/14/19 13:00 94 04/14/19 12:50 99 04/14/19 12:40 96 04/14/19 12:30 99 04/14/19 12:20 92 04/14/19 07:33 97 Pain Intensity Lower Back: Pain Intensity: 2 Transfer of Care Handoff Completed per policy Notes Mental Status: alert / awake / arousable and participated in evaluation Patient Amnestic to Procedure: Yes Nausea / Vomiting: adequately controlled Pain: adequately controlled Airway Patency, RR, SpO2: stable & adequate BP & HR: stable & adequate Hydration State: stable & adequate Anesthetic Complications: no major complications apparent and Pt Satisfied with anesthetic care
[2019-04-14] MEDS ORDERED: bisacodyL 10 MG SUPP PR PRN (14:30)
[2019-04-14] MEDS ORDERED: ALUMINUM/MAGNESIUM SUSP 30 ML UDC PO PRN (14:30)
[2019-04-14] MEDS ORDERED: NITROGLYCERIN SL 0.4 MG/TAB TAB SL PRN (14:30)
[2019-04-14] MEDS ORDERED: DO NOT ADMINISTER FLU VACCINE PRN (14:30)
[2019-04-14] MEDS ORDERED: NALOXONE HCL 0.4 MG/1 ML VIAL/CARP IV PRN (14:30)
[2019-04-14] MEDS ORDERED: ONDANSETRON 4 MG OD TAB PO PRN (14:30)
[2019-04-14] MEDS ORDERED: METOCLOPRAMIDE HCL INJ 5 MG/ML 2 ML VIAL IV PRN (14:30)
[2019-04-14] MEDS ORDERED: MAGNESIUM HYDROXIDE SUSP 30 ML UDC PO PRN (14:30)
[2019-04-14] MEDS ORDERED: ALBUTEROL HFA 8 GM INHALER INH PRN (14:30)
[2019-04-14] MEDS ORDERED: PROMETHAZINE HCL 12.5 MG in SODIUM CHLORIDE 0.9% 50 ML IV PRN (14:30)
[2019-04-14] MEDS ORDERED: PROMETHAZINE HCL 25 MG TAB PO PRN (14:30)
[2019-04-14] MEDS ORDERED: DO NOT ADMINISTER PNEUMOCOCCAL VACCINE PRN (14:30)
[2019-04-14] MEDS ORDERED: ACETAMINOPHEN 1,000 MG/100 ML VIAL IV PRN (14:30)
[2019-04-14] MEDS ORDERED: BISMUTH SUBSALICYLATE SUSP PO PRN (14:30)
[2019-04-14] MEDS ORDERED: SOD PHOSPHATE/SOD BIPHOSPHATE ENEMA 132 ML BTL PR PRN (14:30)
[2019-04-14] MEDS ORDERED: PHARMACY GLYCEMIC MGMT CONSULT PRN (14:55)
[2019-04-14] MEDS: SODIUM CHLORIDE 0.9% 1000ML 1,000 ML IV SCH (15:06)
[2019-04-14] MEDS: HYDROmorphone INJ 0.5 MG/0.5 ML SYR IV PRN ×2 (15:07→21:37)
[2019-04-14] MEDS ORDERED: INSULIN GLARGINE 100 UNIT/ML VIAL SC STA (15:14)
--- NOTE | 2019-04-14 15:34 | Pharmacy Report ---
Glycemic Control Consultation - Date of Service April 14, 2019 - Scope Scope: Glycemic Pharmacist consulted by Shashi Nazario on 04/14/19 for glycemic control and to write orders per [facility] inpatient glycemic control protocol - Objective Weight: 128.4 kg Accuchecks BSG (last 24hrs): 04/14/19 04/14/19 04/14/19 06:52 08:57 12:24 POC Glucose 188 H 183 H 211 H 04/14/19 04/14/19 13:01 13:44 POC Glucose 231 H 206 H - Recent Pertinent Medications Outpatient Anti-diabetic Regimen: * Tresiba 76u HS, Novolog 20uB, 30uL, 50uD + SSI * A1c = 8.3 % 04/11/19 - Assessment & Plan Assessment & Plan: ASSESSMENT: * Mr. Gomez is a 53yo M type II diabetic. PMHx consistent with obesity, HTN, HLD, among others. His outpt glycemic management is poor as evidenced by his A1C of 8.3%. This seems to be a baseline for him. He received 4mg IV DXM perioperatively. He is ordered a diet. Post-Op BSGs have all been in the 200s. PLAN FOR INPATIENT GLYCEMIC CONTROL: * Basal insulin * Lantus 76u STAT then lantus scale for this evening * BSGs <120 hold lantus * BSGs 120-180 give 20 units * BSGs >180 give 30 units * Bolus insulin * NovoLog per scale ACHS or Q6hrs while NPO * Goal Range: Low 110 mg/dL - High 140 mg/dL * Correction Factor: 10 mg/dL/unit * Nutritional / Prandial insulin per carb ratio of 1 unit per 3 grams CHO consumed * will add 00,04 checks to help ensure euglycemia postoperatively * Please note that the plan above was derived based on current level of insulin resistance and hospital stress. These recommendations are appropriate for inpatient admission only. Plan of care upon discharge will need to be reassessed to avoid potential outpatient hypo/hyperglycemia. Thank you.
[2019-04-14] MEDS ORDERED: PHARMACY GLYCEMIC MGMT CONSULT STA (15:59)
[2019-04-14] MEDS: CEFAZOLIN 2000MG 2,000 MG/15 ML SYR IV SCH (16:10)
[2019-04-14] MEDS: KETOROLAC 30 MG/ML VIAL IV SCH ×2 (16:11→21:21)
[2019-04-14] MEDS: INSULIN ASPART 100 UNITS/ML 3 ML PEN SQ SCH ×3 (16:12→21:40)
[2019-04-14] MEDS ORDERED: Nursing to Pharmacy Communication ONE (17:41)
[2019-04-14] MEDS: OXYCODONE HCL IR 5 MG TAB (IMMEDIATE RELEASE) PO PRN (19:31)
[2019-04-14] MEDS ORDERED: INSULIN DEGLUDEC 76 UNIT SQ SCH (21:00)
[2019-04-14] MEDS ORDERED: INSULIN GLARGINE 100 UNIT/ML VIAL SC ONE (21:00)
[2019-04-14] MEDS ORDERED: PANTOprazole 40 MG TAB PO SCH (21:00)
[2019-04-14] MEDS: BUDESONIDE/FORMOTEROL FUMARATE 160/4.5 60 PUFFS/INHALER INH SCH (21:18)
[2019-04-14] MEDS: TAMSULOSIN HCL 0.4 MG CAP PO SCH (21:19)
[2019-04-14] MEDS: POTASSIUM CHLORIDE 20 MEQ TABCR PO SCH ×2 (21:19→21:39)
[2019-04-14] MEDS: DOCUSATE SODIUM/SENNA 50/8.6MG TAB PO SCH (21:20)
[2019-04-14] MEDS: ATORVASTATIN 40 MG TAB PO SCH (21:20)
[2019-04-14] MEDS: PREGABALIN 100 MG CAP PO SCH (21:36)
[2019-04-14] MEDS: POTASSIUM CHLORIDE 10 MEQ TABCR PO SCH (21:56)
[2019-04-14] MEDS: TRAZODONE HCL 50 MG TAB PO SCH (21:56)
[2019-04-15] MEDS: CEFAZOLIN 2000MG 2,000 MG/15 ML SYR IV SCH ×4 (00:13→23:53)
[2019-04-15] MEDS: OXYCODONE HCL IR 5 MG TAB (IMMEDIATE RELEASE) PO PRN ×3 (00:13→22:21)
[2019-04-15] MEDS ORDERED: CARBOHYDRATES FOR HYPOGLYCEMIA PO PRN (00:15)
[2019-04-15] MEDS ORDERED: GLUCOSE 10 TABS/TUBE PO PRN (00:15)
[2019-04-15] MEDS ORDERED: GLUCAGON FOR INJ 1 MG VIAL IM PRN (00:15)
[2019-04-15] MEDS ORDERED: DEXTROSE 50% 50 ML SYRINGE IV PRN (00:15)
[2019-04-15] MEDS ORDERED: GLUCOSE 40% GEL 15 GM TUBE PO PRN (00:15)
[2019-04-15] MEDS: INSULIN ASPART 100 UNITS/ML 3 ML PEN SQ SCH ×6 (00:39→22:07)
[2019-04-15] MEDS: SODIUM CHLORIDE 0.9% 1000ML 1,000 ML IV SCH (03:53)
[2019-04-15] MEDS: KETOROLAC 30 MG/ML VIAL IV SCH ×2 (04:03→09:16)
[2019-04-15] MEDS: POLYETHYLENE (MIRALAX) 17 GM PACK PO SCH ×4 (05:29→23:57)
--- NOTE | 2019-04-15 05:57 | Hospitalist Consultation ---
Date of Consultation April 15, 2019 History of Present Illness Attending Physician: Kolton Ulloa DO Allergies Allergy/AdvReac Type Severity Reaction Status Date / Time codeine Allergy Unknown PRURITIS, Verified 04/14/19 07:04 HIVES Iodinated Contrast Media Allergy Unknown HIVES Verified 04/14/19 07:04 iodine Allergy Unknown HIVES WITH Verified 04/14/19 07:04 TOPICAL IODINE meperidine Allergy Unknown HIVES Verified 04/14/19 07:04 spironolactone Allergy Unknown GROWING Verified 04/14/19 07:04 BREASTS amoxicillin AdvReac Unknown GI SYMPTOMS Verified 04/14/19 07:04 clavulanic acid AdvReac Unknown GI SYMPTOMS Verified 04/14/19 07:04 meloxicam AdvReac Unknown Diarrhea Verified 04/14/19 07:04 metformin AdvReac Unknown severe Verified 04/14/19 07:04 diarrhea, cramping coban AdvReac Intermediate Rash Uncoded 04/14/19 07:14 adhesives AdvReac skin tears Uncoded 04/14/19 07:13 Home Medications Home Medications Medication Instructions Recorded Confirmed Type albuterol sulfate 90 mcg/actuation 2 puffs INH UD PRN 12/03/18 04/14/19 History aerosol inhaler aspirin 81 mg tablet,delayed 81 mg PO DAILY tab 12/03/18 04/14/19 History release blood sugar diagnostic #10 ea 12/03/18 04/13/19 History blood-glucose sensor #3 ea 12/03/18 04/13/19 History budesonide-formoterol HFA 160 2 puffs INH BID 12/03/18 04/14/19 History mcg-4.5 mcg/actuation aerosol inhaler cinnamon bark 500 mg capsule 2,000 mg PO DAILY cap 12/03/18 04/14/19 History esomeprazole magnesium 40 mg 40 mg PO BID cap 12/03/18 04/13/19 History capsule,delayed release hydrocodone-homatropine 5 mg-1.5 5 ml PO UD PRN ml 12/03/18 04/14/19 History mg/5 mL oral syrup insulin degludec 200 unit/mL (3 76 units SQ HS ml 12/03/18 04/14/19 History mL) subcutaneous pen lancets #50 ea 12/03/18 04/13/19 History metoprolol succinate 25 mg capsule 25 mg PO QAM 12/03/18 04/13/19 History sprinkle, ext. release 24 hr ondansetron 4 mg disintegrating 4 mg PO Q6H PRN 12/03/18 04/14/19 History tablet pen needle, diabetic 32 gauge x #10 ea 12/03/18 04/13/19 History 5/32" pregabalin 100 mg capsule 100 mg PO BID 12/03/18 04/13/19 History ranitidine HCl 150 mg capsule 150 mg PO BID 12/03/18 04/13/19 History tamsulosin 0.4 mg capsule 0.4 mg PO BID 90 Days #180 cap 01/13/19 04/13/19 Rx desoximetasone 0.25 % topical cream 1 appln TOP USEASDIRECTD gm 02/02/19 04/14/19 History insulin aspart U-100 100 unit/mL 40 units SQ USEASDIRECTD ml 02/02/19 04/14/19 History (3 mL) subcutaneous pen nitroglycerin 0.4 mg sublingual 0.4 mg SL USEASDIRECTD PRN tab 02/02/19 04/14/19 History tablet celecoxib 200 mg capsule 200 mg PO DAILY #30 cap 02/04/19 04/14/19 Rx atorvastatin 40 mg PO HS 03/25/19 04/14/19 History bismuth subsalicylate 262 mg PO UD PRN 03/25/19 04/14/19 History [Anti-Diarrheal] potassium chloride [Klor-Con 10] 20 meq PO BID 03/25/19 04/14/19 History promethazine 25 mg PO UD PRN 03/25/19 04/14/19 History torsemide 40 mg PO QAM 03/25/19 04/14/19 History trazodone 50 mg PO HS 03/25/19 04/14/19 History paroxetine HCl 20 mg tablet 20 mg PO DAILY #90 tab 03/28/19 04/14/19 Rx Patient History Medical History Acid reflux Arthritis Asthma CAD (coronary artery disease) Mild nonobstructive. Luminal irregularities only noted on 2016 cath. Chest pain OCC -- cardiology aware, felt 2/2 reflux esophagitis. Pt states he was instructed by Dr. Nitish to use nitroglycerin for relief. 2016 cath showed only luminal irregularities. Chronic kidney disease Claustrophobia COPD (chronic obstructive pulmonary disease) Rx'd Symbicort BID but not using consistently; using for rescue instead of Ventolin. Pt educated on proper usage of inhalers. Degenerative disc disease Diabetes Diarrhea FREQUENT OVER LAST FEW MONTHS Frequent falls Heart palpitations Hyperlipidemia Obesity Sleep apnea CPAP Surgical History History of anesthesia reaction IN SLOW TO WAKE UP FROM SURGERY, NO LONGER HAS PROBLEM History of back surgery "T5 AND T7" History of cardiac cath 2-3 YR AGO - [facility] - NO FINDINGS History of carpal tunnel surgery of left wrist History of cholecystectomy History of colonoscopy History of elbow surgery BILAT History of left inguinal hernia REPAIR History of neck surgery HARDWARE IN History of shoulder surgery R Hx of appendectomy Family History Mother Cancer uterine Family history of diabetes mellitus Social History Preferred Language: Tajik Communication Ability: Effective Physical Optics Teacher Required: No Beliefs That Will Affect Care: Jain Jain Beliefs: SIKHISM marital status: / Current Living Situation: Parent Current Living Situation Comment: cares for an autistic son current occupational status: unemployed Other Information That Helps Us Care for You: Yes (WOULD LIKE TO SPEAK TO SOMEONE REGARDING HELP AT HOME) Feels Safe at Home: Yes Smoking Status: Former smoker Do You Dip or Chew Tobacco: No ; Smoking End Date: QUIT 7 YRS AGO ; Hx Alcohol Use: No Hx Substance Use: No Results & Data Vital Signs (Past 12 Hours) Vital Signs Temp Pulse Pulse Resp BP Pulse Ox 04/15/19 04:07 37.5 C 96 H 18 135/64 91 04/15/19 00:30 92 04/15/19 00:04 36.4 C L 79 20 109/70 97 04/14/19 22:05 82 15 98 PG Care Time/CCT Total # of Minutes Spent Total Time Spent with Patient: Total time spent is greater than 50% in coordination of care (as documented) at patient's floor/unit and/or counseling patient:
[2019-04-15 06:05] LABS: Basophils # (auto) 0.02 K/uL (0-0.2); Basophils % (auto) 0.2 %; Eosinophils # (auto) 0.08 K/uL (0-0.5); Eosinophils % (auto) 0.6 %; Hematocrit (blood only) 34.8 % (42-52); Hemoglobin 11.7 g/dL (14.0-18.0); Immature Granulocytes # (auto) 0.03 K/uL (0.00-0.02); Immature Granulocytes % (auto) 0.2 %; Lymphocytes # (auto) 1.34 K/uL (1.2-3.4); Lymphocytes % (auto) 10.5 %; Mean Corpuscular Hemoglobin 31.9 pg (25-34); Mean Corpuscular Hgb Conc 33.6 g/dL (32-36); Mean Corpuscular Volume 94.8 fL (80-100); Mean Platelet Volume 10.1 fL (7.4-10.4); Neutrophils # (auto) 9.87 K/uL (1.4-6.5); Neutrophils % (auto) 77.5 %; Platelet Count 185 K/uL (130-400); RDW Standard Deviation 45.2 fL (36.4-46.3); Red Blood Count 3.67 M/uL (4.7-6.1); White Blood Count 12.74 K/uL (4.8-10.8)
[2019-04-15 06:41] LABS: BUN Creatinine Ratio 11.4 (10-20); Calcium 7.9 mg/dl (8.5-10.1); Creatinine Clr Calc Pharmacy 86.3 ml/min; Est GFR (African American) 68.6; Est GFR (Non-African American) 59.2; Potassium 4.2 mmol/L (3.5-5.1)
--- NOTE | 2019-04-15 08:02 | Anesthesiology Progress Note ---
Date of Service April 15, 2019 Anesthesia Post Procedure Vital Signs Vital Signs: Temp Pulse Pulse Pulse Pulse Pulse Resp 04/15/19 07:25 37.3 C 99 H 13 04/15/19 04:07 37.5 C 96 H 18 04/15/19 00:30 04/15/19 00:04 36.4 C L 79 20 04/14/19 22:05 82 15 04/14/19 17:11 36.4 C L 84 18 04/14/19 16:15 88 17 04/14/19 15:21 82 22 04/14/19 15:15 36.5 C 91 H 16 04/14/19 14:30 88 20 04/14/19 14:10 36.8 C 91 H 18 04/14/19 13:50 37.4 C 96 H 13 04/14/19 13:40 95 H 14 04/14/19 13:30 93 H 15 04/14/19 13:20 95 H 9 L 04/14/19 13:10 97 H 13 04/14/19 13:07 106 H 04/14/19 13:00 102 H 14 04/14/19 12:50 99 H 10 L 04/14/19 12:40 108 H 17 04/14/19 12:30 111 H 13 04/14/19 12:20 36.7 C 111 H 8 L BP BP Pulse Ox 04/15/19 07:25 113/74 92 04/15/19 04:07 135/64 91 04/15/19 00:30 92 04/15/19 00:04 109/70 97 04/14/19 22:05 98 04/14/19 17:11 107/69 97 04/14/19 16:15 121/77 98 04/14/19 15:21 97 04/14/19 15:15 103/67 90 04/14/19 14:30 112/77 95 04/14/19 14:10 115/71 94 04/14/19 13:50 113/77 93 04/14/19 13:40 123/83 93 04/14/19 13:30 129/74 94 04/14/19 13:20 143/75 H 93 04/14/19 13:10 136/91 94 04/14/19 13:07 137/102 H 04/14/19 13:00 137/102 H 94 04/14/19 12:50 149/88 H 99 04/14/19 12:40 142/82 H 96 04/14/19 12:30 157/92 H 99 04/14/19 12:20 151/87 H 92 Pain Intensity Lower Back: Pain Intensity: 8 Notes Mental Status: alert / awake / arousable and participated in evaluation Patient Amnestic to Procedure: Yes Nausea / Vomiting: adequately controlled Pain: adequately controlled Airway Patency, RR, SpO2: stable & adequate BP & HR: stable & adequate Hydration State: stable & adequate Anesthetic Complications: no major complications apparent
--- NOTE | 2019-04-15 08:06 | Orthopedic Progress Note ---
Date of Service April 15, 2019 Assessment & Plan (1) Postoperative pain after spinal surgery: Up and ambulatory today. Most caution with bending stooping lifting walks is all that I want the patient to be performing. He did needs strict dietary control with a strong weight loss program will initiate today Tentative discharge home tomorrow with home health services Present on Admission?: Yes Subjective Moderate complaints of pain. No shortness of breath chest pain bowel bladder incontinence negative. Review of Systems Review of Systems: No fever sweats chills no neurological deficits Results & Data Vital Signs (Past 12 Hours) Vital Signs Temp Pulse Pulse Pulse Resp BP Pulse Ox 04/15/19 07:25 37.3 C 99 H 13 113/74 92 04/15/19 04:07 37.5 C 96 H 18 135/64 91 04/15/19 00:30 92 04/15/19 00:04 36.4 C L 79 20 109/70 97 04/14/19 22:05 82 15 98 PG Care Time/CCT Total # of Minutes Spent Total Time Spent with Patient: Total time spent is greater than 50% in coordination of care (as documented) at patient's floor/unit and/or counseling patient:
[2019-04-15] MEDS ORDERED: TORSEMIDE 10 MG TAB PO SCH (09:00)
[2019-04-15] MEDS: BUDESONIDE/FORMOTEROL FUMARATE 160/4.5 60 PUFFS/INHALER INH SCH ×2 (09:04→21:56)
[2019-04-15] MEDS: PARoxetine HCl 20 MG TAB PO SCH (09:07)
[2019-04-15] MEDS: METOPROLOL SUCC 25MG EXT REL TAB PO SCH (09:07)
[2019-04-15] MEDS: TORSEMIDE 20 MG TAB PO SCH (09:07)
[2019-04-15] MEDS: ASPIRIN 81 MG ECTAB PO SCH (09:07)
[2019-04-15] MEDS: POTASSIUM CHLORIDE 10 MEQ TABCR PO SCH ×2 (09:07→21:56)
[2019-04-15] MEDS: PREGABALIN 100 MG CAP PO SCH ×2 (09:07→21:56)
[2019-04-15] MEDS: TAMSULOSIN HCL 0.4 MG CAP PO SCH ×2 (09:07→21:56)
[2019-04-15] MEDS: FAMOTIDINE 20 MG TAB PO SCH ×2 (09:15→21:56)
[2019-04-15] MEDS: HYDROmorphone INJ 0.5 MG/0.5 ML SYR IV PRN ×3 (12:22→23:41)
--- NOTE | 2019-04-15 12:26 | Consultation ---
Date of Consultation April 15, 2019 Assessment & Plan (1) Post-operative state: s/p L4-S1 laminectomy and fusion Pain control, dvt proph per primary Monitor for acute blood loss - hgb 11 from 15 pre surgery repeat CBC am (2) CKD (chronic kidney disease): avoid nephrotoxins where possible prp am (3) Reflux esophagitis: Continue pantoprazole, ranitidine (4) Hypertension: continue home metoprolol (5) Diabetes: DM II with neuropathy continue Lyrica glycemic consult (6) Abdominal pain: Will get limited abd us of the left abdomen - no warmth or induration in that area (7) Bipolar disorder: Continue paroxetine, trazadone (8) Mild CAD: continue nitro prn, metoprolol, statin, ASA (9) Edema: Continue torsemide (10) COPD (chronic obstructive pulmonary disease): Continue home inhalers Supervising Physician Co-Signing Physician Notes DUring my face to face encounter with the patient, I obtained a history and physical examination on the patient. I discussed case with APC, and answered all of the patient's questions. I reviewed above note and agree with it except for the following: Patient was complaining of abdminal pain. No rebound tenderness, ultrasound was negative for an any emergent indication of surgery. Patient in no distress, but is complaining of constipation. Patient will be ordered stool laxative. Patient may require lactulose in am, if still no BM by then. History of Present Illness Mr. Gomez is having back pain extending into his legs. He is also having left lower abdominal pain over the area he had a previous hernia procedure. It is burning and constant. He has had pain in this area intermittently before but it has become more painful and persistent since he came out of his back surgery. He denies sob, chest pain, nausea, or changes in bowels or bladder. Pmhx: DMII, polyneuropathy, htn, dyslipidemia, sleep apnea, obesity, chronic leg edema, CAD, pulmonary hypertension, CKD, COPD, bipolar disorder Social: disabled, lives with and cares for autistic son, , 40 pyh quit smoking 8 years ago Family hx: mother and had DMII, father from heart disease, multiple family members with bipolar disorder Attending Physician: Kolton Ulloa, Allergies Allergy/AdvReac Type Severity Reaction Status Date / Time codeine Allergy Unknown PRURITIS, Verified 04/14/19 07:04 HIVES Iodinated Contrast Media Allergy Unknown HIVES Verified 04/14/19 07:04 iodine Allergy Unknown HIVES WITH Verified 04/14/19 07:04 TOPICAL IODINE meperidine Allergy Unknown HIVES Verified 04/14/19 07:04 spironolactone Allergy Unknown GROWING Verified 04/14/19 07:04 BREASTS amoxicillin AdvReac Unknown GI SYMPTOMS Verified 04/14/19 07:04 clavulanic acid AdvReac Unknown GI SYMPTOMS Verified 04/14/19 07:04 meloxicam AdvReac Unknown Diarrhea Verified 04/14/19 07:04 metformin AdvReac Unknown severe Verified 04/14/19 07:04 diarrhea, cramping coban AdvReac Intermediate Rash Uncoded 04/14/19 07:14 adhesives AdvReac skin tears Uncoded 04/14/19 07:13 Home Medications Home Medications Medication Instructions Recorded Confirmed Type albuterol sulfate 90 mcg/actuation 2 puffs INH UD PRN 12/03/18 04/18/19 History aerosol inhaler aspirin 81 mg tablet,delayed 81 mg PO DAILY tab 12/03/18 04/18/19 History release blood sugar diagnostic #10 ea 12/03/18 04/18/19 History blood-glucose sensor #3 ea 12/03/18 04/18/19 History budesonide-formoterol HFA 160 2 puffs INH BID 12/03/18 04/18/19 History mcg-4.5 mcg/actuation aerosol inhaler cinnamon bark 500 mg capsule 2,000 mg PO DAILY cap 12/03/18 04/18/19 History esomeprazole magnesium 40 mg 40 mg PO BID cap 12/03/18 04/18/19 History capsule,delayed release hydrocodone-homatropine 5 mg-1.5 5 ml PO UD PRN ml 12/03/18 04/18/19 History mg/5 mL oral syrup insulin degludec 200 unit/mL (3 76 units SQ HS ml 12/03/18 04/18/19 History mL) subcutaneous pen lancets #50 ea 12/03/18 04/18/19 History metoprolol succinate 25 mg capsule 25 mg PO QAM 12/03/18 04/18/19 History sprinkle, ext. release 24 hr ondansetron 4 mg disintegrating 4 mg PO Q6H PRN 12/03/18 04/18/19 History tablet pen needle, diabetic 32 gauge x #10 ea 12/03/18 04/18/19 History 5/32" pregabalin 100 mg capsule 100 mg PO BID 12/03/18 04/18/19 History ranitidine HCl 150 mg capsule 150 mg PO BID 12/03/18 04/18/19 History tamsulosin 0.4 mg capsule 0.4 mg PO BID 90 Days #180 cap 01/13/19 04/18/19 Rx desoximetasone 0.25 % topical cream 1 appln TOP USEASDIRECTD gm 02/02/19 04/18/19 History insulin aspart U-100 100 unit/mL 40 units SQ USEASDIRECTD ml 02/02/19 04/18/19 History (3 mL) subcutaneous pen nitroglycerin 0.4 mg sublingual 0.4 mg SL USEASDIRECTD PRN tab 02/02/19 04/18/19 History tablet celecoxib 200 mg capsule 200 mg PO DAILY #30 cap 02/04/19 04/18/19 Rx atorvastatin 40 mg PO HS 03/25/19 04/18/19 History bismuth subsalicylate 262 mg PO UD PRN 03/25/19 04/18/19 History [Anti-Diarrheal] promethazine 25 mg PO UD PRN 03/25/19 04/18/19 History torsemide 40 mg PO QAM 03/25/19 04/18/19 History trazodone 50 mg PO HS 03/25/19 04/18/19 History paroxetine HCl 20 mg tablet 20 mg PO DAILY #90 tab 03/28/19 04/18/19 Rx potassium chloride 10 mEq 20 meq PO BID #360 tab 04/15/19 04/18/19 Rx tablet,extended release oxycodone 5 mg PO Q6H PRN #40 cap 04/16/19 04/18/19 Rx oxycodone 10 mg tablet 5 - 10 mg PO q4h PRN #30 tab 04/18/19 Rx Patient History Medical History Acid reflux Arthritis Asthma CAD (coronary artery disease) Mild nonobstructive. Luminal irregularities only noted on 2016 cath. Chest pain OCC -- cardiology aware, felt 2/2 reflux esophagitis. Pt states he was instructed by Dr. Talbert to use nitroglycerin for relief. 2016 cath showed only luminal irregularities. Chronic kidney disease Claustrophobia COPD (chronic obstructive pulmonary disease) Rx'd Symbicort BID but not using consistently; using for rescue instead of Ventolin. Pt educated on proper usage of inhalers. Degenerative disc disease Diabetes Diarrhea FREQUENT OVER LAST FEW MONTHS Frequent falls Heart palpitations Hyperlipidemia Obesity Sleep apnea CPAP Surgical History History of anesthesia reaction IN SLOW TO WAKE UP FROM SURGERY, NO LONGER HAS PROBLEM History of back surgery "T5 AND T7" History of cardiac cath 2-3 YR AGO - [facility] - NO FINDINGS History of carpal tunnel surgery of left wrist History of cholecystectomy History of colonoscopy History of elbow surgery BILAT History of left inguinal hernia REPAIR History of neck surgery HARDWARE IN History of shoulder surgery R Hx of appendectomy Family History Mother Cancer uterine Family history of diabetes mellitus Social History Preferred Language: Latvian Communication Ability: Effective Line Therapist Required: No Beliefs That Will Affect Care: Latter-Day Latter-Day Beliefs: MORMON marital status: / Current Living Situation: Parent Current Living Situation Comment: cares for an autistic son current occupational status: unemployed Feels Safe at Home: Yes Smoking Status: Former smoker Hx Alcohol Use: No Hx Substance Use: No Review of Systems Review of Systems: All systems reviewed & are unremarkable except as noted in HPI & below Physical Exam Physical Exam: General: no distress Eyes: normal inspection, PERLL Respiratory: chest non tender, clear to auscultation, normal breath sounds, no respiratory distress, no accessory muscle use Cardiac: regular rate and rhythm, no rub or gallop, no murmur, no edema, no jvd GI/: active bowel sounds, left lower abdominal pain to palpation, soft, non distended Extremities: normal range of motion, normal strength, non tender Neuro/Psych: alert and oriented x 3, normal mood and affect Skin: normal color, dry Results & Data Vital Signs (Past 12 Hours) Vital Signs Temp Pulse Pulse Resp BP Pulse Ox 04/15/19 11:46 37 C 85 13 131/77 91 04/15/19 07:25 37.3 C 99 H 13 113/74 92 04/15/19 04:07 37.5 C 96 H 18 135/64 91 04/15/19 00:30 92 PG Care Time/CCT Total # of Minutes Spent Total Time Spent with Patient: Total time spent is greater than 50% in coordination of care (as documented) at patient's floor/unit and/or counseling patient:
[2019-04-15] MEDS ORDERED: PHARMACY GLYCEMIC MGMT CONSULT STA (12:49)
--- NOTE | 2019-04-15 13:46 | Pharmacy Report ---
Pharmacy Glycemic Short Note 2 - Date of Service April 15, 2019 - Glycemic Short BSG Results (Last 24 hours): 04/14/19 04/14/19 04/14/19 13:44 15:52 17:26 Glucose POC Glucose 206 H 187 H 208 H 04/14/19 04/15/19 04/15/19 20:40 00:05 04:02 Glucose POC Glucose 221 H 70 138 H 04/15/19 04/15/19 04/15/19 05:46 08:24 12:11 Glucose 136 H POC Glucose 153 H 132 H ASSESSMENT: * BSGs look improved today. We will continue with current correctional insulin orders. See below for metabolic insulin orders. DXM hyperglycemic effects no longer on board PLAN FOR INPATIENT GLYCEMIC CONTROL: * Basal insulin * Lantus scale SQ @ HS * give 65u for BSGs <120 * give 76u for BSGs >/=120 * Bolus insulin * NovoLog per scale ACHS or Q6hrs while NPO * Goal Range: Low 110 mg/dL - High 140 mg/dL * Correction Factor: 10 mg/dL/unit * Nutritional / Prandial insulin per carb ratio of 1 unit per 3 grams CHO consumed * 00,04 checks are no longer indicated
--- NOTE | 2019-04-15 14:17 | Ultrasound Report ---
US abdomen ltd hernia HISTORY: Pain. Nausea. left lower abdominal pain previous hernia repair. COMPARISON: May 20, 2009 FINDINGS: Evaluation of the left inguinal region shows presence of a reducible fat-containing left in guinal hernia. No evidence for bowel containment. IMPRESSION: Reducible fat-containing left inguinal hernia. The above report was generated using voice recognition software. It may contain grammatical, syntax or spelling errors. Electronically signed by: Gaudencio Manley M.D. 04/15/2019 2:16 PM
[2019-04-15] MEDS ORDERED: INSULIN GLARGINE 100 UNIT/ML VIAL SC SCH ×2 (21:00)
[2019-04-15] MEDS ORDERED: ACETAMINOPHEN 325 MG TAB PO PRN (21:53)
[2019-04-15] MEDS: ATORVASTATIN 40 MG TAB PO SCH (21:56)
[2019-04-15] MEDS: DOCUSATE SODIUM/SENNA 50/8.6MG TAB PO SCH (21:56)
[2019-04-15] MEDS: TRAZODONE HCL 50 MG TAB PO SCH (21:56)
[2019-04-16] MEDS: POLYETHYLENE (MIRALAX) 17 GM PACK PO SCH (05:32)
[2019-04-16] MEDS: OXYCODONE HCL IR 5 MG TAB (IMMEDIATE RELEASE) PO PRN ×2 (05:34→11:04)
[2019-04-16 06:14] LABS: Basophils # (auto) 0.02 K/uL (0-0.2); Basophils % (auto) 0.2 %; Eosinophils # (auto) 0.28 K/uL (0-0.5); Eosinophils % (auto) 2.4 %; Hemoglobin 10.9 g/dL (14.0-18.0); Immature Granulocytes # (auto) 0.03 K/uL (0.00-0.02); Immature Granulocytes % (auto) 0.3 %; Lymphocytes # (auto) 2.83 K/uL (1.2-3.4); Lymphocytes % (auto) 24.4 %; Mean Corpuscular Hemoglobin 31.9 pg (25-34); Mean Corpuscular Hgb Conc 34.1 g/dL (32-36); Mean Corpuscular Volume 93.6 fL (80-100); Mean Platelet Volume 10.2 fL (7.4-10.4); Monocytes # (auto) 1.49 K/uL (0.11-0.59); Monocytes % (auto) 12.8 %; Neutrophils # (auto) 6.96 K/uL (1.4-6.5); Neutrophils % (auto) 59.9 %; Platelet Count 179 K/uL (130-400); RDW Coefficient of Variation 12.8 % (11.5-14.5); RDW Standard Deviation 43.6 fL (36.4-46.3); Red Blood Count 3.42 M/uL (4.7-6.1); White Blood Count 11.61 K/uL (4.8-10.8)
[2019-04-16 06:39] LABS: BUN Creatinine Ratio 12.6 (10-20); Calcium 8.4 mg/dl (8.5-10.1); Creatinine Clr Calc Pharmacy 90.3 ml/min; Est GFR (African American) 72.5; Est GFR (Non-African American) 62.6; Potassium 3.7 mmol/L (3.5-5.1)
[2019-04-16 08:00] VITALS: TEMP 97.7; O2SAT 94
[2019-04-16] MEDS ORDERED: LACTULOSE SYRUP 30 GM/45 ML UDP PO STA (08:03)
--- NOTE | 2019-04-16 09:08 | Discharge Summary ---
Date of Service April 16, 2019 Admission HPI Per Admitting Provider Severe spinal stenosis spinal instability spondylolisthesis. Inability to stand inability to come upright or ambulate Principal Diagnosis Severe spinal stenosis and instability lumbar spine. And spondylolisthesis Discharge Exam No fever sweats chills completely afebrile. No chest pain shortness of breath lung sounds clear. Neurosensory intact Taking p.o. no nausea vomiting good bowel sounds Discharge Data Allergies Allergy/AdvReac Type Severity Reaction Status Date / Time codeine Allergy Unknown PRURITIS, Verified 04/14/19 07:04 HIVES Iodinated Contrast Media Allergy Unknown HIVES Verified 04/14/19 07:04 iodine Allergy Unknown HIVES WITH Verified 04/14/19 07:04 TOPICAL IODINE meperidine Allergy Unknown HIVES Verified 04/14/19 07:04 spironolactone Allergy Unknown GROWING Verified 04/14/19 07:04 BREASTS amoxicillin AdvReac Unknown GI SYMPTOMS Verified 04/14/19 07:04 clavulanic acid AdvReac Unknown GI SYMPTOMS Verified 04/14/19 07:04 meloxicam AdvReac Unknown Diarrhea Verified 04/14/19 07:04 metformin AdvReac Unknown severe Verified 04/14/19 07:04 diarrhea, cramping coban AdvReac Intermediate Rash Uncoded 04/14/19 07:14 adhesives AdvReac skin tears Uncoded 04/14/19 07:13 Consultations 04/14/19 14:30 Consult Case Management - Discharge Planning Routine Consult Hospitalist Routine 04/15/19 08:09 Consult Case Management - Discharge Planning Routine Procedures Performed Operation Date: 04/14/19 08:15 Actual Procedures p L4-S1 Laminectomy;Fusion L4-S1; Instrumentation L5-S1(Not Applicable) - Kolton Ulloa DO Ordered Studies 04/14/19 07:00 FL fluoroscopy <1hr Routine FL spine 1V any level Routine 04/15/19 12:28 US abdomen ltd hernia Routine Hospital Course (1) Abdominal pain: (2) Bipolar disorder: (3) Post-operative state: (4) Postoperative pain after spinal surgery: Patient had a fairly uneventful stay postoperatively for major complex ruelas rgical intervention. He was up ambulatory taking p.o. Demonstrated no signs of neurological deficits and pain measurably improved (5) COPD (chronic obstructive pulmonary disease): (6) Mild CAD: (7) Diabetes: Total Time Total Time Spent Total Time Spent (In Minutes): 30 Discharge Plan Discharge Items Patient Disposition: Home - Home Health Services Reason For Visit: Spondylolisthesis Discharge Diagnosis: Spondylolisthesis, severe spinal stenosis, spinal instability. Morbid obesity Activity: As commented below Activity Comment: Home rest recover Non-emergency contact: Primary Care Provider Call non-emergency contact if: you have any medication questions Follow-up/Referrals: Jacki Phelan MD [Primary Care Provider] - Diet: Carb Consistent or DM2 Addtl Attending Provider Instructions: MEDICATIONS: Please take your prescriptions as instructed at your pre-op appointment. SPECIAL CARE: The following information is intended to answer some of the common questions and concerns regarding your surgery. Each patient is an individual and receives individual counselling throughout the course of treatment, from diagnosis to surgery all the way through recovery. What follows is not an exhaustive list, but should be a useful guide to some of the common questions and concerns patients have regarding their surgeries. These are not provided to keep you from calling us; rather, they give you something accurate and concrete to reference as you recover from your procedure. If you need us, we are available to you. As always, if you are not sure about something, call us at [phone]. MEDICAL EMERGENCIES: For these conditions, call 911 or go to your local hospital-based Emergency Department - not [facility] or equivalent. * Paralysis * Severe chest pain or difficulty breathing * Swelling or redness of either leg Spine procedures can be rather complex and though complications are rare, they do occur. In such cases, effective advice regarding emergency situations cannot always be addressed over the telephone. You may be referred to the emergency department for more effective management of your problem. Activity Limitations: It is important to give your body time to heal, so please limit your activities: * In general, don't do anything that moves your spine too much. You should avoid contact sports, twisting or heavy lifting while you recover. * 5-10 pounds is all you should attempt to lift. * You should not plan on driving for approximately 3 weeks and you should avoid traveling more than 30-45 minutes at a time. Longer trips should be broken down with walking breaks spaced appropriately. * Physical therapy is not usually required. * Walking and good posture practices will help you recover and regain your function. * Avoid straining or sudden changes in position. * In general, the goal is to take it easy and recover. Don't cause any new problems. Just relax. Showers: * Do not take a bath, use a Jacuzzi or hot tub or otherwise submerge your incision. * It is usually safe to take a shower 4-5 days after your surgery. * Your incision does not require any special creams or ointments. * Simply clean it with soap and water, dry and re-dress with a clean bandage afterwards. Incision: * Keep incision clean, dry and protected until your first follow-up appointment. * Some amount of drainage and redness is normal. Any drainage should be fairly clear and not have a foul odor. * If you feel anything is wrong or you have excessive drainage, please call us. * Your stitches and des will be removed 10-14 days after your surgery. At the time of your first post-op visit. * Neck surgeries are typically closed with a suture underneath the skin. The steri-strips over the incision should be maintained until we see you in the office. Bracing: * You may be provided with a back or neck brace to encourage good posture and prevent injury. It will remind you not to do too much as you heal and will alert others to the fact that you have had a surgery. * Back braces may be removed for showers and when you are resting at home. They must be worn when you are walking around for any period of time or for travel. * For neck surgery, you will likely be provided with two cervical collars. The soft collar (Emerson or foam rubber) is worn most commonly throughout the day and while sleeping. The plastic collar (provided at the hospital) is for showering/bathing. * Except while eating, collars should remain in place. More specifically, bracing is provided for a purpose and should be worn. * Please obtain your brace or collars prior to your operation and bring them to the hospital with you on the day of surgery. * You should also bring your collars to your post-op appointment with Dr. Ulloa. You should always take good care of your body and practice healthy habits, especially following surgery. You should: * Follow your doctor's treatment plan * Sit and stand properly with good posture (ears over shoulders, shoulders over hips) Don't slouch * Learn to lift correctly * Exercise regularly (low-impact aerobic exercise is especially good, but check with your doctor first) * Generally, be up and walking for 5-10 minutes at a time at least 3-4 times per day from the day you get home * Increasing walking to tolerance until you can walk for 20-30 minutes at a time * Attain and maintain a healthy body weight * Eat healthy foods ( a well-balanced, low-fat diet rich in fruits and vegetables) and get enough calcium * Avoid excessive use of alcohol When to call our office - If you notice any of the following: * Increased pain not relieve by pain medicine * Fevers greater then 100 degrees F, chills or flu symptoms * Increased redness around incision * Drainage from the incision that is not clear * Any foul smelling drainage * Swelling or fluid collection beneath the skin Miscellaneous: * In the hospital, you may be given a walker or cane for support while walking. These are temporary needs and are intended to prevent injuries due to falls. You may discontinue them when you feel strong and steady enough on your feet. * Sleep in a comfortable position. We find that many patients find a lounge chair or recliner with several pillows to be beneficial in the early post-operative period. * The support stockings should be used for 7-10 days and may be discontinued when you are back to walking more and conducting usual household activities. No problem is insignificant. We are here to help you and get you well. Contact us at [phone]. Definitions: Foraminotomy: If part of the disc or a bone spur (osteophyte) is pressing on a nerve as it leaves the vertebra (through an exit called the foramen), a foraminotomy may be done. Otomy means "to make an opening." A foraminotomy is making the opening of the foramen larger, so the nerve can exit without being compressed. Laminotomy: Similar to the foraminotomy, a laminotomy makes a larger opening, this time in your bony plate protecting your spinal canal and spinal cord (the lamina). The lamina may be pressing on your nerve, so the surgeon may make more room for the nerves using a laminotomy. Laminectomy: Sometimes, a laminotomy is not sufficient. The surgeon may need to remove all or part of the lamina. This procedure is called a laminectomy. This can often be done at many levels without any harmful effects. Pending Studies at Discharge: No Stand-Alone Forms: My [facility] [employer], Smoking Cessation Medications and DC Order Prescriptions: New oxycodone 5 mg capsule 5 mg PO Q6H PRN (Reason: pain) Qty: 40 RF: 0 Continued tamsulosin 0.4 mg capsule 0.4 mg PO BID 90 Days Qty: 180 RF: 1 paroxetine HCl 20 mg tablet 20 mg PO DAILY Qty: 90 RF: 3 potassium chloride [Klor-Con 10] 10 mEq tablet extended release 20 meq PO BID Qty: 360 RF: 3 celecoxib [Celebrex] 200 mg capsule 200 mg PO DAILY Qty: 30 RF: 2 aspirin [Adult Low Dose Aspirin] 81 mg tablet,delayed release (DR/EC) 81 mg PO DAILY RF: 0 (DME) pen needle, diabetic [BD Ivon 2nd Gen Pen Needle] 32 gauge x 5/32" needle See Dose Instructions .ROUTE .MEDSUPPLY Qty: 10 RF: 0 cinnamon bark [Cinnamon] 500 mg capsule 2,000 mg PO DAILY RF: 0 (DME) Contour Next Test Strips strip See Dose Instructions .ROUTE .MEDSUPPLY Qty: 10 RF: 0 (DME) Dexcom G5-G4 Sensor device See Dose Instructions .ROUTE .MEDSUPPLY Qty: 3 RF: 0 esomeprazole magnesium [Nexium] 40 mg capsule,delayed release(DR/EC) 40 mg PO BID RF: 0 hydrocodone-homatropine 5-1.5 mg/5 mL syrup 5 ml PO UD PRN (Reason: cough) RF: 0 Lyrica 100 mg capsule 100 mg PO BID RF: 0 metoprolol succinate 25 mg capsule,sprinkle,ER 24hr 25 mg PO QAM RF: 0 (DME) lancets [Microlet Lancet] misc See Dose Instructions .ROUTE .MEDSUPPLY Qty: 50 RF: 0 ondansetron 4 mg tablet,disintegrating 4 mg PO Q6H PRN (Reason: Nausea) RF: 0 albuterol sulfate [Proventil HFA] 90 mcg/actuation HFA aerosol inhaler 2 puffs INH UD PRN (Reason: COPD) RF: 0 ranitidine HCl 150 mg capsule 150 mg PO BID RF: 0 Symbicort 160-4.5 mcg/actuation HFA aerosol inhaler 2 puffs INH BID RF: 0 Tresiba FlexTouch U-200 200 unit/mL (3 mL) insulin pen 76 units SQ HS RF: 0 desoximetasone 0.25 % cream 1 appln TOP USEASDIRECTD RF: 0 Novolog Flexpen U-100 Insulin 100 unit/mL (3 mL) insulin pen 40 units SQ USEASDIRECTD RF: 0 nitroglycerin 0.4 mg tablet, sublingual 0.4 mg SL USEASDIRECTD PRN (Reason: ACID REFLUX AND CHEST PAIN) RF: 0 atorvastatin 40 mg tablet 40 mg PO HS RF: 0 torsemide 20 mg tablet 40 mg PO QAM RF: 0 trazodone 50 mg tablet 50 mg PO HS RF: 0 promethazine 25 mg tablet 25 mg PO UD PRN (Reason: Nausea) RF: 0 bismuth subsalicylate [Anti-Diarrheal] 262 mg/15 mL Suspension 262 mg PO UD PRN (Reason: Diarrhea) RF: 0 Discharge Orders: Discharge Order (Routine); Ordered 04/16/19 Ordered By: Kolton Key/Other Patient Handouts: Diabetes [employer] Operations Manager Complications, Hyperglycemia, Hypoglycemia, Diabetes Resources, Diabetes Healthy Meals, Diabetes Carbs, Diabetes Exercise Benefits, Diabetes Activity Tips, Diabetes Living Life, Diabetes Manage A1C Test Admission Data Admit Date/Time: 04/14/19 12:34 Attending Provider: Kolton Ulloa Admit Provider: Kolton Ulloa Primary Care Provider: Jacki Phelan Other Providers: Mata Baez ; Violetta Pérez ; Lizz Phillips ; Travis Trinidad ; Tylor Padilla ; Beulah Lambert ; Faraz Walton ; Yang Stovall ; Pranay Ruth ; Nichole Painter ; Mariella Mejia ; Yary Gifford ; Yo Campo ; Nicole Eastman ; Jerry Frausto ; Adam Pineda ; Violetta Rosenthal ; Serg Ferris ; Lisa Goel ; Kasey Almazan ; Amandeep Castle ; Travis Wolff ; Adwoa Raines ; Tootie Waddell ; Samuel Qiunn ; Philip Haley ; Gil Mishra ; Arvin Walker ; Mateo Lugo ; [facility],On License Of [facility]
[2019-04-16] MEDS: METOPROLOL SUCC 25MG EXT REL TAB PO SCH (09:12)
[2019-04-16] MEDS: ASPIRIN 81 MG ECTAB PO SCH (09:13)
[2019-04-16] MEDS: PARoxetine HCl 20 MG TAB PO SCH (09:13)
[2019-04-16] MEDS: BUDESONIDE/FORMOTEROL FUMARATE 160/4.5 60 PUFFS/INHALER INH SCH (09:13)
[2019-04-16] MEDS: POTASSIUM CHLORIDE 10 MEQ TABCR PO SCH (09:13)
[2019-04-16] MEDS: TORSEMIDE 20 MG TAB PO SCH (09:13)
[2019-04-16] MEDS: FAMOTIDINE 20 MG TAB PO SCH (09:13)
[2019-04-16] MEDS: TAMSULOSIN HCL 0.4 MG CAP PO SCH (09:13)
[2019-04-16] MEDS: INSULIN ASPART 100 UNITS/ML 3 ML PEN SQ SCH (09:15)
[2019-04-16] MEDS: PREGABALIN 100 MG CAP PO SCH (09:19)
[2019-04-16] MEDS: CEFAZOLIN 2000MG 2,000 MG/15 ML SYR IV SCH (09:23)
[2019-04-16 10:01] VITALS: BP 115/73; PULSE 97
[2019-04-18] MEDS ORDERED: OXYCODONE/ACETAMINOPHEN 10-325 TAB PO PRN (15:44)
== END 2019-04-16 11:15 | disposition home health service (06) | DRG 460 ==
LOC: ASU 06:33 → 3E 12:34
DX: Z88.0 Allergy status to penicillin; Z88.8 Allergy status to other drugs, medicaments and biological substances; J44.9 Chronic obstructive pulmonary disease, unspecified; Z79.51 Long term (current) use of inhaled steroids; Z88.6 Allergy status to analgesic agent; M43.16 Spondylolisthesis, lumbar region; Z68.38 Body mass index [BMI] 38.0-38.9, adult; Z79.82 Long term (current) use of aspirin; E11.65 Type 2 diabetes mellitus with hyperglycemia; M48.061 Spinal stenosis, lumbar region without neurogenic claudication; Z79.1 Long term (current) use of non-steroidal anti-inflammatories (NSAID); I25.10 Atherosclerotic heart disease of native coronary artery without angina pectoris; I12.9 Hypertensive chronic kidney disease with stage 1 through stage 4 chronic kidney disease, or unspecified chronic kidney disease; N18.9 Chronic kidney disease, unspecified; E78.5 Hyperlipidemia, unspecified; K59.00 Constipation, unspecified; R10.32 Left lower quadrant pain; Z91.19 Patient's noncompliance with other medical treatment and regimen; M53.2X6 Spinal instabilities, lumbar region; E11.42 Type 2 diabetes mellitus with diabetic polyneuropathy; Z79.899 Other long term (current) drug therapy; K21.0 Gastro-esophageal reflux disease with esophagitis; Z79.4 Long term (current) use of insulin; F31.9 Bipolar disorder, unspecified; Z88.1 Allergy status to other antibiotic agents; M06.9 Rheumatoid arthritis, unspecified; Z87.891 Personal history of nicotine dependence; Z91.048 Other nonmedicinal substance allergy status; E11.22 Type 2 diabetes mellitus with diabetic chronic kidney disease; Z91.041 Radiographic dye allergy status; E66.01 Morbid (severe) obesity due to excess calories; E78.00 Pure hypercholesterolemia, unspecified; Z88.5 Allergy status to narcotic agent; R60.0 Localized edema

== ENCOUNTER 2020-12-14 05:03 | Inpatient (IN) ==
--- NOTE | 2020-12-04 12:30 | Anesthesiology Consultation ---
Date of Service December 04, 2020 Assessment & Plan (1) Encounter for pre-operative examination: Chart Review Chart Review: Acceptable Risk for Surgery (pending preop Covid testing results ) and Patient NOT seen in Pre Admission Testing - Check BSG AM DOS Per nursing assessment 12/03/2020, patient denies any recent travel. No known Covid infection in the past 90 days. Patient is vaccinated for Covid. No known Covid positive contacts or Covid related symptoms. Preop Covid testing scheduled 12/12/20 at [place]= will await results Patient seen by cardiology 11/30/2020 = patient seen for preoperative cardiac evaluationscheduled to undergo cervical spine surgery on 12/14/2020, followed by lumbar spinal surgery at a later date. Patient remains active on daily basistypically walking. Chronic intermittent GRIFFITH that resolved with rescue inhaler. Occasional brief palpitations described as skipped beatsvery short- lived. No associated symptoms. "Based on his normal biventricular systolic function, normal and stable EKG tracing, and minimal coronary artery disease on Cardiac Catheterization in 2016 -- patient is a low to intermediate cardiac surgical risk for his upcoming L-spine surgery. Patient was advised to take his usual dose of Toprol XL and his inhalers the morning of surgery. There is no need for further cardiac workup at this time" Seen by diabetes clinic 12/03/2020 = diabetes clinic aware of upcoming surgerydid give surgical BCG targets both pre and post meal. Continue insulin and Ozempic. Laminectomy and fusion L4-L5, L5-S1 on 04/14/2019 = done under GA with grade 1 view with glidescope #4. ETT #8.0. No anesthesia issues noted per anesthesia record. History Surgery Operation Date: 12/14/20 10:35 Proposed Procedures p Anterior Cervical Discectomy and Fusion C6-7, Removal of Hardware Anterior C4- C6, Autograft, Allograft, Spinal Cord Monitoring - Aysha Moon MD Height/Weight Height: 6 ft Weight: 120.202 kg Allergies Allergy/AdvReac Type Severity Reaction Status Date / Time codeine Allergy Unknown PRURITIS, Verified 12/04/20 09:44 HIVES Iodinated Contrast Media Allergy Unknown HIVES Verified 12/04/20 09:44 iodine Allergy Unknown HIVES WITH Verified 12/04/20 09:44 TOPICAL IODINE meperidine Allergy Unknown HIVES Verified 12/04/20 09:44 spironolactone Allergy Unknown GROWING Verified 12/04/20 09:44 BREASTS omeprazole AdvReac Intermediate Vomiting Verified 12/04/20 09:44 amoxicillin AdvReac Unknown GI SYMPTOMS Verified 12/04/20 09:44 clavulanic acid AdvReac Unknown GI SYMPTOMS Verified 12/04/20 09:44 meloxicam AdvReac Unknown Diarrhea Verified 12/04/20 09:44 metformin AdvReac Unknown severe Verified 12/04/20 09:44 diarrhea, cramping coban AdvReac Intermediate Rash Uncoded 12/03/20 14:41 adhesives AdvReac skin tears Uncoded 12/03/20 14:41 Medications Home Medications Medication Instructions Recorded Confirmed Last Taken albuterol sulfate 90 mcg/actuation 2 puffs INH UD PRN 12/03/18 12/04/20 04/13/19 16:00 aerosol inhaler (Proventil HFA) aspirin 81 mg tablet,delayed 81 mg PO QAM tab 12/03/18 12/04/20 11/08/20 08:00 release (Adult Low Dose Aspirin) budesonide-formoterol HFA 160 2 puffs INH BID PRN 12/03/18 12/04/20 04/14/19 05:30 mcg-4.5 mcg/actuation aerosol inhaler (Symbicort) cinnamon bark 500 mg capsule 2,000 mg PO QAM cap 12/03/18 12/04/20 11/15/20 06:00 (Cinnamon) nitroglycerin 0.4 mg sublingual 0.4 mg SL USEASDIRECTD PRN tab 02/02/19 12/04/20 Unknown tablet bismuth subsalicylate 262 mg/15 mL 262 mg PO UD PRN 03/25/19 12/04/20 Unknown oral suspension (Anti-Diarrheal) promethazine 25 mg tablet 25 mg PO UD PRN #30 tab 06/20/19 12/04/20 09/26/19 19:30 Dexcom G6 Transmitter #1 ea NS 07/01/19 12/04/20 Unknown (blood-glucose transmitter) pen needle, diabetic 32 gauge x 09/26/19 12/04/20 Unknown 32" (BD Ultra-Fine Ivon Pen Needle) oxycodone-acetaminophen 5 mg-325 1 tab PO HS PRN tab 12/07/19 12/04/20 Unknown mg tablet insulin aspart U-100 100 unit/mL 150 units SQ DAILY box 12/19/19 12/04/20 11/15/20 06:00 (3 mL) subcutaneous pen (Novolog Flexpen U-100 Insulin aspart) Nexium 40 mg capsule,delayed 40 mg PO BID #180 cap NS 12/20/19 12/04/20 11/15/20 06:00 release (esomeprazole magnesium) diphenhydramine HCl 25 mg capsule 25 mg PO DAILY PRN #90 cap 01/24/20 12/04/20 Unknown (Allergy (diphenhydramine)) metoprolol succinate 25 mg capsule 25 mg PO QAM #90 ea 04/25/20 12/04/20 11/15/20 06:00 sprinkle, ext. release 24 hr atorvastatin 40 mg tablet 40 mg PO HS #90 tab 07/16/20 12/04/20 Unknown ondansetron 4 mg disintegrating 4 mg PO Q6H PRN 90 Days #120 tab 09/06/20 12/04/20 11/14/20 20:00 tablet torsemide 20 mg tablet 40 mg PO QAM #200 tab 09/27/20 12/04/20 11/15/20 06:00 Lyrica 150 mg capsule (pregabalin) 150 mg PO BID #60 cap NS 10/22/20 12/04/20 11/15/20 06:00 potassium chloride 10 mEq 40 meq PO BID 90 Days #720 tab 11/21/20 12/04/20 Unknown tablet,extended release celecoxib 200 mg capsule (Celebrex) 200 mg PO QAM 12/03/20 12/04/20 Unknown insulin degludec 200 unit/mL (3 80 unit SQ PM 90 Days #18 syr 12/03/20 12/04/20 Unknown mL) subcutaneous pen (Tresiba FlexTouch U-200 insulin) semaglutide 1 mg/dose (2 mg/1.5 1 mg SUBCUT WK 12/03/20 12/04/20 Unknown mL) subcutaneous pen injector (Ozempic) fluoxetine 20 mg tablet 30 mg PO DAILY #45 tab 12/04/20 12/04/20 Unknown lorazepam 0.5 mg tablet 0.5 mg PO Q8H PRN #20 tab 12/04/20 12/04/20 Unknown Past Medical History Medical History BPH (benign prostatic hyperplasia) CAD (coronary artery disease) Mild nonobstructive. Luminal irregularities only noted on 2015 cath. COPD (chronic obstructive pulmonary disease) Depression Diabetes type 2, controlled Diabetic peripheral neuropathy associated with type 2 diabetes mellitus Dyslipidemia GERD (gastroesophageal reflux disease) Hypertension Obesity Osteoarthritis Psoriasis Sleep apnea CPAP Spinal stenosis of lumbar region with radiculopathy Past Family History Family History Mother Cancer uterine Family history of diabetes mellitus Hypertension Father Cardiac disorder Family history of diabetes mellitus Hypertension Family/Other Gout Sister Sleep apnea Other Coronary heart disease Past Surgical History Surgical History H/O left inguinal hernia repair History of anesthesia reaction IN SLOW TO WAKE UP FROM SURGERY, NO LONGER HAS PROBLEM History of back surgery "T5 AND T7" L4-S1 fusion 04/14/2019 History of cardiac cath (~2016) [facility] History of carpal tunnel surgery of left wrist History of cholecystectomy History of colonoscopy (12/2016) History of elbow surgery BILAT History of esophagogastroduodenoscopy (EGD) (12/2016) History of myelography hx of myelogram cervical 11/2020 History of neck surgery HARDWARE IN> ROM IS LIMTED History of shoulder surgery R Hx of appendectomy Social History Smoking Status: Former smoker Do You Dip or Chew Tobacco: No Smoking End Date: 2012 Hx Alcohol Use: No Hx Substance Use: No substance use type: does not use Lab Results Anesthesia Preop Results Results Anesthesia Widget: WBC 8.16 K/uL (4.8-10.8) 12/03/20 Hgb 16.1 g/dL (14.0-18.0) 12/03/20 Hct 47.2 % (42-52) 12/03/20 Plt 313 K/uL (130-400) 12/03/20 Na 138 mmol/L (136-145) 12/03/20 K 3.7 mmol/L (3.5-5.1) 12/03/20 Cl 103 mmol/L (98-107) 12/03/20 CO2 30 mmol/L (21-32) 12/03/20 BUN 9 mg/dl (7-18) 12/03/20 Creat 1.14 mg/dl (0.6-1.4) 12/03/20 Glucose Level 107 mg/dl (70-99) H 12/03/20 TSH 0.747 uIu/ml (0.300-4.500) 12/03/20 HA1c 7.4 % (4.5-5.6) H 12/03/20 Blood Type O Negative 12/03/20 Antibody Screen NEGATIVE 12/03/20 Testing Electrocardiogram Date: 12/03/20 Findings: + NSR @ (77 bpm) Normal EKG per cardio. Chest X-Ray Date: 12/03/20 Findings: + NAD Echocardiogram Date: 01/16/17 EF: 60-65% Left ventricular size wall motion and systolic function are normal. There is mild concentric LVH. Grade 1 diastolic dysfunction. No significant valvular pathology Cardiac Catheterization Date: 06/04/15 LM: normal. splits into trifurcation with LAD, large Ramus, LCx. Minimal luminal irregularities throughout. LAD: normal. Minimal luminal irregularities. LCx: normal. Minimal luminal irregularities. Ramus: normal. RCA: normal. LVgram: limited. LVEF approximately 65-70%.
[2020-12-14] MEDS ORDERED: LR 60ML/HR IV SCH (06:00)
[2020-12-14] MEDS ORDERED: LR 15ML/HR IV SCH (06:00)
[2020-12-14] MEDS ORDERED: REMIFENTANIL HCL 1 MG VIAL ONE (06:07)
[2020-12-14] MEDS ORDERED: ALBUMIN HUMAN 5% 12.5 GM/250 ML VIAL IV ONE (06:07)
[2020-12-14] MEDS ORDERED: ACETAMINOPHEN 1000 MG/100 ML IV IV ONE (06:07)
[2020-12-14] MEDS ORDERED: SUGAMMADEX SODIUM 200 MG/2 ML VIAL IV ONE (06:08)
[2020-12-14] MEDS ORDERED: MIDAZOLAM HCL 1 MG/ML 2ML VIAL ONE (06:35)
[2020-12-14] MEDS ORDERED: HYDROmorphone INJ 2 MG/ML SYR/VIAL ONE (06:35)
[2020-12-14] MEDS ORDERED: THROMBIN 5000 UNITS KIT ONE (06:50)
[2020-12-14] MEDS ORDERED: GELATIN SPONGE 12-7MM ONE ×2 (06:50→06:52)
[2020-12-14] MEDS ORDERED: THROMBIN FOR SOLN 20000 UNIT KIT ONE (06:53)
--- NOTE | 2020-12-14 07:00 | History & Physical Bridge Note ---
Date of Service December 14, 2020 History & Physical Bridge Note I have examined the patient, reviewed the History & Physical and in the interval since the performance of the History & Physical I have noted the following changes of clinical significance: no changes noted New changes compared to last appointment: slight reduction in sensation diffusely affecting the entire right upper and lower extremity, no new weakness, no other new symptoms. Musculoskeletal: 5/5 motor strength bilateral C5-T1, L2-S1 except right C5 4/5, C7 4/5, C8 4+/5. Neurologic: Sensation 2/2 to light touch bilateral C5-T1, L2-S1 except right C7 1/2, entire right upper and lower extremity slight reduction light touch vs. left, bilateral feet and ankle in [id number] distribution 1/2. Patient marked for surgery. All new questions about procedure answered. Informed consent confirmed
--- NOTE | 2020-12-14 07:06 | History & Physical Bridge Note ---
Date of Service December 14, 2020 History & Physical Bridge Note I have examined the patient, reviewed the History & Physical and in the interval since the performance of the History & Physical I have noted the following changes of clinical significance: no changes noted New changes compared to last appointment: slight reduction in sensation diffusely affecting the entire right upper and lower extremity, no new weakness, no other new symptoms. Musculoskeletal: 5/5 motor strength bilateral C5-T1, L2-S1 except right C5 4/5, C7 4/5, C8 4+/5. Neurologic: Sensation 2/2 to light touch bilateral C5-T1, L2-S1 except right C7 1/2, entire right upper and lower extremity slight reduction light touch vs. left, bilateral feet and ankle in [id number] distribution 1/2. CN II, III, IV, , IX, X, XI testing normal Patient marked for surgery. All new questions about procedure answered. Informed consent confirmed
[2020-12-14] MEDS ORDERED: ATROPINE SULFATE 0.1 MG/ML 10ML SYR IV PRN ×2 (07:14→14:11)
[2020-12-14] MEDS ORDERED: ePHEDrine sulfate 50 MG/ML AMP IV PRN ×2 (07:14→14:11)
[2020-12-14] MEDS ORDERED: ONDANSETRON INJ 2 MG/ML 2 ML VIAL IV PRN ×2 (07:14→14:51)
[2020-12-14] MEDS ORDERED: ePHEDrine sulfate 50 MG/ML SYR ONE (07:49)
[2020-12-14] MEDS ORDERED: SODIUM CHLORIDE 0.9% INJ 10 ML VIAL ONE (08:47)
[2020-12-14] MEDS ORDERED: SUCCINYLCHOLINE CHLORIDE 20 MG/ML 10 ML VIAL IV ONE (08:47)
[2020-12-14] MEDS ORDERED: PROPOFOL IV EMULSION 10 MG/ML 20 ML VIAL IV ONE (08:47)
[2020-12-14] MEDS ORDERED: LIDOCAINE 2% 2 ML VIAL/AMP(20MG/ML) INFIL ONE (08:47)
[2020-12-14] MEDS ORDERED: DEXAMETHASONE SOD INJ 4 MG/ML VIAL ONE (08:47)
[2020-12-14] MEDS ORDERED: ONDANSETRON INJ 2 MG/ML 2 ML VIAL ONE (08:47)
[2020-12-14] MEDS ORDERED: PROPOFOL IV EMULSION 10 MG/ML 100 ML VIAL IV ONE ×2 (08:47→10:01)
[2020-12-14] MEDS ORDERED: PHENYLEPHRINE 100MCG/ML 5ML SYR ONE (08:47)
[2020-12-14] MEDS ORDERED: FLOSEAL HEMOSTATIC MATRIX 10ML TOP ONE (12:16)
[2020-12-14] MEDS: fentaNYL citrate 100 MCG/2 ML VIAL IV PRN ×2 (13:30→13:35)
--- NOTE | 2020-12-14 13:34 | Post Operative Brief Note ---
PG Immediate Post Op with CF Date of Surgery December 14, 2020 Pre & Post Diagnosis Operation Date: 12/14/20 Pre-Op Diagnosis: Cervical Myelopathy Post-Op Diagnosis: Cervical Myelopathy I identified the patient and participated in the time-out.: Yes Procedure Actual Procedures p Anterior Cervical Discectomy and Fusion C6-C7, Removal of Hardware Anterior C4-C6, Local Autograft, Allograft Surgeon Aysha Moon MD Bunch Maker Hand David Perez PA-C Estimated Blood Loss 150 Findings Consistent with Post-Op Diagnosis Specimens Specimen Description: none per surgeon Drains Sanders Catheter (inserted after induction of anesthesia by Lucy Malave RN without difficulty) and Gwyn-Nolen Drain (10 Fr Round)
[2020-12-14] MEDS: HYDROmorphone INJ 2 MG/ML SYR/VIAL IV PRN ×4 (13:45→14:00)
--- NOTE | 2020-12-14 14:11 | Anesthesiology Progress Note ---
Date of Service December 14, 2020 Anesthesia Post Procedure Vital Signs Vital Signs: Temp Pulse Pulse Resp BP BP BP 12/14/20 13:50 36.3 C L 96 H 16 130/77 12/14/20 13:40 101 H 20 115/72 12/14/20 13:30 105 H 20 134/74 12/14/20 13:20 105 H 20 139/95 139/77 12/14/20 13:11 36.7 C 110 H 20 139/95 12/14/20 05:40 36.8 C 85 20 130/97 Pulse Ox 12/14/20 13:50 97 12/14/20 13:40 92 12/14/20 13:30 94 12/14/20 13:20 94 12/14/20 13:11 91 12/14/20 05:40 96 Transfer of Care Handoff Completed per policy Notes Mental Status: alert / awake / arousable and participated in evaluation Patient Amnestic to Procedure: Yes Nausea / Vomiting: adequately controlled Pain: adequately controlled Airway Patency, RR, SpO2: stable & adequate BP & HR: stable & adequate Hydration State: stable & adequate Anesthetic Complications: no major complications apparent and Pt Satisfied with anesthetic care
[2020-12-14] MEDS ORDERED: bisacodyL 10 MG SUPP PR PRN (14:51)
[2020-12-14] MEDS ORDERED: LORazepam 0.5 MG/1 ML VIAL IV PRN (14:51)
[2020-12-14] MEDS ORDERED: SOD PHOSPHATE/SOD BIPHOSPHATE ENEMA 132 ML BTL PR PRN (14:51)
[2020-12-14] MEDS ORDERED: ONDANSETRON 4 MG OD TAB PO PRN (14:51)
[2020-12-14] MEDS ORDERED: ALUMINUM/MAGNESIUM SUSP 30 ML UDC PO PRN (14:51)
[2020-12-14] MEDS ORDERED: BUDESONIDE/FORMOTEROL FUMARATE 160/4.5 60 PUFFS/INHALER INH PRN (14:51)
[2020-12-14] MEDS ORDERED: NALOXONE HCL 0.4 MG/1 ML VIAL/CARP IV PRN (14:51)
[2020-12-14] MEDS ORDERED: MAGNESIUM HYDROXIDE SUSP 30 ML UDC PO PRN (14:51)
[2020-12-14] MEDS ORDERED: dexAMETHasone 8 MG in SYRINGE 0 ML IV PRN (14:51)
[2020-12-14] MEDS ORDERED: ACETAMINOPHEN 500 MG TAB PO PRN (14:51)
[2020-12-14] MEDS ORDERED: DO NOT ADMINISTER PNEUMOCOCCAL VACCINE PRN (14:51)
[2020-12-14] MEDS ORDERED: HYDROmorphone INJ 0.5 MG/0.5 ML SYR IV PRN (14:51)
[2020-12-14] MEDS ORDERED: NITROGLYCERIN SL 0.4 MG/TAB TAB SL PRN (14:51)
[2020-12-14] MEDS ORDERED: ACETAMINOPHEN 1,000 MG/100 ML VIAL IV PRN (14:51)
[2020-12-14] MEDS ORDERED: DO NOT ADMINISTER FLU VACCINE PRN (14:51)
[2020-12-14] MEDS ORDERED: PHARMACY GLYCEMIC MGMT CONSULT PRN (14:51)
[2020-12-14] MEDS ORDERED: hydrOXYzine HCl 25 MG TAB PO PRN (14:51)
[2020-12-14] MEDS ORDERED: PROMETHAZINE HCL 25 MG TAB PO PRN (14:51)
[2020-12-14] MEDS ORDERED: diphenhydrAMINE Capsule 25 MG CAP PO PRN (14:51)
[2020-12-14] MEDS ORDERED: FAMOTIDINE 20 MG TAB PO PRN (14:51)
[2020-12-14] MEDS ORDERED: RACEPINEPHRINE 2.25% NEBU SOLN 0.5 ML VIAL INH PRN (14:51)
[2020-12-14] MEDS ORDERED: LORazepam 0.5 MG TAB PO PRN ×2 (14:51)
[2020-12-14] MEDS ORDERED: METOCLOPRAMIDE HCL INJ 5 MG/ML 2 ML VIAL IV PRN (14:51)
[2020-12-14] MEDS ORDERED: PROMETHAZINE HCL 12.5 MG in SODIUM CHLORIDE 0.9% 50 ML IV PRN (14:51)
--- NOTE | 2020-12-14 15:14 | Pharmacy Report ---
Pharmacy Glycemic Short Note 2 - Date of Service December 14, 2020 - Glycemic Short BSG Results (Last 24 hours): 12/14/20 12/14/20 12/14/20 05:32 10:03 13:15 POC Glucose 133 H 125 H 197 H 12/14/20 13:27 POC Glucose 191 H OUTPATIENT ANTIDIABETIC REGIMEN: * Novolog with meals - 20 units, 40 units, 50 units + sliding scale, up to 150 units/day * Tresiba 80 units SQ HS * Ozempic 1mg SQ weekly ASSESSMENT: * 55 year old male, s/p spinal surgery, type 2 diabetic on large amounts of insulin at home, received Dexamethasone 8mg IV x 1 in OR today * NPH and overnight accuchecks to cover steroids, home dose of basal, weight based CF/CR and titrate to goal blood sugar * ADA & AACE recommend a goal blood sugar range 140-180 mg/dl for the majority of critically ill & non-critically ill patients. However, more stringent targets may be selected in individual cases. Will utilize more stringent goal of 110-140mg/dl based on patient age & comorbidities. Additionally, tighter glycemic control is warranted to facilitate wound/infection healing. PLAN FOR INPATIENT GLYCEMIC CONTROL: * Hold outpatient Ozempic * Basal insulin * Lantus 80 units SQ HS * NPH 50 units (0.4units/kg) x 1 dose now * Bolus insulin * NovoLog per scale ACHS or Q6hrs while NPO and overnight at 00,04 * Goal Range: Low 110 mg/dL - High 140 mg/dL * Correction Factor: 10 mg/dL/unit * Nutritional / Prandial insulin per carb ratio of 1 unit per 3 grams CHO consumed PLAN FOR DISCHARGE: * to be determined
--- NOTE | 2020-12-14 15:18 | Hospitalist Consultation ---
Date of Consultation December 14, 2020 Assessment & Plan (1) Status post spinal surgery: Pain management per Ortho spine Radicular symptoms appear to be improving from his operation. 2 L/min O2 postoperatively, continue to do spirometry and wean as able. (2) Cervical myelopathy: Improving post surgery as above (3) Chronic diastolic CHF (congestive heart failure), NYHA class 2: Unclear diagnosis as patient never had pulmonary edema per recollection. Continue IV fluids as ordered Resume torsemide in Am as ordered (4) CAD (coronary artery disease): Minimal on cardiac catheterization in May 2015 showing luminal irregularities only. No urgent need to restart on aspirin Continue metoprolol succinate 25 mg p.o. every morning and atorvastatin 40 mg p.o. at bedtime (5) Dyslipidemia: Continue atorvastatin (6) Hypertension: Continue metoprolol succinate 25 mg p.o. daily Vital signs acceptable postoperatively (7) Sleep apnea: CPAP at bedtime when able per orthopedic recommendations with his cervical collar. Okay to be temporarily off this. (8) Uncontrolled type 2 diabetes mellitus: Pharmacy consulted for glycemic control -we will follow glucose levels and discussed with pharmacy adjustments if necessary HbA1c 7.4 (9) Chronic pelvic pain in male: Noted generalized pain in calves, upper thighs and abdomen (10) Asthma: Would recommend scheduled Symbicort twice daily postoperatively. He can get back to as needed on discharge. No current wheezing to suggest acute asthma exacerbation (11) GERD (gastroesophageal reflux disease): Under control on Nexium, switch to pantoprazole per hospital formulary (12) Depression: Continue fluoxetine 30 mg p.o. daily (13) BPH (benign prostatic hyperplasia): On no medications for this. Monitor for urinary retention. VTE prophylaxis - per ortho spine, SCDs Disposition - medically stable Thank you for the consult we will continue to see daily during his inpatient stay. History of Present Illness Reason for Consultation: Postop spine, type 2 diabetes, asthma, cardiac history Attending Physician: Aysha Moon MD History of Present Illness Tommie Gomez is a 55 year old male here for elective cervical spinal surgery performed by Dr. Moon today. Anterior Cervical Discectomy and Fusion C6-C7 and Removal of Hardware Anterior C4-C6. EBL 150ml. Main symptom prior to back surgery of neck pain but also with right greater than left radicular numbness. The patient reports current pain is under control and radicular symptoms especially in his right hand have significantly improved. He has a number of chronic medical conditions which are well controlled with no medical hospitalizations in the last year: Chronic diastolic heart failure - never hospitalized and no prior history, takes torsemide for leg swelling. Cardiac catheterization - Dr Talbert. Asthma - Symbicort and albuterol use both as needed. Hardly uses it. No hospitalizations within last year. Psoriasis - intermittent steroid cream use. Depression - stable with current prozac dosing Hyperlipidemia - atorvastatin, no prior history of NC or stroke or peripheral artery disease. GERD - Under control with Nexium 40mg PO BID Sleep apnea - CPAP at night, unknown settings T2DM - Ozempic and insulin. HbA1C 7.4 BPH - under control without medication now. HTN - under control with metoprolol Neuropathic pain - uses Lyrica to good effect Allergies Allergy/AdvReac Type Severity Reaction Status Date / Time codeine Allergy Intermediate PRURITIS, Verified 12/14/20 05:26 HIVES Iodinated Contrast Media Allergy Intermediate HIVES Verified 12/14/20 05:26 iodine Allergy Intermediate HIVES WITH Verified 12/14/20 05:26 TOPICAL IODINE meperidine Allergy Intermediate HIVES Verified 12/14/20 05:26 metformin AdvReac Intermediate severe Verified 12/14/20 05:26 diarrhea, cramping omeprazole AdvReac Intermediate Vomiting Verified 12/14/20 05:26 spironolactone AdvReac Intermediate GROWING Verified 12/14/20 05:26 BREASTS adhesive AdvReac Mild SKIN TEARS Verified 12/14/20 05:26 amoxicillin AdvReac Mild GI SYMPTOMS Verified 12/14/20 05:26 clavulanic acid AdvReac Mild GI SYMPTOMS Verified 12/14/20 05:26 meloxicam AdvReac Mild Diarrhea Verified 12/11/20 10:28 Home Medications Medication Instructions Recorded Confirmed Type albuterol sulfate 90 mcg/actuation 2 puffs INH UD PRN 12/03/18 12/14/20 History aerosol inhaler (Proventil HFA) aspirin 81 mg tablet,delayed 81 mg PO QAM tab 12/03/18 12/14/20 History release (Adult Low Dose Aspirin) budesonide-formoterol HFA 160 2 puffs INH BID PRN 12/03/18 12/14/20 History mcg-4.5 mcg/actuation aerosol inhaler (Symbicort) cinnamon bark 500 mg capsule 2,000 mg PO QAM cap 12/03/18 12/14/20 History (Cinnamon) nitroglycerin 0.4 mg sublingual 0.4 mg SL USEASDIRECTD PRN tab 02/02/19 12/14/20 History tablet bismuth subsalicylate 262 mg/15 mL 262 mg PO UD PRN 03/25/19 12/14/20 History oral suspension (Anti-Diarrheal) promethazine 25 mg tablet 25 mg PO UD PRN #30 tab 06/20/19 12/14/20 Rx Dexcom G6 Transmitter #1 ea NS 07/01/19 12/11/20 Rx (blood-glucose transmitter) pen needle, diabetic 32 gauge x 09/26/19 12/11/20 History 32" (BD Ultra-Fine Ivon Pen Needle) oxycodone-acetaminophen 5 mg-325 1 tab PO HS PRN tab 12/07/19 12/14/20 History mg tablet insulin aspart U-100 100 unit/mL 150 units SQ DAILY box 12/19/19 12/14/20 History (3 mL) subcutaneous pen (Novolog Flexpen U-100 Insulin aspart) Nexium 40 mg capsule,delayed 40 mg PO BID #180 cap NS 12/20/19 12/14/20 Rx release (esomeprazole magnesium) diphenhydramine HCl 25 mg capsule 25 mg PO DAILY PRN #90 cap 01/24/20 12/14/20 Rx (Allergy (diphenhydramine)) metoprolol succinate 25 mg capsule 25 mg PO QAM #90 ea 04/25/20 12/14/20 Rx sprinkle, ext. release 24 hr atorvastatin 40 mg tablet 40 mg PO HS #90 tab 07/16/20 12/14/20 Rx ondansetron 4 mg disintegrating 4 mg PO Q6H PRN 90 Days #120 tab 09/06/20 12/14/20 Rx tablet torsemide 20 mg tablet 40 mg PO QAM #200 tab 09/27/20 12/14/20 Rx Lyrica 150 mg capsule (pregabalin) 150 mg PO BID #60 cap NS 10/22/20 12/14/20 Rx potassium chloride 10 mEq 40 meq PO BID 90 Days #720 tab 11/21/20 12/14/20 Rx tablet,extended release celecoxib 200 mg capsule (Celebrex) 200 mg PO QAM 12/03/20 12/14/20 History insulin degludec 200 unit/mL (3 80 unit SQ PM 90 Days #18 syr 12/03/20 12/14/20 Rx mL) subcutaneous pen (Tresiba FlexTouch U-200 insulin) semaglutide 1 mg/dose (2 mg/1.5 1 mg SUBCUT WK 12/03/20 12/14/20 History mL) subcutaneous pen injector (Ozempic) fluoxetine 20 mg tablet 30 mg PO DAILY #45 tab 12/04/20 12/14/20 Rx lorazepam 0.5 mg tablet 0.5 mg PO Q8H PRN #20 tab 12/04/20 12/14/20 Rx Patient History Medical History BPH (benign prostatic hyperplasia) CAD (coronary artery disease) COPD (chronic obstructive pulmonary disease) Depression Diabetes type 2, controlled Diabetic peripheral neuropathy associated with type 2 diabetes mellitus Dyslipidemia GERD (gastroesophageal reflux disease) Hypertension Obesity Osteoarthritis Psoriasis Sleep apnea Spinal stenosis of lumbar region with radiculopathy Surgical History H/O left inguinal hernia repair History of anesthesia reaction History of back surgery History of cardiac cath (~2016) History of carpal tunnel surgery of left wrist History of cholecystectomy History of colonoscopy (12/2016) History of elbow surgery History of esophagogastroduodenoscopy (EGD) (12/2016) History of myelography History of neck surgery History of shoulder surgery Hx of appendectomy Family History Mother Cancer uterine Family history of diabetes mellitus Hypertension Father Cardiac disorder Family history of diabetes mellitus Hypertension Family/Other Gout Sister Sleep apnea Other Coronary heart disease Social History Smoking Status: Never smoker Smoking End Date: 2012; Second Hand Exposure: No; Do You Dip or Chew Tobacco: No; Tobacco Cessation Education Requested by Patient: No Hx Alcohol Use: No Hx Substance Use: No Preferred Language: Azeri Communication Ability: Effective Visual Impairment: Limited Hearing Ability: Normal Patient Services Clerk Required: No Beliefs That Will Affect Care: None marital status: / Current Living Situation: Family Current Living Situation Comment: lives with son current occupational status: unemployed Other Information That Helps Us Care for You: No Feels Safe at Home: Yes Safety Concerns: Feels Safe At This Time Sunscreen Use: Yes (SPF >30) Assistive Devices: Brace/Splint/Immobilizer, Glasses and Hearing Aid - Bilateral Review of Systems Review of Systems: All systems reviewed & are unremarkable except as noted in HPI & below Calf pain since last back surgery worse at night Physical Exam 2 Constitutional: well developed and + obese; no acute distress Eyes: PERRL, conjunctivae normal, anicteric sclerae Neck: cervical collar in place with PASTORA drain scant bloody fluid Respiratory: normal respiratory effort, lungs clear to auscultation Cardiovascular: Rate/Rhythm: regular rate and regular rhythm Heart Sounds: normal S1 and normal S2; no murmur Extremities: normal capillary refill, + calf tenderness (bilateral, chronic pain) and + pedal edema Gastrointestinal (Abdomen): normal bowel sounds, soft, nontender, no hepatosplenomegaly Neurologic: moves all extremities (ankle dorsi/plantarflex equal b/l) and awake; not confused Motor/Sensory: + sensory deficit (improved right C6 dermatomal distribution) Psychiatric: A+Ox3, euthymic affect Results & Data Results & Data ([facility]) Vital Signs (Past 12 Hours) Vital Signs Temp Pulse Pulse Resp BP BP BP 12/14/20 15:04 36.8 C 93 H 18 119/73 119/73 12/14/20 14:35 37 C 90 18 106/70 12/14/20 14:20 91 H 16 124/72 132/82 12/14/20 14:10 90 16 132/82 12/14/20 14:00 36.3 C L 94 H 16 133/82 12/14/20 13:50 36.3 C L 96 H 16 130/77 12/14/20 13:40 101 H 20 115/72 12/14/20 13:30 105 H 20 134/74 12/14/20 13:20 105 H 20 139/95 139/77 12/14/20 13:11 36.7 C 110 H 20 139/95 12/14/20 05:40 36.8 C 85 20 130/97 Pulse Ox Pulse Ox 12/14/20 15:04 96 12/14/20 14:35 95 95 12/14/20 14:20 98 12/14/20 14:10 98 12/14/20 14:00 98 12/14/20 13:50 97 12/14/20 13:40 92 12/14/20 13:30 94 12/14/20 13:20 94 12/14/20 13:11 91 12/14/20 05:40 96 Laboratory Results Postoperative labs ordered for tomorrow PG Care Time/CCT Total # of Minutes Spent Total Time Spent with Patient: Total time spent is greater than 50% in coordination of care (as documented) at patient's floor/unit and/or counseling patient: Coding Level of Care Code 19331 Inpt Consult Level 4 Diagnoses Chronic diastolic CHF (congestive heart failure), NYHA class 2 I50.32 Uncontrolled type 2 diabetes mellitus E11.65 Chronic pelvic pain in male R10.2; G89.29 Status post spinal surgery Z98.890 Cervical myelopathy G95.9 BPH (benign prostatic hyperplasia) N40.0 Dyslipidemia E78.5 Sleep apnea G47.30 CAD (coronary artery disease) I25.10 Asthma J45.909 GERD (gastroesophageal reflux disease) K21.9 Hypertension I10 Depression F32.9
[2020-12-14] MEDS ORDERED: NovoLIN-N (NPH) PER UNIT CHARGE SQ ONE (15:30)
--- NOTE | 2020-12-14 15:38 | XRay Report ---
XR cervical 1V HISTORY: 55 years-old Male ACDF C6-C7- DONE IN OR chronic neck pain COMPARISON: MRI cervical spine 11/15/2020 TECHNIQUE: 3 views of the cervical spine FINDINGS: The first image demonstrates anterior plate and screw fusion hardware C4-C6. The second image demonst rates removal of the hardware at these levels. Partially imaged hardware is noted at what appears to be the C6-C7 level which is suboptimally visualized secondary to positioning and overlying soft tissu e. Endotracheal tube is noted. A radiopaque surgical sponge is noted within the prevertebral operativ e bed. Moderate intervertebral disc space narrowing with spondylitic spurring at C3-C4. No acute frac ture identified. IMPRESSION: Intraoperative cervical spine radiographs as above. ACT 112: Negative or not required by law. The above report was generated using voice recognition software. It may contain grammatical, syntax o r spelling errors. Electronically signed by: Mich Perez M.D. 12/14/2020 3:37 PM
[2020-12-14] MEDS: CYCLOBENZAPRINE HCL 10 MG TAB PO SCH ×2 (16:02→21:47)
[2020-12-14] MEDS: LACTATED RINGER'S 1,000 ML IV SCH (16:02)
[2020-12-14] MEDS: ceFAZolin 2000MG 2,000 MG/15 ML SYR IV SCH ×2 (16:04→23:24)
[2020-12-14] MEDS: oxyCODONE/ACETAMINOPHEN 5mg/325mg TAB PO PRN ×2 (17:08→22:01)
[2020-12-14] MEDS: INSULIN ASPART 100 UNITS/ML 3 ML PEN SQ SCH ×2 (17:18→21:43)
[2020-12-14] MEDS ORDERED: INSULIN GLARGINE SOLOSTAR 100 UNITS/ML 3 ML PEN SC SCH (21:00)
[2020-12-14] MEDS: PANTOprazole 40 MG TAB PO SCH (21:45)
[2020-12-14] MEDS: DOCUSATE SODIUM/SENNA 50/8.6MG TAB PO SCH (21:47)
[2020-12-14] MEDS: ATORVASTATIN 40 MG TAB PO SCH (21:47)
[2020-12-14] MEDS: POTASSIUM CHLORIDE CRTAB 20 MEQ TABCR PO SCH (21:47)
[2020-12-14] MEDS: FLUTICASONE/VILANTEROL 100/25MCG 14 PUFFS/INHALER INH SCH (21:48)
[2020-12-14] MEDS: PREGABALIN 150 MG CAP PO SCH (22:01)
[2020-12-15] MEDS: LACTATED RINGER'S 1,000 ML IV SCH (01:18)
[2020-12-15] MEDS: CYCLOBENZAPRINE HCL 10 MG TAB PO SCH ×3 (05:18→21:31)
[2020-12-15] MEDS: POLYETHYLENE (MIRALAX) 17 GM PACK PO SCH ×4 (05:22→21:34)
[2020-12-15 06:27] LABS: Basophils # (auto) 0.01 K/uL (0-0.2); Basophils % (auto) 0.1 %; Hematocrit (blood only) 38.9 % (42-52); Hemoglobin 13.8 g/dL (14.0-18.0); Immature Granulocytes # (auto) 0.02 K/uL (0.00-0.02); Immature Granulocytes % (auto) 0.1 %; Lymphocytes % (auto) 12.8 %; Mean Corpuscular Hemoglobin 32.7 pg (25-34); Mean Corpuscular Hgb Conc 35.5 g/dL (32-36); Mean Corpuscular Volume 92.2 fL (80-100); Monocytes # (auto) 1.27 K/uL (0.11-0.59); Platelet Count 283 K/uL (130-400); RDW Coefficient of Variation 13.4 % (11.5-14.5); RDW Standard Deviation 45.1 fL (36.4-46.3); Red Blood Count 4.22 M/uL (4.7-6.1)
[2020-12-15 06:54] LABS: BUN Creatinine Ratio 8.2 (10-20); Calcium 8.8 mg/dl (8.5-10.1); Creatinine Clr Calc Pharmacy 119.4 ml/min; Est GFR (African American) 106.6 ml/min; Potassium 4.3 mmol/L (3.5-5.1)
[2020-12-15] MEDS: oxyCODONE/ACETAMINOPHEN 5mg/325mg TAB PO PRN ×2 (07:13→19:28)
[2020-12-15] MEDS: PANTOprazole 40 MG TAB PO SCH ×2 (08:38→21:30)
[2020-12-15] MEDS: PREGABALIN 150 MG CAP PO SCH ×2 (08:40→21:27)
[2020-12-15] MEDS: POTASSIUM CHLORIDE CRTAB 20 MEQ TABCR PO SCH ×2 (08:40→21:27)
[2020-12-15] MEDS: TORSEMIDE 20 MG TAB PO SCH (08:40)
[2020-12-15] MEDS: FLUoxetine HCL 10 MG CAP PO SCH (08:41)
[2020-12-15] MEDS: METOPROLOL SUCC 25MG EXT REL TAB PO SCH (08:41)
[2020-12-15] MEDS: INSULIN ASPART 100 UNITS/ML 3 ML PEN SQ SCH ×4 (08:42→21:29)
--- NOTE | 2020-12-15 12:58 | Hospitalist Progress Note ---
Date of Service December 15, 2020 Assessment & Plan (1) Status post spinal surgery: Plan: Pain management per Ortho spine Radicular symptoms appear to be improving from his operation. 1 L/min O2 postoperatively, continue to do spirometry and wean as able. (2) Cervical myelopathy: Plan: Improving post surgery as above (3) Chronic diastolic CHF (congestive heart failure), NYHA class 2: Plan: Unclear diagnosis as patient never had pulmonary edema per recollection. Continue IV fluids as ordered Continue torsemide 40mg PO daily (4) CAD (coronary artery disease): Plan: Minimal on cardiac catheterization in May 2015 showing luminal irregularities only. No urgent need to restart on aspirin Continue metoprolol succinate 25 mg p.o. every morning and atorvastatin 40 mg p.o. at bedtime (5) Dyslipidemia: Plan: Continue atorvastatin (6) Hypertension: Plan: Continue metoprolol succinate 25 mg p.o. daily Vital signs stable (7) Sleep apnea: Plan: CPAP HS as discussed with Dr Moon (8) Uncontrolled type 2 diabetes mellitus: Plan: Pharmacy consulted for glycemic control - glucose levels well controlled on current regimen HbA1c 7.4 (9) Chronic pelvic pain in male: Plan: Noted generalized pain in calves, upper thighs and abdomen (10) Asthma: Plan: Continue Symbicort CHUCKY while inpatient No current wheezing to suggest acute asthma exacerbation (11) GERD (gastroesophageal reflux disease): Plan: Under control on Nexium, switch to pantoprazole per hospital formulary (12) Depression: Plan: Continue fluoxetine 30 mg p.o. daily (13) BPH (benign prostatic hyperplasia): Plan: On no medications for this. Monitor for urinary retention. Plan: VTE prophylaxis - per ortho spine, SCDs Disposition - medically stable Thank you for the consult we will continue to see daily during his inpatient stay. Admission and Anticipated Discharge Date Admission Date: December 14, 2020 Subjective Continued improvement in radicular upper extremities symptoms. Reports IV yesterday would have previously been numb but hurt when it went in. Continued mild hypoxia but not short of breath - suspect combination of MARY JANE, cervical collar restriction and obesity hypoventilation - improving. No BM but passing lots of flatus and belching. Review of Systems Review of Systems: All systems reviewed & are unremarkable except as noted in HPI & below Physical Exam Constitutional: well developed and + obese; no acute distress Eyes: + anicteric sclerae; normal pupil size Neck: cervical collar in place with PASTORA drain scant bloody fluid Respiratory: normal respiratory effort, lungs clear to auscultation Cardiovascular: Rate/Rhythm: regular rate and regular rhythm Heart Sounds: normal S1 and normal S2; no murmur Extremities: normal capillary refill, + calf tenderness (bilateral, chronic pain) and + pedal edema Gastrointestinal (Abdomen): normal bowel sounds, soft, nontender, no hepatosplenomegaly Neurologic: moves all extremities (ankle dorsi/plantarflex equal b/l) and awake; not confused Psychiatric: A+Ox3, euthymic affect Results & Data Results & Data ([facility]) Vital Signs (Past 12 Hours) Vital Signs Temp Pulse Resp BP BP Pulse Ox 12/15/20 11:54 37 C 82 18 137/81 98 12/15/20 11:00 74 16 94 12/15/20 09:40 37.2 C 82 18 112/78 93 12/15/20 07:36 71 15 94 12/15/20 07:05 36.5 C 74 18 122/79 97 12/15/20 05:15 36.6 C 69 14 121/75 94 12/15/20 03:18 85 18 99 12/15/20 03:15 36.6 C 79 14 120/80 96 12/15/20 01:15 36.7 C 87 14 121/78 96 PG Care Time/CCT Total # of Minutes Spent Total Time Spent with Patient: Total time spent is greater than 50% in coordination of care (as documented) at patient's floor/unit and/or counseling patient: Coding Level of Care Code 06637 Subseq Hosp Care Lvl 2 Diagnoses Status post spinal surgery Z98.890 Cervical myelopathy G95.9 Chronic diastolic CHF (congestive heart failure), NYHA class 2 I50.32 CAD (coronary artery disease) I25.10 Dyslipidemia E78.5 Hypertension I10 Sleep apnea G47.30 Uncontrolled type 2 diabetes mellitus E11.65 Chronic pelvic pain in male R10.2; G89.29 Asthma J45.909 GERD (gastroesophageal reflux disease) K21.9 Depression F32.9 BPH (benign prostatic hyperplasia) N40.0
--- NOTE | 2020-12-15 13:33 | Orthopedic Progress Note ---
Date of Service December 15, 2020 Assessment & Plan (1) Status post spinal surgery: Plan: start home CPAP monitor drain output d/c home likely tomorrow Admission and Anticipated Discharge Date Admission Date: December 14, 2020 Subjective new numbness/weakness subjective improved strength right upper extremity as per patient some post-op hoarseness mild dysphagia. Drinking well/eating well pain well-controlled Hgb 13.8 this AM Glucose 123 this AM Physical Exam Physical Exam: vitals: see vital signs section; on 1LNP (home CPAP not started) neck: soft, non-distended dressing: clean, dry intact drain: 5 cc/8hr vascular: no calf tenderness or swelling bilaterally. no signs of DVT neuro: Musculoskeletal: 5/5 motor strength bilateral C5-T1, L2-S1 except right C5 4+/5, C7 4/5, C8 4+/5. Neurologic: Sensation 2/2 to light touch bilateral C5-T1, L2-S1 except right C7 1/2, bilateral feet and ankle in [id number] distribution 1/2. Results & Data ([facility]) Vital Signs (Past 12 Hours) Vital Signs Temp Pulse Resp BP BP Pulse Ox 12/15/20 11:54 37 C 82 18 137/81 98 12/15/20 11:00 74 16 94 12/15/20 09:40 37.2 C 82 18 112/78 93 12/15/20 07:36 71 15 94 12/15/20 07:05 36.5 C 74 18 122/79 97 12/15/20 05:15 36.6 C 69 14 121/75 94 12/15/20 03:18 85 18 99 12/15/20 03:15 36.6 C 79 14 120/80 96 Diagnostic Findings post-op x-ray cervical spine: hardware in acceptable alignment PG Care Time/CCT Total # of Minutes Spent Total Time Spent with Patient: Total time spent is greater than 50% in coordination of care (as documented) at patient's floor/unit and/or counseling patient: Coding Level of Care Code None Diagnoses Status post spinal surgery Z98.890
--- NOTE | 2020-12-15 13:33 | XRay Report ---
CERVICAL SPINE 5 VIEWS HISTORY: post-op spine surgery COMPARISON: October 25, 2020 FINDINGS: No definite acute fracture or dislocation is seen. There is loss of normal cervical lordosis. Interval removal of the ACDF from C4-C6 level. Interval placement of orthopedic hardware into anato mical region of the C7 and probably T1 level however evaluation is limited due to overlying patient's shoulder. Anterior osteophytes are seen at the C3. Evaluation is limited due to diffuse osteopenia. IMPRESSION: No definite acute fracture or traumatic malalignment is seen. Interval replacement of orthopedic hardware as detailed above. Limited evaluation due to overlying pa tient's shoulder and diffuse osteopenia. ACT 112: Negative or not required by law. Electronically signed by: Thalia Hall DO 12/15/2020 1:32 PM
[2020-12-15] MEDS ORDERED: INSULIN GLARGINE SOLOSTAR 100 UNITS/ML 3 ML PEN SC SCH (21:00)
[2020-12-15] MEDS: ATORVASTATIN 40 MG TAB PO SCH (21:26)
[2020-12-15] MEDS: DOCUSATE SODIUM/SENNA 50/8.6MG TAB PO SCH (21:27)
[2020-12-15] MEDS: FLUTICASONE/VILANTEROL 100/25MCG 14 PUFFS/INHALER INH SCH (21:27)
[2020-12-16] MEDS: POLYETHYLENE (MIRALAX) 17 GM PACK PO SCH ×2 (06:24→13:13)
[2020-12-16] MEDS: CYCLOBENZAPRINE HCL 10 MG TAB PO SCH ×2 (06:24→14:49)
[2020-12-16] MEDS: INSULIN ASPART 100 UNITS/ML 3 ML PEN SQ SCH ×3 (08:41→17:44)
[2020-12-16] MEDS: POTASSIUM CHLORIDE CRTAB 20 MEQ TABCR PO SCH (08:44)
[2020-12-16] MEDS: FLUoxetine HCL 10 MG CAP PO SCH (08:44)
[2020-12-16] MEDS: TORSEMIDE 20 MG TAB PO SCH (08:45)
[2020-12-16] MEDS: PANTOprazole 40 MG TAB PO SCH (08:45)
[2020-12-16] MEDS: METOPROLOL SUCC 25MG EXT REL TAB PO SCH (08:45)
[2020-12-16] MEDS: PREGABALIN 150 MG CAP PO SCH (08:50)
--- NOTE | 2020-12-16 09:50 | Orthopedic Progress Note ---
Date of Service December 16, 2020 Assessment & Plan (1) Status post spinal surgery: Plan: september d/c home once cleared from oxygen perspective by hospitalist service please change dressing prior to discharge Admission and Anticipated Discharge Date Admission Date: December 14, 2020 Subjective correction to previous note from yesterday, should state: no new numbness/weakness subjective improved strength right upper extremity as per patient some post-op hoarseness resolving dysphagia. Drinking well/eating well solids and liquids ate his entire breakfast this AM pain well-controlled Physical Exam Physical Exam: vitals: see vital signs section; on 1LNP (home CPAP overnight) neck: soft, non-distended dressing: mild serosang discharge from drain site drain: remove yesterday vascular: no calf tenderness or swelling bilaterally. no signs of DVT neuro: Musculoskeletal: 5/5 motor strength bilateral C5-T1, L2-S1 except right C5 4+/5, C7 4/5, C8 4+/5. Neurologic: Sensation 2/2 to light touch bilateral C5-T1, L2-S1 except right C7 1/2, bilateral feet and ankle in [id number] distribution 1/2. Results & Data ([facility]) Vital Signs (Past 12 Hours) Vital Signs Temp Pulse Pulse Resp BP Pulse Ox 12/16/20 08:10 78 16 92 12/16/20 07:20 36.4 C L 87 16 120/79 92 12/16/20 04:06 36.7 C 81 18 121/81 94 12/16/20 03:22 78 18 93 12/16/20 03:21 78 18 93 12/15/20 23:28 82 16 94 12/15/20 23:05 37.1 C 82 18 112/79 93 12/15/20 22:20 90 15 93 12/15/20 22:18 90 15 93 PG Care Time/CCT Total # of Minutes Spent Total Time Spent with Patient: Total time spent is greater than 50% in coordination of care (as documented) at patient's floor/unit and/or counseling patient: Coding Level of Care Code None Diagnoses Status post spinal surgery Z98.890
[2020-12-16 10:01] LABS: Basophils # (auto) 0.02 K/uL (0-0.2); Basophils % (auto) 0.2 %; Eosinophils # (auto) 0.06 K/uL (0-0.5); Eosinophils % (auto) 0.6 %; Hematocrit (blood only) 44.8 % (42-52); Hemoglobin 15.1 g/dL (14.0-18.0); Immature Granulocytes # (auto) 0.03 K/uL (0.00-0.02); Immature Granulocytes % (auto) 0.3 %; Lymphocytes # (auto) 2.88 K/uL (1.2-3.4); Lymphocytes % (auto) 26.7 %; Mean Corpuscular Hemoglobin 31.3 pg (25-34); Mean Corpuscular Hgb Conc 33.7 g/dL (32-36); Mean Corpuscular Volume 92.9 fL (80-100); Monocytes # (auto) 1.16 K/uL (0.11-0.59); Monocytes % (auto) 10.8 %; Neutrophils # (auto) 6.64 K/uL (1.4-6.5); Neutrophils % (auto) 61.4 %; Platelet Count 278 K/uL (130-400); RDW Coefficient of Variation 13.7 % (11.5-14.5); RDW Standard Deviation 46.7 fL (36.4-46.3); Red Blood Count 4.82 M/uL (4.7-6.1); White Blood Count 10.79 K/uL (4.8-10.8)
--- NOTE | 2020-12-16 10:14 | Pharmacy Report ---
Pharmacy Glycemic Short Note 2 - Date of Service December 16, 2020 - Glycemic Short BSG Results (Last 24 hours): 12/15/20 12/15/20 12/15/20 12:22 17:05 21:02 POC Glucose 163 H 121 H 144 H 12/16/20 12/16/20 12/16/20 00:09 04:04 08:04 POC Glucose 103 H 110 H 125 H OUTPATIENT ANTIDIABETIC REGIMEN: * Novolog with meals - 20 units, 40 units, 50 units + sliding scale, up to 150 units/day * Tresiba 80 units SQ HS * Ozempic 1mg SQ weekly * HbA1c = 7.4% (12/03/20) ASSESSMENT: 12/16: * Tommie received a total of 138 units of insulin yesterday (80 units basal + 58 units bolus) * BSGs controlled yesterday: [phone] mg/dL * Fasting BSG at goal this AM: 125 mg/dL * No changes necessary today 12/14: * 55 year old male, s/p spinal surgery, type 2 diabetic on large amounts of insulin at home, received Dexamethasone 8mg IV x 1 in OR today * NPH and overnight accuchecks to cover steroids, home dose of basal, weight based CF/CR and titrate to goal blood sugar * ADA & AACE recommend a goal blood sugar range 140-180 mg/dl for the majority of critically ill & non-critically ill patients. However, more stringent targets may be selected in individual cases. Will utilize more stringent goal of 110-140mg/dl based on patient age & comorbidities. Additionally, tighter glycemic control is warranted to facilitate wound/infection healing. PLAN FOR INPATIENT GLYCEMIC CONTROL: * Hold outpatient Ozempic * Basal insulin * Lantus 80 units SC HS * Bolus insulin * NovoLog per scale ACHS or Q6hrs while NPO and overnight at 00,04 * Goal Range: Low 110 mg/dL - High 140 mg/dL * Correction Factor: 10 mg/dL/unit * Nutritional / Prandial insulin per carb ratio of 1 unit per 3 grams CHO consumed PLAN FOR DISCHARGE: * HbA1c of 7.4% is slightly above goal of less than 7% for this patient. This has increased from previous HbA1c of 6.7% in July 2020. * Reportedly forgets Novolog with lunch and dinner often. * Follows with [facility]. Continue to follow as an outpatient. * No changes recommended.
[2020-12-16 10:22] LABS: BUN Creatinine Ratio 14.6 (10-20); Calcium 8.7 mg/dl (8.5-10.1); Creatinine Clr Calc Pharmacy 96.4 ml/min; Est GFR (African American) 82.3 ml/min; Potassium 3.5 mmol/L (3.5-5.1)
--- NOTE | 2020-12-16 10:36 | XRay Report ---
TWO VIEW CHEST CLINICAL HISTORY: Hypoxia. FINDINGS: PA and lateral chest radiographs are compared to study dated 12/03/2020 and correlated with chest CT dated 03/11/2015. The heart is top normal for projection. There is bibasilar scarring/atelect asis. No airspace consolidation or pleural effusion is identified. There is no pneumothorax. The bony thorax appears intact. Fusion hardware is noted in the lower cervical spine. Cholecystectomy clips a re noted in the right upper quadrant. IMPRESSION: No active disease in the chest. ACT 112: Negative or not required by law. Electronically signed by: Danish Steen M.D. 12/16/2020 10:35 AM
--- NOTE | 2020-12-16 11:57 | Hospitalist Progress Note ---
Date of Service December 16, 2020 Assessment & Plan (1) Status post spinal surgery: Plan: Pain management per Ortho spine Radicular symptoms appear improved post surgery. (2) Hypoxia: Plan: 91-92% on room air after walking back from the bathroom. On walking around the lee 89-90%. Similar hypoxia after lumbar spinal stenosis surgery in 2019. CXR negative for infection. Procalcitonin negative. Labs all improving. Medically stable for discharge at this time. Does not need home O2. Suspect combination of cervical collar, obesity hypoventilation, post surgery atelectasis (3) Cervical myelopathy: Plan: Improving post surgery as above (4) Chronic diastolic CHF (congestive heart failure), NYHA class 2: Plan: Unclear diagnosis as patient never had pulmonary edema per recollection. Continue torsemide 40mg PO daily (5) CAD (coronary artery disease): Plan: Minimal on cardiac catheterization in May 2015 showing luminal irregularities only. No urgent need to restart on aspirin Continue metoprolol succinate 25 mg p.o. every morning and atorvastatin 40 mg p.o. at bedtime (6) Dyslipidemia: Plan: Continue atorvastatin (7) Hypertension: Plan: Continue metoprolol succinate 25 mg p.o. daily Vital signs stable (8) Sleep apnea: Plan: CPAP HS as discussed with Dr Moon (9) Uncontrolled type 2 diabetes mellitus: Plan: Pharmacy consulted for glycemic control - glucose levels well controlled on current regimen No changes to insulin regimen on discharge recommended. HbA1c 7.4 (10) Chronic pelvic pain in male: Plan: Noted generalized pain in calves, upper thighs and abdomen. Interestingly the pain in his calves has improved post cervical spine surgery. (11) Asthma: Plan: Continue Symbicort CHUCKY while inpatient No current wheezing to suggest acute asthma exacerbation (12) GERD (gastroesophageal reflux disease): Plan: Under control on Nexium, switch to pantoprazole per hospital formulary (13) Depression: Plan: Continue fluoxetine 30 mg p.o. daily (14) BPH (benign prostatic hyperplasia): Plan: On no medications for this. Monitor for urinary retention. Plan: VTE prophylaxis - per ortho spine, SCDs Disposition - medically stable for discharge Thank you for the consult we will continue to see daily during his inpatient stay. Admission and Anticipated Discharge Date Admission Date: December 14, 2020 Subjective Improving pain in his bilateral upper and lower extremities. Improving strength in right upper extremity. Dysphagia with straws and cervical collar tightness Still having some mild hypoxia despite CPAP last night (although unknown home settings so possible pressure not enough). No shortness of breath or chest pain. Measuring O2 sats on right side appears better than left - cap refill time b/lUE equal 3 s. Review of Systems Review of Systems: All systems reviewed & are unremarkable except as noted in HPI & below Physical Exam Constitutional: well developed and + obese; no acute distress Eyes: + anicteric sclerae; normal pupil size Neck: Cervical collar in place Respiratory: normal respiratory effort, lungs clear to auscultation Cardiovascular: Rate/Rhythm: regular rate and regular rhythm Heart Sounds: normal S1 and normal S2; no murmur Extremities: normal capillary refill, + calf tenderness (resolved) and + pedal edema (trace equal b/l) Gastrointestinal (Abdomen): normal bowel sounds, soft, nontender, no hepatosplenomegaly Neurologic: moves all extremities and awake; not confused Psychiatric: A+Ox3, euthymic affect Results & Data Results & Data ([facility]) Vital Signs (Past 12 Hours) Vital Signs Temp Pulse Pulse Pulse Resp BP Pulse Ox 12/16/20 11:46 78 16 97 12/16/20 08:10 78 16 92 12/16/20 07:20 36.4 C L 87 16 120/79 92 12/16/20 04:06 36.7 C 81 18 121/81 94 12/16/20 03:22 78 18 93 12/16/20 03:21 78 18 93 PG Care Time/CCT Total # of Minutes Spent Total Time Spent with Patient: Total time spent is greater than 50% in coordination of care (as documented) at patient's floor/unit and/or counseling patient: Coding Level of Care Code 83440 Subseq Hosp Care Lvl 2 Diagnoses Status post spinal surgery Z98.890 Cervical myelopathy G95.9 Chronic diastolic CHF (congestive heart failure), NYHA class 2 I50.32 CAD (coronary artery disease) I25.10 Dyslipidemia E78.5 Hypertension I10 Sleep apnea G47.30 Uncontrolled type 2 diabetes mellitus E11.65 Chronic pelvic pain in male R10.2; G89.29 Asthma J45.909 GERD (gastroesophageal reflux disease) K21.9 Depression F32.9 BPH (benign prostatic hyperplasia) N40.0 Hypoxia R09.02
--- NOTE | 2020-12-16 12:18 | Discharge Summary ---
Date of Service December 16, 2020 Principal Diagnosis cervical myelopathy Discharge Data Allergies Allergy/AdvReac Type Severity Reaction Status Date / Time codeine Allergy Intermediate PRURITIS, Verified 12/14/20 05:26 HIVES Iodinated Contrast Media Allergy Intermediate HIVES Verified 12/14/20 05:26 iodine Allergy Intermediate HIVES WITH Verified 12/14/20 05:26 TOPICAL IODINE meperidine Allergy Intermediate HIVES Verified 12/14/20 05:26 metformin AdvReac Intermediate severe Verified 12/14/20 05:26 diarrhea, cramping omeprazole AdvReac Intermediate Vomiting Verified 12/14/20 05:26 spironolactone AdvReac Intermediate GROWING Verified 12/14/20 05:26 BREASTS adhesive AdvReac Mild SKIN TEARS Verified 12/14/20 05:26 amoxicillin AdvReac Mild GI SYMPTOMS Verified 12/14/20 05:26 clavulanic acid AdvReac Mild GI SYMPTOMS Verified 12/14/20 05:26 meloxicam AdvReac Mild Diarrhea Verified 12/11/20 10:28 Consultations 12/14/20 14:51 Consult Hospitalist Routine Procedures Performed Operation Date: 12/14/20 07:15 Actual Procedures p Anterior Cervical Discectomy and Fusion C6-C7, Removal of Hardware Anterior C4-C6, Autograft, Allograft, Spinal Cord Monitoring(Not Applicable) - Aysha Moon MD Hospital Course (1) Status post spinal surgery: Patient underwent the above mentioned procedure. There were no complications noted intra-op. Post-operatively, patient was sent to recovery and then floor. Pain was well-controlled throughout stay. Drain was removed on post- op day 1. Patient was followed closely by hospitalist service throughout stay and was cleared for discharge medically by this team. Home CPAP was used during stay. Patient was able to ambulate, void, and tolerate PO intake at time of discharge. Verbal discharge and follow-up instructions were given. Total Time Total Time Spent Total Time Spent (In Minutes): 25 Discharge Plan Discharge Items Patient Disposition: Home - Self-Care Reason For Visit: Cervical Myelopathy Discharge Diagnosis: Cervical myelopathy Activity: Per Instructions section Non-emergency contact: Surgeon Call non-emergency contact if: you have any medication questions Follow-up/Referrals: Jacki Phelan MD [Primary Care Provider] - Diet: Carb Consistent or DM2 Addtl Attending Provider Instructions: Anterior Cervical Decompression Fusion (ACDF) Recovery Please do not take your Aspirin home medication for 5 days post-op. What to expect You've had surgery, the first step toward the goals of decreasing neck and/or arm pain, and stopping symptoms of spinal cord compression from getting worse. Now it's time to focus on healing. By following these tips, you will set yourself up for a successful outcome after surgery. Top 4 things to know 1. Pain in the back of the neck and between the shoulder blades is common after ACDF surgery. It also is normal to have some swallowing difficulty. These usually get better over the next few weeks. If you have trouble breathing, call 911 or go to an emergency room immediately. 2. Do not use nicotine for at least three months. Nicotine will slow down your healing. 3. Avoid taking anti-inflammatory medications (NSAIDs) for six to 12 weeks or until your surgeon tells you it's safe to use them. NSAIDs include ibuprofen (Motrin, Advib), naproxen (Aleve, Naprosyn), meloxicam (Mobic), Celebrex and diclofenac. 4. In some cases, you do not need a collar after surgery. If your surgeon gave you one, you should wear it as directed until your first follow-up appointment. Avoid excessive bending and twisting of your neck after surgery. Your surgeon will decide when your collar can come off. Breathing If you have any trouble breathing or have excessive swelling in your neck, call 911 or go to an emergency room immediately. Pain and weakness Neck pain, pain between the shoulder blades and a funny feeling when you swallow are normal after ACDF. These should get better over the next few weeks. Numbness, tingling and weakness that you had before surgery may take time to improve. Your collar If you were given a collar to wear, the goal of it is to keep your chin up and away from your chest. Your chin needs to be on top of the collar, not down in the collar. Wear your collar until your first follow-up appointment after surgery. You may take the collar off to shower. While the collar is off, keep your head as still as possible and your chin up. Taking care of your incision You can take your dressing off when you get home from the hospital. Underneath the dressing you will have adhesive wound closures (Steri-strips) over your incision when you come home from the hospital. These will fall off on their own within 14 days. If they have not fallen off after 14 days, you can remove them. If your incision has no drainage, it can be left uncovered after three days. Showering You can take a shower three days after surgery. Take your collar off while in the shower. Avoid taking tub baths, swimming and going in hot tubs until the incision is completely healed (four to six weeks). Taking medication Do not take anti-inflammatory medications (NSAIDS) for at least three months after surgery. These drugs can interfere with how you heal. NSAIDs include ib uprofen, Advil, Aleve, naproxen, Naprosyn, Mobic, meloxicam, Celebrex, diclofenac. If you need refills on your prescriptions, contact our office at least two days before you are out of pills so we have sufficient time to process your request. Refill requests on Thursday afternoons and holidays likely will be addressed on the next day. Start weaning yourself from pain medications as soon as you are able. Remember, pain is a natural part of the healing process. The goal is not to eliminate all pain but to keep you comfortable as you heal. Pain medications should be used only for a short period of time. Before taking Tylenol (acetaminophen), be aware that your pain medication probably has acetaminophen in it. Taking additional Tylenol or acetaminophen can put you over the daily recommended 3,000 milligrams, which can harm your liver. If you are taking a muscle relaxer, one of the side effects is drowsiness. If you feel too drowsy to safely get up and move around, take the muscle relaxer less often. Do not use tobacco products If you had been a smoker or used tobacco, you were required to stop before surgery You've come this far, so why not quit for good. If you cannot do so, you must not use tobacco products for at least three months. Nicotine will keep you from properly healing If you have any other concerns, call our office at: before going to an emergency room. In most cases we can help you or get you an appointment quickly Be active, but no lifting We want you to be active as soon as you get home from the hospital. Get up and walk often. If you go up and down stairs, make sure you hold onto the railing and have someone with you. Avoid bending and twisting your neck as much as you can, and do not lift anything over 10 pounds until your surgeon says it's OK. And no driving You cannot drive until you are no longer taking narcotic pain medications or muscle relaxers and you can move well enough to be safe behind the wheel. Most patients can begin driving after the 6 week postoperative appointment. Your surgeon will let you know when you can start driving Eating Ice and Popsicles can help relieve a sore throat. Eat soft foods that are easy to swallow. Take small bites and chew your food well. You can begin eating other foods gradually as you start to feel better. Constipation and bloating Constipation is a common side effect of taking narcotic pain medication and a good reason to begin tapering yourself off of pain medication as soon as you can. Drink lots of fluids, be active and eat foods high in fiber to help relieve constipation If constipation is bothering you, a stool softener or laxative may help. Try one of the following, and always follow the instructions: Milk of Magnesia, MiraLAX, Dulcolax suppository. Fleet enema, magnesium citrate. When is it an emergency? If you have any of the following symptoms, call 911 or go to an emergency room right away: Trouble breathing Chest pain Excessive neck swelling Significant new weakness since your surgery If you have any other concern, call our office at [phone] before going to an emergency room. In most cases we can help you or get you an appointment quickly. Pending Studies at Discharge: No Stand-Alone Forms: [facility] Medications and DC Order Prescriptions: New oxycodone-acetaminophen [Percocet] 5-325 mg Tablet 1 - 2 tab PO Q4H PRN (Reason: pain) Qty: 30 RF: 0 cyclobenzaprine 10 mg Tablet 10 mg PO Q8 Qty: 42 RF: 0 oxycodone-acetaminophen [Percocet] 5-325 mg tablet 1 tab PO Q4H Qty: 20 RF: 0 Continued Novolog Flexpen U-100 Insulin 100 unit/mL (3 mL) insulin pen 150 units SQ DAILY RF: 0 (DME) Dexcom G6 Transmitter Device See Rx Instructions .ROUTE .MEDSUPPLY Qty: 1 RF: 3 metoprolol succinate 25 mg capsule,sprinkle,ER 24hr 25 mg PO QAM Qty: 90 RF: 3 atorvastatin 40 mg tablet 40 mg PO HS Qty: 90 RF: 3 ondansetron 4 mg tablet,disintegrating 4 mg PO Q6H PRN (Reason: Nausea) 90 Days Qty: 120 RF: 3 pregabalin [Lyrica] 150 mg capsule 150 mg PO BID Qty: 60 RF: 5 potassium chloride 10 mEq tablet extended release 40 meq PO BID 90 Days Qty: 720 RF: 3 Tresiba FlexTouch U-200 200 unit/mL (3 mL) insulin pen 80 unit SQ PM 90 Days Qty: 18 RF: 3 torsemide 20 mg tablet 40 mg PO QAM Qty: 200 RF: 3 diphenhydramine HCl [Allergy (diphenhydramine)] 25 mg capsule 25 mg PO DAILY PRN (Reason: allergy symptoms) Qty: 90 RF: 0 promethazine 25 mg tablet 25 mg PO UD PRN (Reason: Nausea) Qty: 30 RF: 3 esomeprazole magnesium [Nexium] 40 mg capsule,delayed release(DR/EC) 40 mg PO BID Qty: 180 RF: 3 fluoxetine 20 mg tablet 30 mg PO DAILY Qty: 45 RF: 5 lorazepam 0.5 mg tablet 0.5 mg PO Q8H PRN (Reason: anxiety) Qty: 20 RF: 0 cinnamon bark [Cinnamon] 500 mg capsule 2,000 mg PO QAM RF: 0 albuterol sulfate [Proventil HFA] 90 mcg/actuation HFA aerosol inhaler 2 puffs INH UD PRN (Reason: COPD) RF: 0 Symbicort 160-4.5 mcg/actuation HFA aerosol inhaler 2 puffs INH BID PRN (Reason: Shortness Of Breath Or Wheezing) RF: 0 nitroglycerin 0.4 mg tablet, sublingual 0.4 mg SL USEASDIRECTD PRN (Reason: ACID REFLUX AND CHEST PAIN) RF: 0 bismuth subsalicylate [Anti-Diarrheal] 262 mg/15 mL Suspension 262 mg PO UD PRN (Reason: Diarrhea) RF: 0 (DME) pen needle, diabetic [BD Ultra-Fine Ivon Pen Needle] 32 gauge x 5/32" needle 1 .ROUTE .COMPLEX RF: 0 Ozempic 1 mg/dose (2 mg/1.5 mL) pen injector 1 mg subcut WK RF: 0 Discontinued oxycodone-acetaminophen 5-325 mg tablet 1 tab PO HS PRN (Reason: Pain) RF: 0 aspirin [Adult Low Dose Aspirin] 81 mg tablet,delayed release (DR/EC) 81 mg PO QAM RF: 0 celecoxib [Celebrex] 200 mg capsule 200 mg PO QAM RF: 0 Discharge Orders: Discharge Order (Routine); Ordered 12/16/20 Ordered By: Aysha Moon Admission Data Admit Date/Time: 12/14/20 13:43 Attending Provider: Aysha Moon Admit Provider: Aysha Moon Primary Care Provider: Jacki Phelan Other Providers: Mata Baez ; Violetta Pérez ; Travis Trinidad ; Tylor Padilla ; Faraz Walton ; Yang Stovall ; Pranay Ruth ; Nichole Painter ; Mariella Mejia ; Yo Campo ; Lucy Power ; Nicole Eastman ; eJrry Frausto ; David Zhang ; Adam Pineda ; Violetta Rosenthal ; Serg Ferris ; Kasey Almazan ; Amandeep Castle ; Travis Wolff ; Giacomo Vega ; Tootie Waddell ; Samuel Quinn ; Lucy Cartagena ; Hussein Flores ; Mateo Lugo ; [facility] Coding Level of Care Code D/C DAY MANAGEMENT <30 MINS Diagnoses Status post spinal surgery Z98.890
--- NOTE | 2020-12-18 13:51 | Operative Report ---
PATRICIA Post Operative Report Pre & Post Diagnosis Operation Date: 12/14/20 Pre-Op Diagnosis: Cervical myelopathy with C6-7 severe central stenosis, previous anterior fusion C4-C6 Post-Op Diagnosis: Cervical myelopathy with C6-7 severe central stenosis, previous anterior fusion C4-C6 I identified the patient and participated in the time-out.: Yes Procedure 1. Removal of hardware anterior cervical spine (C4-C6) 2. Assessment of fusion mass from prior fusion (C4-C6) 3. Anterior Cervical Discectomy and Fusion C6-C7 4. Anterior Cervical Instrumentation same levels 5. Anterior Interbody Device same levels 6. Local Autograft for anterior cervical fusion 7. Allograft, morselized (DBM) Surgeon Aysha Moon MD Yarn Rewinder David Perez PA-C Estimated Blood Loss 150 Findings Consistent with Post-Op Diagnosis Specimens none Description of Procedure Implants inserted: 1. K2M [place] Cervical Interbody - 7deg, 13x16, 9mm 2. K2M [place] anterior cervical plate 24mm with 4.0x14mm screwsx2 at C7, 4.5x14mm screwsx2 at C6 3. [place] Jazmine DBM Implants removed: 1. [employer] SLIM-LOC two-level anterior cervical plate (41mm) and six 4.5mm screws Drains: 1. PASTORA drain x 1 (10 [place]) Indications: Patient is a 55 year old male with previous ACDF C4-C6 fpr cervical myelopathy in 2006 who presented to my clinic on November 02, 2020 with symptoms concerning for worsening myelopathy in the last few months with worsened balance, dexterity and fine motor issues, and right upper extremity weakness. Imaging was consistent with severe central stenosis at C6-7 and solid fusion at C4-6. 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 A discussion was had with the patient about surgical and non-surgical management of this problem. Informed consent was obtained and patient was booked for above procedure. On day of surgery, patient was identified in pre-op holding area. History and Physical was updated, surgical site was marked, and consent was confirmed. Risks, benefits and alternatives were discussed again and I answered all their questions. Description of procedure: Patient was brought to the operating room and underwent general anesthesia. Patient was placed supine on the operating table with neck in gentle extension. Face, eyes, bony prominences, and peripheral nerves were well protected. SCDs were applied to bilateral legs to reduce risk of DVT. Anterior cervical region was prepped and draped in standard fashion. A time-out was performed and documented. This included confirmation of administration of prophylactic antibiotics prior to incision. Anterior Hammonds-Rodriguez type approach was made on the right side using previous incision as the position was deemed appropriate for addressing the C6-7 level. Scar tissue was encountered from prior surgery throughout the case. The carotid artery was palpated and retracted laterally. The anterior cervical spine was visualized and the previous plate was palpate and exposed. The longus coli was elevated bilaterally and a self retaining retractor placed. The previous hardware was removed using dedicated Attenex drivers. This involved moving the blocking set screws into an unlocked position followed by removal of the 6 plate screws. Large amount of osteophytes were encountered distally anterior to the plate and were removed in order to allow for the removal of the plate. The plate was then removed. A straight curette was used to debride the previous screw holes and DBM allograft was used to fill the screw holes. The two previously involved levels inspected for fusion and no motion was identified. Dissection identified bridging bone across the levels. Anterior discectomy was then performed at the C6-7 level with disc knife, ronguers, and currettes. Anterior osteophytes were removed and saved for local autograft. [place] type distraction pins were placed into the vertebral body above and below the disc. Gentle distraction was applied. Posterior discectomy with decompression of the central spinal cord and bilateral foraminal areas was performed with high speed teri, curettes, and ronguers. This included the takedown of PLL for assessment of any disc protrusion posterior to it. Once the decompression was judged to be adequate, attention was turned to the preparation of the interspace for fusion. A teri and currettes were used to prepare endplates for fusion with flat, bleeding surfaces. A trial sizer was used to size the interbody device. The interbody device was packed with local bone and DBM allograft. The interbody device was placed in the interspace and the distraction pins were removed. Bone wax was used to control bleeding from the pin sites. An appropriate size anterior cervical plate was selected. The screw sites were pre-drilled. The plate was secured with two screws into the vertebral body above and two into the body below. Prior screw holes at the C6 level matched well with the new plate screw holes and were utilized. Given prior 4.5mm screws, similarly sized screws were used at this level with strong bony purchase. Distally, 4.0mm screws were used. The self retaining retractor was removed and the wound checked for hemostasis. Lateral portable x-ray imaging confirmed the correct surgical level but was limited due to body habitus and shadowing from the shoulders. The wound was irrigated. There was good hemostasis. A PASTORA drain was inserted below the incision. The platsyma layer was closed with 2-0 vicryl and the skin with 3-0 monocryl. Steristrips, and a sterile dressing were applied. The patient was awakened and taken to the recovery room in stable condition. Neuromonitoring was performed throughout the case using SSEP, MEP, EMG and vocal cord monitoring. No concerning neuromonitoring findings were noted throughout the case. There were no intraoperative complications noted. Sponge and needle counts were correct x2 at the conclusion of the case. I attest to the content of the Intraoperative Record and any orders documented therein. Any exceptions are noted below.
== END 2020-12-16 19:00 | disposition home health service (06) | DRG 472 ==
LOC: ASU 05:03 → 3E 13:43